=== PATIENT | male | born 1945 | race Caucasian/White ===

== ENCOUNTER 2019-02-03 10:12 | Observation (INO) ==
[2019-02-03] MEDS ORDERED: ASPIRIN CHEW 324 MG PO STA (10:26)
[2019-02-03] MEDS ORDERED: NITROGLYCERIN 2% OINTMENT 30GM TUBE EXT STA (10:26)
[2019-02-03 10:49] LABS: Basophils # (auto) 0.02 K/uL (0-0.2); Basophils % (auto) 0.2 %; Hematocrit (blood only) 43.6 % (42-52); Hemoglobin 15.6 g/dL (14.0-18.0); Immature Granulocytes # (auto) 0.04 K/uL (0.00-0.02); Immature Granulocytes % (auto) 0.4 %; Lymphocytes % (auto) 21.6 %; Mean Corpuscular Hgb Conc 35.8 g/dL (32-36); Mean Corpuscular Volume 88.8 fL (80-100); Mean Platelet Volume 10.2 fL (7.4-10.4); Monocytes # (auto) 0.58 K/uL (0.11-0.59); Neutrophils % (auto) 70.8 %; Platelet Count 229 K/uL (130-400); RDW Coefficient of Variation 13.5 % (11.5-14.5); Red Blood Count 4.91 M/uL (4.7-6.1); White Blood Count 9.74 K/uL (4.8-10.8)
--- NOTE | 2019-02-03 10:52 | XRay Report ---
SINGLE VIEW CHEST CLINICAL HISTORY: Atypical chest pain. FINDINGS: An AP, portable, upright chest radiograph is compared to study dated 04/11/2014. The examina tion is degraded by portable technique and patient rotation. The cardiomediastinal silhouette is unr emarkable, noting atherosclerotic calcification of the thoracic aorta. There is bibasilar atelectasis . No airspace consolidation or large pleural effusion is identified. No pneumothorax is seen. The ske letal structures are osteopenic. The bony thorax is grossly intact. IMPRESSION: No acute cardiopulmonary abnormality. Electronically signed by: Carlos Jennings M.D. 02/03/2019 10:51 AM
[2019-02-03 10:56] LABS: iSTAT Creatinine 0.8 mg/dl (0.6-1.3); iSTAT Hemoglobin 15.3 g/dl (14.0-18.0); iSTAT Ionized Calcium 1.18 mmol/l (1.12-1.32); iSTAT Potassium 4.3 mEq/L (3.3-5.0)
[2019-02-03 11:06] LABS: Alanine Aminotransferase 39 U/L (12-78); Albumin Level 3.7 gm/dl (3.4-5.0); Aspartate Aminotransferase 24 U/L (15-37); BUN Creatinine Ratio 18.8 (10-20); Blood Urea Nitrogen 19 mg/dl (7-18); Calcium 8.9 mg/dl (8.5-10.1); Carbon Dioxide 18 mmol/L (21-32); Chloride 106 mmol/L (98-107); Creatinine Clr Calc Pharmacy 81.6 ml/min; Est GFR (African American) 85.3; Est GFR (Non-African American) 73.6; Glucose 173 mg/dl (70-99); Potassium 4.2 mmol/L (3.5-5.1); Sodium 136 mmol/L (136-145)
[2019-02-03 11:11] LABS: Alkaline Phosphatase 66 U/L (45-117); Bilirubin,Total 0.5 mg/dl (0.2-1); Creatine Kinase 163 U/L (39-308); Creatine Kinase MB 2.3 ng/ml (0.5-3.6); Globulin 3.6 gm/dl (2.5-4.0); Total Protein 7.3 gm/dl (6.4-8.2); Troponin I < 0.015 ng/ml (0-0.045)
[2019-02-03] MEDS ORDERED: OPTIRAY 320 125ml IV PRN (11:47)
--- NOTE | 2019-02-03 12:02 | CT Scan Report ---
CT ANGIOGRAM OF THE CHEST CLINICAL HISTORY: Atypical chest pain. Dyspnea. COMPARISON STUDY: Chest x-ray dated 02/03/2019. TECHNIQUE: Following the IV administration of 97 cc of Optiray 320, CT angiogram of the chest was per formed from the upper abdomen to the thoracic inlet utilizing the pulmonary embolus protocol. Images are reviewed in the axial, sagittal, and coronal planes. 3-D MIPS images are created and assessed. IV contrast was administered without complication. A dose lowering technique was utilized adhering to the principles of ALARA. CT DOSE: 728.48 mGy.cm FINDINGS: Thyroid: The thyroid gland is mildly enlarged and heterogeneous. Thoracic aorta: There is atherosclerotic calcification of the thoracic aorta, which is normal in shanna carrillo and demonstrates standard 3-vessel arch anatomy. The thoracic aorta is not well opacified. Pulmonary vasculature: The pulmonary trunk is normal in caliber. There are no filling defects identif ied in main, lobar, or segmental pulmonary branches to suggest pulmonary embolus. Heart: The heart is top normal in size and there is trace pericardial effusion. The coronary arteries are densely calcified. Lungs and pleural spaces: Emphysematous change is noted. There is no airspace consolidation or pleura l effusion. Bibasilar scarring/atelectasis is observed. The trachea and central airways are clear. Mediastinum: There is no mediastinal lymphadenopathy. Kathy: Clear. Axillae: There is no axillary lymphadenopathy. Upper abdomen: There is a small hiatal hernia. Circumferential wall thickening is noted in the distal esophagus. The liver appears steatotic. Skeletal structures: The skeletal structures are osteopenic. Mild degenerative change is noted throug hout the thoracic spine. No lytic or blastic bony lesions are seen. IMPRESSION: 1. There is no evidence of pulmonary embolus in the main, lobar, or segmental pulmonary arteries. 2. Emphysema. 3. There is no airspace consolidation or pleural effusion. 4. There is a small hiatal hernia, and circumferential wall thickening is noted in the distal esophag us. Correlate clinically for evidence of esophagitis. This could be further assessed by endoscopy if clinically warranted. Electronically signed by: Carlos Jennings M.D. 02/03/2019 12:00 PM
[2019-02-03] MEDS ORDERED: SUCRALFATE 1 GM TAB PO STA (12:05)
[2019-02-03] MEDS ORDERED: FAMOTIDINE 20 MG TAB PO ONE (12:05)
[2019-02-03] MEDS: GI COCKTAIL ED USE PO ONE ×2 (12:24→12:25)
[2019-02-03] MEDS ORDERED: NITROGLYCERIN SL 0.4 MG/TAB TAB SL PRN (13:56)
[2019-02-03] MEDS ORDERED: POLYETHYLENE (MIRALAX) 17 GM PACK PO PRN (13:56)
[2019-02-03] MEDS ORDERED: ONDANSETRON INJ 2 MG/ML 2 ML VIAL IV PRN (13:56)
[2019-02-03] MEDS ORDERED: ACETAMINOPHEN 325 MG TAB PO PRN (13:56)
[2019-02-03] MEDS ORDERED: GLUCAGON FOR INJ 1 MG VIAL SQ PRN (14:35)
[2019-02-03] MEDS ORDERED: GLUCOSE 10 TABS/TUBE PO PRN (14:35)
[2019-02-03] MEDS ORDERED: CARBOHYDRATES FOR HYPOGLYCEMIA PO PRN (14:35)
[2019-02-03] MEDS ORDERED: DEXTROSE 50% 50 ML SYRINGE IV PRN (14:35)
[2019-02-03] MEDS ORDERED: GLUCOSE 40% GEL 15 GM TUBE PO PRN (14:35)
[2019-02-03] MEDS ORDERED: ALBUT/IPRATROP 3MG/0.5MG NEB 3 ML VIAL NEB PRN (14:36)
--- NOTE | 2019-02-03 14:43 | Emergency Department Note ---
Entered by Violeta Israel acting as a scribe for Lele Larson MD History of Present Illness General Chief complaint: Chest Pain Stated complaint: CHEST PAIN, LEFT ARM NUMBNESS- CARDIAC HX Time Seen by Provider: 02/03/19 10:20 Source: patient Mode of arrival: wheelchair Limitations: no limitations History of Present Illness Onset (ago): hour(s) 4 Location: chest Radiation: non-radiation Pain Consistency: + constant Quality: + other ("tightness") Relieved By: + rest (laying down) Exacerbated By: + movement Associated symptoms: + diaphoresis and + other (+cold symptoms, +left arm pain) Treatments prior to arrival: none The patient is a 73 year old male who presents to the Emergency Room with complaints of chest pain since 0830 this morning. He describes the pain as feeling like "tightness". Laying down helps to relieve his pain and movement worsens his discomfort. He admits to a history of 2 previous AR's and states he had similar pain back in 2008 before undergoing a cardiac catheterization. He also complains of left arm pain and diaphoresis. The patient does take daily blood thinners. He denies taking any medications for ED. He does admit to some recent cold symptoms, but states they have mostly resolved. Allergies Allergy/AdvReac Type Severity Reaction Status Date / Time No Known Allergies Allergy Unverified 02/03/19 12:22 Past Med/Surg History Medical History History of heart attack Social History Preferred Language: Marshallese Communication Ability: Effective Hand Stripper Required: No Beliefs That Will Affect Care: None Current Living Situation: Alone Other Information That Helps Us Care for You: No Feels Safe at Home: Yes Safety Concerns: Feels Safe At This Time Smoking Status: Former smoker Hx Alcohol Use: No Hx Substance Use: No Review of Systems See HPI for pertinent positives & negatives. and A total of 10 systems reviewed and were otherwise negative Physical Exam Vital Signs Vital Signs - 24 hr 02/03/19 10:20 02/03/19 10:23 02/03/19 10:26 Temperature 36.6 C Temperature Source Oral Sepsis Recent Fever Within 48 Hours No Sepsis New/Unexplained Change in Mental Status No Sepsis Action Taken by Nursing No Action Required Pulse Rate 190 H 100 H 97 H Pulse Rate [Apical] 100 H Pulse Rate [Finger] Pulse Rate from SpO2 Sensor 99 H 96 H Pulse Rhythm Regular Pulse Rhythm [Apical] Regular Pulse Rhythm [Finger] Pulse Strength [Apical] Normal Pulse Strength [Finger] Respiratory Rate 26 H 18 Respiratory Effort / Characteristics SOB on Exertion Respiratory Depth Normal Respiratory Pattern Regular Blood Pressure 120/68 146/105 H Blood Pressure [Right Arm] 146/105 H Blood Pressure Mean 85 118 Blood Pressure Mean [Right Arm] 118 Blood Pressure Position [Right Arm] Lying Pulse Oximetry 94 97 96 Oxygen Delivery Method Room Air Room Air 02/03/19 10:42 02/03/19 10:45 02/03/19 10:58 Temperature Temperature Source Sepsis Recent Fever Within 48 Hours Sepsis New/Unexplained Change in Mental Status Sepsis Action Taken by Nursing Pulse Rate 98 H 100 H 103 H Pulse Rate [Apical] Pulse Rate [Finger] Pulse Rate from SpO2 Sensor 97 H 100 H 102 H Pulse Rhythm Pulse Rhythm [Apical] Pulse Rhythm [Finger] Pulse Strength [Apical] Pulse Strength [Finger] Respiratory Rate 23 24 17 Respiratory Effort / Characteristics Respiratory Depth Respiratory Pattern Blood Pressure 104/64 Blood Pressure [Right Arm] Blood Pressure Mean 77 Blood Pressure Mean [Right Arm] Blood Pressure Position [Right Arm] Pulse Oximetry 93 94 92 Oxygen Delivery Method 02/03/19 11:00 02/03/19 11:01 02/03/19 11:15 Temperature Temperature Source Sepsis Recent Fever Within 48 Hours Sepsis New/Unexplained Change in Mental Status Sepsis Action Taken by Nursing Pulse Rate 101 H 98 H 98 H Pulse Rate [Apical] Pulse Rate [Finger] 101 H Pulse Rate from SpO2 Sensor 102 H 99 H 98 H Pulse Rhythm Pulse Rhythm [Apical] Pulse Rhythm [Finger] Pulse Strength [Apical] Pulse Strength [Finger] Respiratory Rate 25 H 25 H 22 Respiratory Effort / Characteristics Respiratory Depth Respiratory Pattern Blood Pressure 106/74 Blood Pressure [Right Arm] 104/64 Blood Pressure Mean 84 Blood Pressure Mean [Right Arm] 77 Blood Pressure Position [Right Arm] Pulse Oximetry 93 93 92 Oxygen Delivery Method Room Air 02/03/19 11:30 02/03/19 11:31 02/03/19 11:53 Temperature Temperature Source Sepsis Recent Fever Within 48 Hours Sepsis New/Unexplained Change in Mental Status Sepsis Action Taken by Nursing Pulse Rate 87 87 Pulse Rate [Apical] Pulse Rate [Finger] 83 Pulse Rate from SpO2 Sensor 88 88 Pulse Rhythm Pulse Rhythm [Apical] Pulse Rhythm [Finger] Pulse Strength [Apical] Pulse Strength [Finger] Respiratory Rate 21 21 18 Respiratory Effort / Characteristics Respiratory Depth Respiratory Pattern Blood Pressure 106/69 Blood Pressure [Right Arm] 124/86 Blood Pressure Mean 81 Blood Pressure Mean [Right Arm] 98 Blood Pressure Position [Right Arm] Pulse Oximetry 93 92 96 Oxygen Delivery Method Room Air 02/03/19 11:54 02/03/19 11:55 02/03/19 12:00 Temperature Temperature Source Sepsis Recent Fever Within 48 Hours Sepsis New/Unexplained Change in Mental Status Sepsis Action Taken by Nursing Pulse Rate 78 79 83 Pulse Rate [Apical] Pulse Rate [Finger] Pulse Rate from SpO2 Sensor 79 79 84 Pulse Rhythm Pulse Rhythm [Apical] Pulse Rhythm [Finger] Pulse Strength [Apical] Pulse Strength [Finger] Respiratory Rate 22 20 24 Respiratory Effort / Characteristics Respiratory Depth Respiratory Pattern Blood Pressure 124/86 114/79 Blood Pressure [Right Arm] Blood Pressure Mean 98 90 Blood Pressure Mean [Right Arm] Blood Pressure Position [Right Arm] Pulse Oximetry 97 97 96 Oxygen Delivery Method 02/03/19 12:01 02/03/19 12:15 02/03/19 12:26 Temperature Temperature Source Sepsis Recent Fever Within 48 Hours Sepsis New/Unexplained Change in Mental Status Sepsis Action Taken by Nursing Pulse Rate 85 84 Pulse Rate [Apical] Pulse Rate [Finger] 91 H Pulse Rate from SpO2 Sensor 85 84 Pulse Rhythm Pulse Rhythm [Apical] Pulse Rhythm [Finger] Pulse Strength [Apical] Pulse Strength [Finger] Respiratory Rate 26 H 13 19 Respiratory Effort / Characteristics Respiratory Depth Respiratory Pattern Blood Pressure Blood Pressure [Right Arm] 114/79 Blood Pressure Mean Blood Pressure Mean [Right Arm] 90 Blood Pressure Position [Right Arm] Pulse Oximetry 94 95 95 Oxygen Delivery Method Room Air 02/03/19 12:30 02/03/19 12:31 02/03/19 12:45 Temperature Temperature Source Sepsis Recent Fever Within 48 Hours Sepsis New/Unexplained Change in Mental Status Sepsis Action Taken by Nursing Pulse Rate 87 84 79 Pulse Rate [Apical] Pulse Rate [Finger] Pulse Rate from SpO2 Sensor 85 84 77 Pulse Rhythm Pulse Rhythm [Apical] Pulse Rhythm [Finger] Pulse Strength [Apical] Pulse Strength [Finger] Respiratory Rate 29 H 29 H 18 Respiratory Effort / Characteristics Respiratory Depth Respiratory Pattern Blood Pressure 129/91 Blood Pressure [Right Arm] Blood Pressure Mean 103 Blood Pressure Mean [Right Arm] Blood Pressure Position [Right Arm] Pulse Oximetry 96 97 96 Oxygen Delivery Method 02/03/19 13:00 02/03/19 13:15 02/03/19 13:24 Temperature Temperature Source Sepsis Recent Fever Within 48 Hours Sepsis New/Unexplained Change in Mental Status Sepsis Action Taken by Nursing Pulse Rate 68 74 74 Pulse Rate [Apical] Pulse Rate [Finger] Pulse Rate from SpO2 Sensor 71 76 Pulse Rhythm Pulse Rhythm [Apical] Pulse Rhythm [Finger] Pulse Strength [Apical] Pulse Strength [Finger] Respiratory Rate 22 22 22 Respiratory Effort / Characteristics Respiratory Depth Respiratory Pattern Blood Pressure Blood Pressure [Right Arm] Blood Pressure Mean Blood Pressure Mean [Right Arm] Blood Pressure Position [Right Arm] Pulse Oximetry 98 95 95 Oxygen Delivery Method Room Air 02/03/19 13:56 Temperature 36.6 C Temperature Source Oral Sepsis Recent Fever Within 48 Hours Sepsis New/Unexplained Change in Mental Status Sepsis Action Taken by Nursing Pulse Rate 74 Pulse Rate [Apical] 72 Pulse Rate [Finger] 72 Pulse Rate from SpO2 Sensor Pulse Rhythm Pulse Rhythm [Apical] Regular Pulse Rhythm [Finger] Regular Pulse Strength [Apical] Normal Pulse Strength [Finger] Normal Respiratory Rate 20 Respiratory Effort / Characteristics Non-Labored Spontaneous Respiratory Depth Normal Respiratory Pattern Regular Blood Pressure Blood Pressure [Right Arm] 149/99 H Blood Pressure Mean Blood Pressure Mean [Right Arm] 115 Blood Pressure Position [Right Arm] Lying Pulse Oximetry 97 Oxygen Delivery Method Room Air GENERAL: Awake, alert, ashen in appearance, in no distress HENT: Normocephalic, atraumatic. Oropharynx unremarkable. EYES: Normal conjunctiva. Sclera non-icteric. NECK: Supple. No nuchal rigidity. FROM. No masses. RESPIRATORY: Clear to auscultation. No wheezes. No rales. Normal respiratory effort. CARDIAC: Normal rate. Normal rhythm. No murmurs. No rubs. Extremities warm and well perfused. Pulses equal. No JVD. GI: Soft, non-distended. No tenderness to palpation. No rebound or guarding. No masses. RECTAL: Deferred. MUSCULOSKELETAL: Atraumatic. Chest examination reveals no tenderness. The back is symmetrical on inspection without obvious abnormality. There is no CVA tenderness to palpation. No joint edema. LOWER EXTREMITIES: Calves are equal size bilaterally and non-tender. No edema. No discoloration. NEURO: Normal sensorium. No sensory or motor deficits noted. Course 1021: The patient was evaluated in room A1, and a complete history and physical examination were performed. 1221: I discussed the patients case with Roseline Baeza PA-C, [facility]. The patient will be further evaluated. 1235: I reevaluated the patient. He is resting comfortably. I discussed my recommendation he remain in the hospital for further evaluation and management and he verbalized complete understanding and agreement. Consultations Consultation #1: I discussed the patients case with Roseline Baeza PA-C, [facility]. The patient will be further evaluated. Time: 12:21 Administered Medications Discontinued Medications Al Hydrox/Mg Hydrox/Simethicone () 1 dose PO ONE ONE Stop: 02/03/19 12:06 Last Admin: 02/03/19 12:25 Dose: 1 dose Documented by: [id number] Admin: 02/03/19 12:24 Dose: 1 dose Documented by: [id number] Aspirin (Aspirin) 324 mg PO NOW STA Stop: 02/03/19 10:27 Last Admin: 02/03/19 10:58 Dose: 324 mg Documented by: [id number] Famotidine (Pepcid) 20 mg PO NOW ONE Stop: 02/03/19 12:06 Last Admin: 02/03/19 12:25 Dose: 20 mg Documented by: [id number] Ioversol (Optiray 320 125ml) 97 ml IV ONCE PRN PRN Reason: Interaction Checking Stop: 02/07/19 11:46 Last Admin: 02/03/19 11:48 Dose: 97 ml Documented by: [id number] Nitroglycerin (Nitro-Bid 2%) 1 inch EXT NOW STA Stop: 02/03/19 10:27 Last Admin: 02/03/19 10:59 Dose: 1 inch Documented by: [id number] Sucralfate (Carafate Tab) 1 gm PO NOW STA Stop: 02/03/19 12:06 Last Admin: 02/03/19 12:25 Dose: 1 gm Documented by: [id number] Medical Decision Making Differential Diagnosis Differential diagnoses includes but is not limited to acute coronary syndrome, myocardial infarction, pericarditis, pulmonary embolus, aortic dissection, pneumonia, pneumothorax, musculoskeletal, shingles, esophageal. Medical Records Attestation: I reviewed the patient's medical records. Home Medications Current Medication List: was personally reviewed by me Laboratory Data Attestation: I reviewed the patient's lab results. Result diagrams: 02/03/19 10:31 02/03/19 10:31 Lab Results 02/03/19 02/03/19 02/03/19 Range/Units 10:31 10:31 10:45 WBC 9.74 (4.8-10.8) K/uL RBC 4.91 (4.7-6.1) M/uL Hgb 15.6 (14.0-18.0) g/dL POC Hgb 15.3 (14.0-18.0) g/dl Hct 43.6 (42-52) % POC Hct 45 (42-52) % MCV 88.8 (80-100) fL MCH 31.8 (25-34) pg MCHC 35.8 (32-36) g/dL RDW Std Deviation 44.0 (36.4-46.3) fL RDW Coeff of Jatinder 13.5 (11.5-14.5) % Plt Count 229 (130-400) K/uL MPV 10.2 (7.4-10.4) fL Immature Gran % (Auto) 0.4 % Neut % (Auto) 70.8 % Lymph % (Auto) 21.6 % [place] % (Auto) 6.0 % Eos % (Auto) 1.0 % Baso % (Auto) 0.2 % Immature Gran # (Auto) 0.04 H (0.00-0.02) K/uL Neut # (Auto) 6.90 H (1.4-6.5) K/uL Lymph # (Auto) 2.10 (1.2-3.4) K/uL [place] # (Auto) 0.58 (0.11-0.59) K/uL Eos # (Auto) 0.10 (0-0.5) K/uL Baso # (Auto) 0.02 (0-0.2) K/uL POC Sodium 138 (135-144) mEq/L Sodium 136 (136-145) mmol/L POC Potassium 4.3 (3.3-5.0) mEq/L Potassium 4.2 (3.5-5.1) mmol/L POC Chloride 102 (101-112) mEq/L Chloride 106 (98-107) mmol/L Carbon Dioxide 18 L (21-32) mmol/L POC Total CO2 19 L (24-31) mEq/l Anion Gap 12.0 H (3-11) POC Anion Gap 23.0 (16-25) mmol/L POC BUN 20 H (7-18) mg/dl BUN 19 H (7-18) mg/dl Creatinine 1.02 (0.6-1.4) mg/dl POC Creatinine 0.8 (0.6-1.3) mg/dl Est Cr Clr Drug Dosing 81.6 ml/min Est GFR ( Amer) 85.3 Est GFR (Non-Af Amer) 73.6 BUN/Creatinine Ratio 18.8 (10-20) Glucose 173 H (70-99) mg/dl POC Glucose (70-99) POC Glucose (other) 184 H (70-99) mg/dl Calcium 8.9 (8.5-10.1) mg/dl POC Ioniz Calcium Ruddy 1.18 (1.12-1.32) mmol/l Total Bilirubin 0.5 (0.2-1) mg/dl AST 24 (15-37) U/L ALT 39 (12-78) U/L Alkaline Phosphatase 66 (45-117) U/L Total Creatine Kinase 163 (39-308) U/L CK-MB (CK-2) 2.3 (0.5-3.6) ng/ml CK/CKMB % Calc 1.4 (0-3.0) Troponin I < 0.015 (0-0.045) ng/ml Total Protein 7.3 (6.4-8.2) gm/dl Albumin 3.7 (3.4-5.0) gm/dl Globulin 3.6 (2.5-4.0) gm/dl Albumin/Globulin Ratio 1.0 (0.9-2) Lipase 193 (73-393) U/L 02/03/19 Range/Units 14:04 WBC (4.8-10.8) K/uL RBC (4.7-6.1) M/uL Hgb (14.0-18.0) g/dL POC Hgb (14.0-18.0) g/dl Hct (42-52) % POC Hct (42-52) % MCV (80-100) fL MCH (25-34) pg MCHC (32-36) g/dL RDW Std Deviation (36.4-46.3) fL RDW Coeff of Jatinder (11.5-14.5) % Plt Count (130-400) K/uL MPV (7.4-10.4) fL Immature Gran % (Auto) % Neut % (Auto) % Lymph % (Auto) % [place] % (Auto) % Eos % (Auto) % Baso % (Auto) % Immature Gran # (Auto) (0.00-0.02) K/uL Neut # (Auto) (1.4-6.5) K/uL Lymph # (Auto) (1.2-3.4) K/uL [place] # (Auto) (0.11-0.59) K/uL Eos # (Auto) (0-0.5) K/uL Baso # (Auto) (0-0.2) K/uL POC Sodium (135-144) mEq/L Sodium (136-145) mmol/L POC Potassium (3.3-5.0) mEq/L Potassium (3.5-5.1) mmol/L POC Chloride (101-112) mEq/L Chloride (98-107) mmol/L Carbon Dioxide (21-32) mmol/L POC Total CO2 (24-31) mEq/l Anion Gap (3-11) POC Anion Gap (16-25) mmol/L POC BUN (7-18) mg/dl BUN (7-18) mg/dl Creatinine (0.6-1.4) mg/dl POC Creatinine (0.6-1.3) mg/dl Est Cr Clr Drug Dosing ml/min Est GFR ( Amer) Est GFR (Non-Af Amer) BUN/Creatinine Ratio (10-20) Glucose (70-99) mg/dl POC Glucose 92 (70-99) POC Glucose (other) (70-99) mg/dl Calcium (8.5-10.1) mg/dl POC Ioniz Calcium Ruddy (1.12-1.32) mmol/l Total Bilirubin (0.2-1) mg/dl AST (15-37) U/L ALT (12-78) U/L Alkaline Phosphatase (45-117) U/L Total Creatine Kinase (39-308) U/L CK-MB (CK-2) (0.5-3.6) ng/ml CK/CKMB % Calc (0-3.0) Troponin I (0-0.045) ng/ml Total Protein (6.4-8.2) gm/dl Albumin (3.4-5.0) gm/dl Globulin (2.5-4.0) gm/dl Albumin/Globulin Ratio (0.9-2) Lipase (73-393) U/L Imaging Data Radiologist's Impression: Radiology results as stated below per my review and the radiologist's interpretation: SINGLE VIEW CHEST CLINICAL HISTORY: Atypical chest pain. FINDINGS: An AP, portable, upright chest radiograph is compared to study dated 04/11/2014. The examination is degraded by portable technique and patient rotation. The cardiomediastinal silhouette is unremarkable, noting atherosclerotic calcification of the thoracic aorta. There is bibasilar atelectasis. No airspace consolidation or large pleural effusion is identified. No pneumothorax is seen. The skeletal structures are osteopenic. The bony thorax is grossly intact. IMPRESSION: No acute cardiopulmonary abnormality. Electronically signed by: Carlos Jennings M.D. 02/03/2019 10:[address] ANGIOGRAM OF THE CHEST CLINICAL HISTORY: Atypical chest pain. Dyspnea. COMPARISON STUDY: Chest x-ray dated 02/03/2019. TECHNIQUE: Following the IV administration of 97 cc of Optiray 320, CT angiogram of the chest was performed from the upper abdomen to the thoracic inlet utilizing the pulmonary embolus protocol. Images are reviewed in the axial, sagittal, and coronal planes. 3-D MIPS images are created and assessed. IV contrast was administered without complication. A dose lowering technique was utilized adhering to the principles of ALARA. CT DOSE: 728.48 mGy.cm FINDINGS: Thyroid: The thyroid gland is mildly enlarged and heterogeneous. Thoracic aorta: There is atherosclerotic calcification of the thoracic aorta, which is normal in caliber and demonstrates standard 3-vessel arch anatomy. The thoracic aorta is not well opacified. Pulmonary vasculature: The pulmonary trunk is normal in caliber. There are no filling defects identified in main, lobar, or segmental pulmonary branches to suggest pulmonary embolus. Heart: The heart is top normal in size and there is trace pericardial effusion. The coronary arteries are densely calcified. Lungs and pleural spaces: Emphysematous change is noted. There is no airspace consolidation or pleural effusion. Bibasilar scarring/atelectasis is observed. The trachea and central airways are clear. Mediastinum: There is no mediastinal lymphadenopathy. Kathy: Clear. Axillae: There is no axillary lymphadenopathy. Upper abdomen: There is a small hiatal hernia. Circumferential wall thickening is noted in the distal esophagus. The liver appears steatotic. Skeletal structures: The skeletal structures are osteopenic. Mild degenerative change is noted throughout the thoracic spine. No lytic or blastic bony lesions are seen. IMPRESSION: 1. There is no evidence of pulmonary embolus in the main, lobar, or segmental pulmonary arteries. 2. Emphysema. 3. There is no airspace consolidation or pleural effusion. 4. There is a small hiatal hernia, and circumferential wall thickening is noted in the distal esophagus. Correlate clinically for evidence of esophagitis. This could be further assessed by endoscopy if clinically warranted. Electronically signed by: Carlos Jennings M.D. 02/03/2019 12:00 PM ECG Data Attestation: I personally reviewed and interpreted this ECG as follows: Indication: chest pain Rate (beats per minute): 97 Rhythm: normal sinus Findings: no ST depression and no ST elevation Blood Pressure Blood Pressure Findings: Normal blood pressure Blood Pressure Disposition: did not require urgent referral MDM Narrative This is a 73-year-old male who presents emergency department complaining of c hest pain. The chest pain was relieved by nitro. The patient currently has no complaints. His EKG does not show any evidence of a cardiac ischemia. Patient has a history of coronary artery disease. Because of this I did discuss the case with the hospitalist service who agreed to admit the patient. Patient was in agreement with the treatment plan. Impression & Plan Chest pain Discharge Plan Visit Data *Final* Discharge Date/Time: 02/03/19 13:24 Chief Complaint: Chest Pain Stated Complaint: CHEST PAIN, LEFT ARM NUMBNESS- CARDIAC HX ED Provider: Lele Larson Discharge Problem: Chest pain Patient Disposition: Admitted As Inpatient Discharge Instructions Interventions: ED Discharge Assessment Last Done: 02/03/19 13:24 The scribe's documentation has been prepared under my direction and personally reviewed by me in its entirety. I confirm that the note above accurately reflects all work, treatment, procedures, and medical decision making performed by me.
[2019-02-03] MEDS ORDERED: LABETALOL HCL IV 5 MG/ML 20ML IV PRN (14:44)
--- NOTE | 2019-02-03 16:41 | History & Physical Report ---
Date of Service February 03, 2019 Assessment & Plan (1) Chest pain: This is a 73yo M with a PMH of Coronary Artery Disease, DM II, HTN and other medical problems listed below who presents to the ED after developing chest pain this morning around 8 AM that has since resolved. -R/o ACS; risk factors include HTN, DM II, HLD, former smoker -Initial troponin negative -EKG with ? lateral lead ST depression but not in contiguous leads -CXR-No acute cardiopulmonary abnormality, chest CTA without evidence of PE -Trend serial cardiac enzymes -Check 2D echo -Routine cardiology consult -NPO after midnight (2) CAD (coronary artery disease): Reported history of cardiac catheterization in 2007 at [facility], no intervention at that time due to complete occlusion of one coronary with collateral vessel development -Underwent an exercise stress test in summer 2017 that was reportedly negative -Will request to obtain records from outside hospital -Continue isosorbide mononitrate (need to confirm home dose), aspirin, statin (3) Diabetes mellitus, type II: Unknown a1c -Hold home agents -Basal/bolus insulin while in-patient -BSG AC HS (4) HTN (hypertension): Continue lisinopril/hctz, lopressor with hold parameters (5) HLD (hyperlipidemia): Continue statin DVT Ppx: SCDs Code status: FULL PCP: [facility] Dispo: Observation telemetry. Plan to return home once medically stable. Patient seen in collaboration with Dr. Tan. Please see addendum. History of Present Illness Chief Complaint: chest pain Primary Care Provider: NO PCP This is a 73yo M with a PMH of Coronary Artery Disease, DM II, HTN and other medical problems listed below who presents to the ED after developing chest pain this morning around 8 AM. Patient was driving his grandson to [place] when he developed sudden onset left-sided chest pain and pressure with radiation to left arm. Also associated with diaphoresis, lightheadedness and shortness of breath. Came to the ED for further evaluation. Chest pain subsided after nitroglycerin and patient has remained asymptomatic. Receives majority of care through [facility] and underwent a cardiac catheterization in 2007 but did not have any stents placed. Reports undergoing an exercise stress test in the summer 2017 that was normal. Is not sure dosing on any of his medications, but daughter is planning to return home to bring in medication list this evening. States that he is compliant with all meds, including insulin for diabetes. Gloria personal history of heart attack but has experienced similar chest pain 6 years ago. Significant family history of CAD, including father and brother experiencing MIs in their early 60s. Denies fever, chills, lightheadedness, headache, palpitations, shortness of breath, wheezing, nausea, vomiting, abdominal pain, diarrhea or constipation. No lower extremity swelling. Allergies Allergy/AdvReac Type Severity Reaction Status Date / Time No Known Allergies Allergy Unverified 02/03/19 12:22 Home Medications Home Medications Medication Instructions Recorded Confirmed Type albuterol sulfate 2 puff INHALATION QID PRN 02/03/19 02/03/19 History atorvastatin 80 mg PO HS 02/03/19 02/03/19 History budesonide-formoterol 2 puff INHALATION BID 02/03/19 02/03/19 History gabapentin 100 mg PO BID 02/03/19 02/03/19 History insulin glargine 30 units SUBCUT HS 02/03/19 02/03/19 History isosorbide mononitrate 0 mg PO DAILY 02/03/19 02/03/19 History lisinopril-hydrochlorothiazide 1 tab PO DAILY 02/03/19 02/03/19 History metformin 2 tabs PO PM 02/03/19 02/03/19 History metoprolol tartrate 25 mg PO DAILY 02/03/19 02/03/19 History Past Med/Surg History Medical History HLD (hyperlipidemia) (Chronic) Diabetes mellitus, type II (Chronic) HTN (hypertension) (Chronic) CAD (coronary artery disease) (Chronic) Surgical History History of cholecystectomy (Chronic) Social History Preferred Language: Occitan Communication Ability: Effective Bench Scientist Required: No Beliefs That Will Affect Care: None Current Living Situation: Alone Other Information That Helps Us Care for You: No Feels Safe at Home: Yes Safety Concerns: Feels Safe At This Time Smoking Status: Former smoker Hx Alcohol Use: No Hx Substance Use: Yes (medical ) Review of Systems Ten systems reviewed and negative except as noted in the HPI. Physical Exam Vital Signs (Past 24 Hours): Last Vital Signs Temp 36.6 C 02/03/19 15:22 Pulse 74 02/03/19 16:00 Resp 20 02/03/19 15:22 BP 123/79 02/03/19 15:22 Pulse Ox 94 02/03/19 15:22 Physical Exam: General Appearance: WD/WN, no apparent distress, resting comfortably Head: normocephalic, atraumatic Eyes: normal inspection, PERRL, EOMI ENT: hearing grossly normal, pharynx normal (moist mucous membranes) Neck: supple, no JVD, no adenopathy Respiratory/Chest: No chest tenderness on wall. lungs clear to auscultation. No wheezes, rales or rhonci. No respiratory distress or accessory muscle use Cardiovascular: Regular rate, rhythm, no murmur, normal peripheral pulses Abdomen/GI: Normal bowel sounds, soft, non-tender to palpation Extremities/Musculoskelatal: normal inspection, no calf tenderness, normal capillary refill, no pedal edema Neurologic/Psych: alert, normal mood/affect, oriented x 3 Skin: normal color, warm/dry Results & Data Laboratory Results Short CBC 02/03/19 Range/Units 10:31 WBC 9.74 (4.8-10.8) K/uL Hgb 15.6 (14.0-18.0) g/dL Hct 43.6 (42-52) % Plt Count 229 (130-400) K/uL BMP 02/03/19 10:31 Sodium 136 Potassium 4.2 Chloride 106 Carbon Dioxide 18 L BUN 19 H Creatinine 1.02 Glucose 173 H Calcium 8.9 Cardiac Enzymes 02/03/19 Range/Units 10:31 Total Creatine Kinase 163 (39-308) U/L CK-MB (CK-2) 2.3 (0.5-3.6) ng/ml Troponin I < 0.015 (0-0.045) ng/ml Liver Function 02/03/19 Range/Units 10:31 Total Bilirubin 0.5 (0.2-1) mg/dl AST 24 (15-37) U/L ALT 39 (12-78) U/L Alkaline Phosphatase 66 (45-117) U/L Albumin 3.7 (3.4-5.0) gm/dl Diagnostic Findings CXR: IMPRESSION: No acute cardiopulmonary abnormality. Chest CTA: IMPRESSION: 1. There is no evidence of pulmonary embolus in the main, lobar, or segmental pulmonary arteries. 2. Emphysema. 3. There is no airspace consolidation or pleural effusion. 4. There is a small hiatal hernia, and circumferential wall thickening is noted in the distal esophagus. Correlate clinically for evidence of esophagitis. This could be further assessed by endoscopy if clinically warranted. Supervising Physician Co-Signing Physician Notes Patient is a 73-year-old male with history of coronary artery disease, diabetes, hypertension and other problems presents with history of chest pain which is sudden in onset, retrosternal in location, describes as tightness, associated with left arm numbness which lasted for about 1-1/2 hours and resolved after n itroglycerin given in ED. Patient also states having associated diaphoresis, lightheadedness and shortness of breath. Patient's initial troponin was negative. Repeat troponin was elevated at 0.3. EKG showed normal sinus rhythm with some ST changes in lateral leads. On exam patient is moderately built and nourished, no apparent distress, lungs- decreased breath sounds and cta, S1-S2, no audible murmur, abdomen soft nontender, no pedal edema, neurologically alert awake and oriented, and grossly no focal deficits. Patient is admitted in telemetry unit to rule out ACS. Patient will be started on IV heparin and kept n.p.o. after midnight. Cardiology is consulted. Plan to trend cardiac enzymes, repeat EKG in a.m. and check resting echo. Update A1c, lipid panel. Continue insulin sliding scale and Lantus for diabetes management. Blood pressure is elevated on presentation. Continue home medications and labetalol as needed for better blood pressure control. I personally reviewed the record. Patient is interviewed and examined at bedside. Patient's care is coordinated with Rsoeline Baeza PA-C. Please refer to the documentation above for details of patient's presentation and for discussion of other issues.
[2019-02-03] MEDS: INSULIN ASPART 100 UNITS/ML 3 ML PEN SC SCH ×2 (17:12→19:54)
[2019-02-03] MEDS ORDERED: ALBUTEROL HFA 8 GM INHALER INH PRN (17:19)
[2019-02-03] MEDS ORDERED: Heparin IV Standard *NO* Bolus IV SCH (18:07)
[2019-02-03 19:17] LABS: Partial Thromboplastin Time 27.6 Seconds (21.0-31.0); Prothrombin Time 10.7 Seconds (9.0-12.0)
[2019-02-03] MEDS: Heparin Adult STANDARD Wt-Based Dextrose 5% 25,000 units/500 mL IV SCH (19:53)
[2019-02-03] MEDS: INSULIN GLARGINE SOLOSTAR 100 UNITS/ML 3 ML PEN SC SCH (19:54)
[2019-02-03] MEDS: GABAPENTIN 100 MG CAP PO SCH (19:55)
[2019-02-03] MEDS: BUDESONIDE/FORMOTEROL FUMARATE 160/4.5 60 PUFFS/INHALER INH SCH (19:56)
[2019-02-03] MEDS: ATORVASTATIN 40 MG TAB PO SCH (19:56)
[2019-02-04 02:16] LABS: Hematocrit (blood only) 38.6 % (42-52); Hemoglobin 13.8 g/dL (14.0-18.0); Mean Corpuscular Hgb Conc 35.8 g/dL (32-36); Mean Corpuscular Volume 86.9 fL (80-100); Mean Platelet Volume 9.9 fL (7.4-10.4); Platelet Count 212 K/uL (130-400); RDW Coefficient of Variation 13.5 % (11.5-14.5); RDW Standard Deviation 43.2 fL (36.4-46.3); Red Blood Count 4.44 M/uL (4.7-6.1); White Blood Count 8.11 K/uL (4.8-10.8)
[2019-02-04 02:35] LABS: BUN Creatinine Ratio 17.1 (10-20); Calcium 8.3 mg/dl (8.5-10.1); Creatinine Clr Calc Pharmacy 85.5 ml/min; Est GFR (African American) 90.7; Est GFR (Non-African American) 78.2; Potassium 3.6 mmol/L (3.5-5.1)
[2019-02-04 02:46] LABS: Partial Thromboplastin Time 53.6 Seconds (21.0-31.0)
[2019-02-04] MEDS ORDERED: PERFLUTREN LIPID MICROSPHERE (DEFINITY) IV ONE (06:44)
[2019-02-04] MEDS: INSULIN ASPART 100 UNITS/ML 3 ML PEN SC SCH ×4 (08:09→20:47)
[2019-02-04] MEDS: GABAPENTIN 100 MG CAP PO SCH ×2 (08:13→20:48)
[2019-02-04] MEDS: ASPIRIN 81 MG ECTAB PO SCH (08:13)
[2019-02-04] MEDS: METOPROLOL TARTRATE 25 MG TAB PO SCH (08:13)
[2019-02-04] MEDS: LISINOPRIL/HCTZ 10/12.5MG TAB PO SCH (08:13)
[2019-02-04] MEDS: BUDESONIDE/FORMOTEROL FUMARATE 160/4.5 60 PUFFS/INHALER INH SCH ×2 (08:13→20:48)
[2019-02-04] MEDS: ISOSORBIDE MONO EXTENDED REL 30 MG TABCR PO SCH (08:13)
[2019-02-04 08:17] LABS: Partial Thromboplastin Ratio 2.1
[2019-02-04 08:32] LABS: Partial Thromboplastin Time 57.2 Seconds (21.0-31.0)
[2019-02-04] MEDS: FAMOTIDINE 20 MG TAB PO SCH ×2 (08:33→20:49)
--- NOTE | 2019-02-04 11:00 | Cardiology Consultation ---
Date of Consultation February 04, 2019 Assessment & Plan (1) Acute coronary syndrome: Patient presents with symptoms strongly suggestive of acute coronary syndrome in the setting of multiple risk factors and known coronary artery disease. Symptoms resolved with sublingual nitroglycerin. Is appropriately anticoagulated with warfarin on appropriate medications could not beta-althea JENNIFER inhibitor and statin Plan diagnostic cardiac catheterization in a.m. procedure and risks explained in detail with the patient will anticipate right radial artery approach Patient report any symptoms overnight IV hydration initiated tonight History of Present Illness Reason for Consultation: Acute coronary syndrome, chest pain Requesting Physician: Dr Tan Attending Physician: Ernie Tan MD History of Present Illness Patient is a 73-year-old male with a history of known coronary artery disease with prior chronic coronary occlusion 2007, multiple risk factors including hypertension hyperlipidemia diabetes mellitus and strong family history of coronary disease age less than 65. Patient presents this admission having developed chest pain at rest with radiation to shoulder and neck associated with nausea and diaphoresis strongly suggestive of acute angina pectoris. Symptoms resolved after 1-1/2 hours on presentation to the emergency room with sublingual nitroglycerin. Troponins mildly elevated No further symptoms overnight Patient denies any recent angina myocardial infarction congestive heart failure, denies TIA or stroke. Notes no history rheumatic fever scarlet fever renal or hepatic disease. Notes no recent fevers chills or unexplained infections other than cold in late November. Notes no bleeding difficulties melena hematochezia dysuria hematuria. Takes medications faithfully. Generally active about home walks up to 1 mile per day at slow pace. Notes sleep disruption due to urination but no respiratory issues. Denies cough hoarseness wheeze or hemoptysis. No claudication issues Allergies Allergy/AdvReac Type Severity Reaction Status Date / Time No Known Allergies Allergy Unverified 02/03/19 12:22 Home Medications Home Medications Medication Instructions Recorded Confirmed Type albuterol sulfate 2 puff INHALATION QID PRN 02/03/19 02/03/19 History aspirin 81 mg PO DAILY 02/03/19 02/03/19 History atorvastatin 80 mg PO HS 02/03/19 02/03/19 History budesonide-formoterol 2 puff INHALATION BID 02/03/19 02/03/19 History gabapentin 100 mg PO BID 02/03/19 02/03/19 History insulin glargine 30 units SUBCUT HS 02/03/19 02/03/19 History isosorbide mononitrate 0 mg PO DAILY 02/03/19 02/03/19 History lisinopril-hydrochlorothiazide 1 tab PO DAILY 02/03/19 02/03/19 History metformin 2 tabs PO PM 02/03/19 02/03/19 History metoprolol tartrate 25 mg PO DAILY 02/03/19 02/03/19 History Patient History Medical History HLD (hyperlipidemia) (Chronic) Diabetes mellitus, type II (Chronic) HTN (hypertension) (Chronic) CAD (coronary artery disease) (Chronic) Surgical History History of cholecystectomy (Chronic) Family History Other Coronary heart disease Social History Preferred Language: Nigerien Communication Ability: Effective Retail Mortgage Banker Required: No Beliefs That Will Affect Care: None Current Living Situation: Alone Other Information That Helps Us Care for You: No Feels Safe at Home: Yes Safety Concerns: Feels Safe At This Time Smoking Status: Former smoker Hx Alcohol Use: No Hx Substance Use: Yes (medical ) Review of Systems As per HPI and otherwise negative Physical Exam Vital Signs (Past 24 Hours): Last Vital Signs Temp 36.7 C 02/04/19 07:12 Pulse 68 02/04/19 07:12 Resp 19 02/04/19 07:12 BP 142/85 H 02/04/19 07:12 Pulse Ox 97 02/04/19 07:12 Constitutional: WD/WN, vitals as above no acute distress Eyes: PERRL, conjunctivae normal, anicteric sclerae ENMT: external ear and nose normal, oropharynx normal Mouth: + edentulous Mallampati Class: II Neck: + thick neck Respiratory: normal respiratory effort, lungs clear to auscultation Cardiovascular: Rate/Rhythm: regular rate and regular rhythm Heart Sounds: normal S1 and normal S2; no gallop and no murmur Vessels: femoral pulses present and radial pulses present; no JVD Extremities: no edema Gastrointestinal (Abdomen): normal bowel sounds, soft, nontender, no hepatosplenomegaly Musculoskeletal: no cyanosis or clubbing, extremities motor strength 5/5 Neurologic: PERRL, EOMI, accommodation nl, no face palsy, no dysarthria Psychiatric: A+Ox3, euthymic affect Results & Data Laboratory Results Laboratory Results - last 24 hr 02/03/19 02/03/19 02/03/19 10:31 14:04 16:14 WBC RBC Hgb Hct MCV MCH MCHC RDW Std Deviation RDW Coeff of Jatinder Plt Count MPV PT INR APTT PTT Ratio Sodium 136 Potassium 4.2 Chloride 106 Carbon Dioxide 18 L Anion Gap 12.0 H BUN 19 H Creatinine 1.02 Est Cr Clr Drug Dosing 81.6 Est GFR ( Amer) 85.3 Est GFR (Non-Af Amer) 73.6 BUN/Creatinine Ratio 18.8 Glucose 173 H POC Glucose 92 Calcium 8.9 Magnesium Total Bilirubin 0.5 AST 24 ALT 39 Alkaline Phosphatase 66 Total Creatine Kinase 163 CK-MB (CK-2) 2.3 CK/CKMB % Calc 1.4 Troponin I < 0.015 0.343 H* Total Protein 7.3 Albumin 3.7 Globulin 3.6 Albumin/Globulin Ratio 1.0 Triglycerides Cholesterol LDL Cholesterol, Calc VLDL Cholesterol, Calc HDL Cholesterol Cholesterol/HDL Ratio Lipase 193 TSH 02/03/19 02/03/19 02/03/19 16:30 18:45 19:47 WBC RBC Hgb Hct MCV MCH MCHC RDW Std Deviation RDW Coeff of Jatinder Plt Count MPV PT 10.7 INR 1.0 APTT 27.6 PTT Ratio 1.0 Sodium Potassium Chloride Carbon Dioxide Anion Gap BUN Creatinine Est Cr Clr Drug Dosing Est GFR ( Amer) Est GFR (Non-Af Amer) BUN/Creatinine Ratio Glucose POC Glucose 154 H 119 H Calcium Magnesium Total Bilirubin AST ALT Alkaline Phosphatase Total Creatine Kinase CK-MB (CK-2) CK/CKMB % Calc Troponin I Total Protein Albumin Globulin Albumin/Globulin Ratio Triglycerides Cholesterol LDL Cholesterol, Calc VLDL Cholesterol, Calc HDL Cholesterol Cholesterol/HDL Ratio Lipase TSH 02/03/19 02/04/19 02/04/19 21:50 01:58 01:58 WBC RBC Hgb Hct MCV MCH MCHC RDW Std Deviation RDW Coeff of Jatinder Plt Count MPV PT INR APTT 53.6 H* PTT Ratio 2.0 Sodium 136 Potassium 3.6 Chloride 106 Carbon Dioxide 24 Anion Gap 6.0 BUN 17 Creatinine 0.97 Est Cr Clr Drug Dosing 85.5 Est GFR ( Amer) 90.7 Est GFR (Non-Af Amer) 78.2 BUN/Creatinine Ratio 17.1 Glucose 145 H POC Glucose Calcium 8.3 L Magnesium 2.0 Total Bilirubin AST ALT Alkaline Phosphatase Total Creatine Kinase CK-MB (CK-2) CK/CKMB % Calc Troponin I 0.304 H* Total Protein Albumin Globulin Albumin/Globulin Ratio Triglycerides 74 Cholesterol 90 LDL Cholesterol, Calc 36 VLDL Cholesterol, Calc 15 HDL Cholesterol 39 Cholesterol/HDL Ratio 2 Lipase TSH 1.870 02/04/19 02/04/19 02/04/19 01:58 07:14 07:42 WBC 8.11 RBC 4.44 L Hgb 13.8 L Hct 38.6 L MCV 86.9 MCH 31.1 MCHC 35.8 RDW Std Deviation 43.2 RDW Coeff of Jatinder 13.5 Plt Count 212 MPV 9.9 PT INR APTT 57.2 H* PTT Ratio 2.1 Sodium Potassium Chloride Carbon Dioxide Anion Gap BUN Creatinine Est Cr Clr Drug Dosing Est GFR ( Amer) Est GFR (Non-Af Amer) BUN/Creatinine Ratio Glucose POC Glucose 146 H Calcium Magnesium Total Bilirubin AST ALT Alkaline Phosphatase Total Creatine Kinase CK-MB (CK-2) CK/CKMB % Calc Troponin I Total Protein Albumin Globulin Albumin/Globulin Ratio Triglycerides Cholesterol LDL Cholesterol, Calc VLDL Cholesterol, Calc HDL Cholesterol Cholesterol/HDL Ratio Lipase TSH Diagnostic Findings Echocardiogram 02/04/2019 Normal left ventricular size and function with mild left hypertrophy EF 60-65% without wall motion abnormality No significant valve disease ECG Additional Comments: 04-FEB-2019 08:45:53 [facility] Normal sinus rhythm Normal ECG When compared with ECG of 03-FEB-2019 10:23, (unconfirmed) No significant change was found
[2019-02-04] MEDS: Heparin Adult STANDARD Wt-Based Dextrose 5% 25,000 units/500 mL IV SCH (12:23)
--- NOTE | 2019-02-04 16:22 | Hospitalist Progress Note ---
Date of Service February 04, 2019 Assessment & Plan (1) Chest pain: Patient is a 73 yr male with H/O CAD, DM II, HTN and other medical problems presents with chest pain and left arm numbness which resolved with NTG. Chest Pain Risk factors:CAD, HTN, DM II, HLD, former smoker Troponin: Mild elevation CTA:No PE, +Emphysema. There is no airspace consolidation or pleural effusion. There is a small hiatal hernia, and circumferential wall thickening is noted in the distal esophagus. Correlate clinically for evidence of esophagitis. ECHO: EF: 60-65%; LV wall motion is normal, Grade I diastolic dysfunction Continue Aspirin, Statin, Metoprolol, JENNIFER On Heparin ggt Appreciate Cardiology Input Planned for diagnostic Cardiac catheterization in AM NPO after midnight (2) CAD (coronary artery disease): H/O Cardiac catheterization in 2007 at [facility], no intervention at that time due to complete occlusion of one coronary with collateral vessel development Last exercise stress test in summer 2017-reportedly negative Obtain records from outside hospital Continue Imdur, aspirin, statin, JENNIFER Management as above Esophagitis: Continue Pepcid for now Plan to discharge on PPI (3) Diabetes mellitus, type II: Update A1C Hold home meds Continue Basal/bolus insulin while in-patient Monitor BSG AC HS COPD: Continue home inhalers No signs of exacerbation (4) HTN (hypertension): Continue lisinopril/hctz Labetalol PRN (5) HLD (hyperlipidemia): Continue statin DVT Px: On Heparin ggt Code status: FULL PCP: [facility] Disposition: Monitor in Tele Subjective Patient is seen and examined at bedside Doing better today Denies chest pain today Also denies any SOB, dizziness, nausea No other complaints Physical Exam Vital Signs (Past 24 Hours): Last Vital Signs Temp 36.6 C 02/04/19 15:06 Pulse 70 02/04/19 15:06 Resp 18 02/04/19 15:06 BP 151/87 H 02/04/19 15:06 Pulse Ox 98 02/04/19 15:06 Physical Exam: Physical Exam: Vitals signs as noted above General Appearance:Moderately built and nourished, no apparent distress Head: normocephalic, Atraumatic Eyes: normal inspection, EOMI Neck: supple, Trachea midline Respiratory/Chest: Decreased breath sounds, CTA Cardiovascular: S1, S2, No murmur Abdomen/GI:Soft, Non tender, Bowel sounds present Extremities/Musculoskelatal:normal inspection, no edema Neurologic/Psych:AAOX3, grossly no focal neurological deficits Skin: normal color, warm Results & Data Laboratory Results Short CBC 02/04/19 Range/Units 01:58 WBC 8.11 (4.8-10.8) K/uL Hgb 13.8 L (14.0-18.0) g/dL Hct 38.6 L (42-52) % Plt Count 212 (130-400) K/uL BMP 02/04/19 01:58 Sodium 136 Potassium 3.6 Chloride 106 Carbon Dioxide 24 BUN 17 Creatinine 0.97 Glucose 145 H Calcium 8.3 L Cardiac Enzymes 02/03/19 02/03/19 Range/Units 16:14 21:50 Troponin I 0.343 H* 0.304 H* (0-0.045) ng/ml
[2019-02-04] MEDS: ATORVASTATIN 40 MG TAB PO SCH (20:47)
[2019-02-04] MEDS: INSULIN GLARGINE SOLOSTAR 100 UNITS/ML 3 ML PEN SC SCH (20:47)
[2019-02-05] MEDS: Heparin Adult STANDARD Wt-Based Dextrose 5% 25,000 units/500 mL IV SCH (04:58)
[2019-02-05 07:24] LABS: Estimated Average Glucose 166 mg/dl; Hemoglobin A1C 7.4 % (4.5-5.6)
[2019-02-05 07:30] LABS: Hematocrit (blood only) 43.6 % (42-52); Hemoglobin 15.8 g/dL (14.0-18.0); Mean Corpuscular Hgb Conc 36.2 g/dL (32-36); Mean Corpuscular Volume 86.7 fL (80-100); Mean Platelet Volume 9.9 fL (7.4-10.4); Platelet Count 226 K/uL (130-400); RDW Coefficient of Variation 13.5 % (11.5-14.5); RDW Standard Deviation 42.7 fL (36.4-46.3); Red Blood Count 5.03 M/uL (4.7-6.1); White Blood Count 7.11 K/uL (4.8-10.8)
[2019-02-05 07:46] LABS: BUN Creatinine Ratio 13.1 (10-20); Calcium 8.8 mg/dl (8.5-10.1); Creatinine Clr Calc Pharmacy 80.2 ml/min; Est GFR (African American) 84.3; Est GFR (Non-African American) 72.7; Potassium 3.9 mmol/L (3.5-5.1)
[2019-02-05] MEDS: INSULIN ASPART 100 UNITS/ML 3 ML PEN SC SCH ×3 (07:48→17:10)
[2019-02-05] MEDS: ASPIRIN 81 MG ECTAB PO SCH (07:50)
[2019-02-05] MEDS: ISOSORBIDE MONO EXTENDED REL 30 MG TABCR PO SCH (07:50)
[2019-02-05 07:51] LABS: Partial Thromboplastin Ratio 2.5
[2019-02-05] MEDS: BUDESONIDE/FORMOTEROL FUMARATE 160/4.5 60 PUFFS/INHALER INH SCH (07:51)
[2019-02-05] MEDS: FAMOTIDINE 20 MG TAB PO SCH (07:51)
[2019-02-05] MEDS: LISINOPRIL/HCTZ 10/12.5MG TAB PO SCH (07:51)
[2019-02-05] MEDS: METOPROLOL TARTRATE 25 MG TAB PO SCH (07:51)
[2019-02-05] MEDS: GABAPENTIN 100 MG CAP PO SCH (07:51)
[2019-02-05 08:07] LABS: Partial Thromboplastin Time 67.2 Seconds (21.0-31.0)
[2019-02-05] MEDS ORDERED: NiCARDipine HCL INJ 2.5 MG/ML 10 ML AMP ONE (11:50)
[2019-02-05] MEDS ORDERED: HEPARIN (PORCINE) 1000 UNIT/ML 10 ML (CATH LAB USE ONLY) ONE (11:50)
[2019-02-05] MEDS ORDERED: fentaNYL citrate 100 MCG/2 ML VIAL ONE (11:50)
[2019-02-05] MEDS ORDERED: MIDAZOLAM HCL 1 MG/ML 2ML VIAL ONE (11:50)
[2019-02-05] MEDS ORDERED: NITROGLYCERIN/D5W 100MCG/ML 20ML SYR ONE (11:51)
[2019-02-05] MEDS ORDERED: ACETAMINOPHEN 325 MG TAB PO PRN (12:59)
[2019-02-05] MEDS ORDERED: SODIUM CHLORIDE 0.9% 1000ML 1,000 ML IV SCH ×2 (13:00)
--- NOTE | 2019-02-05 13:10 | Cardiac Catheterization ---
Cardiac Cath Procedure Full Procedure Date February 05, 2019 Pre-Procedure Diagnosis Pre-Procedure Diagnosis: Non STEMI AUC Score AUC Score: 8 Post-Procedure Diagnosis Post-Procedure Diagnosis: Severe CAD (Single-vessel occlusive, chronic 100% RCA) Procedure(s) Performed Procedure(s) Performed: Coronary Angiography, Left Heart Cath and LV Angiography Radio Operator J Luis Ness MD Railroad Car Letterer(s) Zina Bates Estimated Blood Loss Estimated Blood Loss: <15cc Medication(s) Medication(s): Fentanyl (12.5 mcg IV), Heparin (2500 units IV), Lidocaine 1% (Local infiltration site), Nicardipine (250 mcg intra-arterial after arterial sheath insertion) and Versed (1 mg IV) Summary of Findings Right dominant coronary anatomy Moderate diffuse coronary atherosclerosis with chronic total occlusion mid right coronary artery with distal fill via left to right collateral No high-grade obstruction left coronary system Left main: Long and trifurcating with mild calcification no obstruction Left anterior descending: Type I vessel which gives rise to a large septal branch, a large trifurcating diagonal branch at the end of its proximal third and terminates short of the apex is a type I vessel, large caliber to its point of termination. Left anterior descending has a 40-50% narrowing in its proximal third and serial 30% stenosis in its midportion as well as is in the proximal and midportion of the large diagonal branch Ramus intermedius: This is a large caliber vessel which trifurcates. There is a long 40% narrowing in its proximal portion Left circumflex: Large but nondominant. Gives rise to an atrial branch small first marginal and 3 moderate posterior lateral branches along the AV groove t here is moderate irregularities throughout with mild ectasia. Right coronary artery dominant distribution with severe diffuse disease in 100% total occlusion mid vessel distal vessel reconstitutes via left to right collateral flow demonstrating PDA and 2 posterior ventricular branches LV angiography left ventricle is normal to hyperdynamic EF 65-70% there are no wall motion abnormalities there is no mitral and sufficient Hemodynamics Rest Ao:: 84/54/67 Final Ao: 90/61/74 LV: 97/1 LVEDP 4 Recommendations Recommendations: Medical Therapy and/or Counseling Specimens Specimens: None Radiation Exposure (mGy) 1443 Contrast (mls) 103 Fluids (cc crystalloids) Fluids (cc crystalloids): 50 Anesthesia Start time 1233, end time 1250 Procedural Complication(s) None Disposition PCU ACC Data: Lift Operator Cardiac Status Patient with known history of coronary disease and multiple cardiac risk factors presented with symptoms consistent with angina occurring at rest, elevated troponin CAD Presenation: Non STEMI Anginal Classification: CCS III Heart Failure: No Cardiogenic Shock within 24 Hours: No Cardiac Arrest within 24 Hours: No Imaging Studies Past 6 Months: Yes Stress Studies Past 6 Months: No Standard Exercise Test: No Stress Echocardiogram: No Stress Testing w/SPECT MPI: No Cardiac CTA: No STEMI OR Non-STEMI Symptom Onset Date: 02/03/19 Symptom Onset Time: 08:00 Thrombolytics: No Coronary Anatomy Dominant: Right Left Main (% Stenosis): Normal LAD (% Stenosis): Proximal (40-50 immediately after first septal branch) and Mid (30) D1 (% Stenosis): Proximal (30) and Mid (30) OM1 (% Stenosis): Normal (Small) OM3 (% Stenosis): Mid (Moderate irregularities, 20) L PL1 (% Stenosis): Normal L PL2 (% Stenosis): Normal L PDA (% Stenosis): Normal RCA (% Stenosis): Mid (100%) Ramus (% Stenosis): Proximal (40) Left Ventricular Angiography EF (%): 65-70 Mitral Regurgitation: None Diagnostic Physicians Name: J Luis Ness MD Status: Urgent Closure Device Percutaneous Entry Location: Radial Closure Device: Radial Band Recommendations: Medical Therapy and/or Counseling
[2019-02-05 15:46] VITALS: TEMP 97.7; O2SAT 95
--- NOTE | 2019-02-05 16:57 | Hospitalist Progress Note ---
Date of Service February 05, 2019 Assessment & Plan (1) Chest pain: Patient is a 73 yr male with H/O CAD, DM II, HTN and other medical problems presents with chest pain and left arm numbness which resolved with NTG. Chest Pain Risk factors:CAD, HTN, DM II, HLD, former smoker Troponin: Mild elevation CTA:No PE, +Emphysema. There is no airspace consolidation or pleural effusion. There is a small hiatal hernia, and circumferential wall thickening is noted in the distal esophagus. Correlate clinically for evidence of esophagitis. ECHO: EF: 60-65%; LV wall motion is normal, Grade I diastolic dysfunction Continue Aspirin, Statin, Metoprolol, JENNIFER Heparin ggt discontinued Appreciate Cardiology Input S/P Cardiac catheterization: Findings as below Medical management as per Cardiology-- Started on Amlodipine 2.5 mg daily Discontinue HCTZ Lisinopril Added plavix 75mg daily for 30 days FU with PCP and Cardiology upon discharge Cardiac Cath: Summary of Findings Right dominant coronary anatomy Moderate diffuse coronary atherosclerosis with chronic total occlusion mid right coronary artery with distal fill via left to right collateral No high-grade obstruction left coronary system Left main: Long and trifurcating with mild calcification no obstruction Left anterior descending: Type I vessel which gives rise to a large septal branch, a large trifurcating diagonal branch at the end of its proximal third and terminates short of the apex is a type I vessel, large caliber to its point of termination. Left anterior descending has a 40-50% narrowing in its proximal third and serial 30% stenosis in its midportion as well as is in the proximal and midportion of the large diagonal branch Ramus intermedius: This is a large caliber vessel which trifurcates. There is a long 40% narrowing in its proximal portion Left circumflex: Large but nondominant. Gives rise to an atrial branch small first marginal and 3 moderate posterior lateral branches along the AV groove there is moderate irregularities throughout with mild ectasia. Right coronary artery dominant distribution with severe diffuse disease in 100% total occlusion mid vessel distal vessel reconstitutes via left to right collateral flow demonstrating PDA and 2 posterior ventricular branches LV angiography left ventricle is normal to hyperdynamic EF 65-70% there are no wall motion abnormalities there is no mitral and sufficient Hemodynamics Rest Ao:: 84/54/67 Final Ao: 90/61/74 LV: 97/1 LVEDP 4 Recommendations Recommendations: Medical Therapy and/or Counseling (2) CAD (coronary artery disease): H/O Cardiac catheterization in 2007 at [facility], no intervention at that time due to complete occlusion of one coronary with collateral vessel development Last exercise stress test in summer 2017-reportedly negative Obtain records from outside hospital Continue Imdur, aspirin, statin, JENNIFER Management as above Esophagitis: Continue Pepcid (3) Diabetes mellitus, type II: A1C: 7.4 Hold home meds Continue Basal/bolus insulin while in-patient Monitor BSG AC HS COPD: Continue home inhalers No signs of exacerbation (4) HTN (hypertension): Continue current Labetalol PRN (5) HLD (hyperlipidemia): Continue statin DVT Px: Was on Heparin ggt Code status: FULL PCP: [facility] Disposition: Plan to discharge home today Subjective Patient is seen and examined at bedside Doing well post Cardiac Catheterization today States feeling well today Denies chest pain, SOB, dizziness, nausea No other complaints Physical Exam Vital Signs (Past 24 Hours): Last Vital Signs Temp 36.5 C 02/05/19 15:15 Pulse 76 02/05/19 15:15 Resp 18 02/05/19 15:15 BP 106/74 02/05/19 15:15 Pulse Ox 95 02/05/19 15:15 Physical Exam: Physical Exam: Vitals signs as noted above General Appearance:Moderately built and nourished, no apparent distress Head: normocephalic, Atraumatic Eyes: normal inspection, EOMI Neck: supple, Trachea midline Respiratory/Chest: Decreased breath sounds, CTA Cardiovascular: S1, S2, No murmur Abdomen/GI:Soft, Non tender, Bowel sounds present Extremities/Musculoskelatal:normal inspection, no edema Neurologic/Psych:AAOX3, grossly no focal neurological deficits Skin: normal color, warm Results & Data Laboratory Results Short CBC 02/05/19 Range/Units 07:16 WBC 7.11 (4.8-10.8) K/uL Hgb 15.8 (14.0-18.0) g/dL Hct 43.6 (42-52) % Plt Count 226 (130-400) K/uL BMP 02/05/19 07:16 Sodium 136 Potassium 3.9 Chloride 105 Carbon Dioxide 26 BUN 13 Creatinine 1.03 Glucose 159 H Calcium 8.8
--- NOTE | 2019-02-05 17:12 | Cardiology Progress Note ---
Date of Service February 05, 2019 Assessment & Plan (1) Acute coronary syndrome: Patient presents with symptoms strongly suggestive of acute coronary syndrome in the setting of multiple risk factors and known coronary artery disease. Symptoms resolved with sublingual nitroglycerin. Subsequent troponins elevated Echocardiogram without wall motion abnormality Cardiac catheterization today demonstrates chronic RCA occlusion moderate coronary atherosclerosis left coronary anatomy but no high-grade obstruction. Recommendations: Would treat hypertension. Will add amlodipine 2.5 mg/day if blood pressure gone diminishes would reduce lisinopril dosing. Will discontinue hydrochlorothiazide portion of lisinopril hydrochlorothiazide combination medic Would treat with Plavix 75 mg/day x 30 days Continue all current therapies Follow-up already scheduled with primary care physician at [facility] on 02/19/2019 [facility] cardiology be glad to see him back in follow-up Subjective Patient seen and examined chart medications telemetry reviewed with patient examined prior to diagnostic cardiac catheterization and after. He noted no chest pains or further symptoms overnight last evening. Notes no worsening shortness of breath orthopnea. Blood pressures have been somewhat labile but better controlled this morning Physical Exam Vital Signs (Past 24 Hours): Last Vital Signs Temp 36.5 C 02/05/19 15:15 Pulse 76 02/05/19 15:15 Resp 18 02/05/19 15:15 BP 106/74 02/05/19 15:15 Pulse Ox 95 02/05/19 15:15 Constitutional: WD/WN, vitals as above no acute distress Eyes: PERRL, conjunctivae normal, anicteric sclerae ENMT: external ear and nose normal, oropharynx normal Mouth: + edentulous Mallampati Class: II Neck: + thick neck Respiratory: normal respiratory effort, lungs clear to auscultation Cardiovascular: Rate/Rhythm: regular rate and regular rhythm Heart Sounds: normal S1 and normal S2; no gallop and no murmur Vessels: femoral pulses present and radial pulses present; no JVD Extremities: no edema Right radial access site healing well Gastrointestinal (Abdomen): normal bowel sounds, soft, nontender, no hepatosplenomegaly Musculoskeletal: no cyanosis or clubbing, extremities motor strength 5/5 Neurologic: PERRL, EOMI, accommodation nl, no face palsy, no dysarthria Psychiatric: A+Ox3, euthymic affect Results & Data Laboratory Results Laboratory Results - last 24 hr 04/02/04/19 02/04/19 01:58 20:10 23:43 WBC RBC Hgb Hct MCV MCH MCHC RDW Std Deviation RDW Coeff of Jatinder Plt Count MPV APTT PTT Ratio Sodium Potassium Chloride Carbon Dioxide Anion Gap BUN Creatinine Est Cr Clr Drug Dosing Est GFR ( Amer) Est GFR (Non-Af Amer) BUN/Creatinine Ratio Glucose POC Glucose 118 H 110 H Estimat Average Glucose 166 Hemoglobin A1c 7.4 H Calcium 02/05/19 02/05/19 02/05/19 07:12 07:16 07:16 WBC 7.11 RBC 5.03 Hgb 15.8 Hct 43.6 MCV 86.7 MCH 31.4 MCHC 36.2 H RDW Std Deviation 42.7 RDW Coeff of Jatinder 13.5 Plt Count 226 MPV 9.9 APTT 67.2 H* PTT Ratio 2.5 Sodium Potassium Chloride Carbon Dioxide Anion Gap BUN Creatinine Est Cr Clr Drug Dosing Est GFR ( Amer) Est GFR (Non-Af Amer) BUN/Creatinine Ratio Glucose POC Glucose 151 H Estimat Average Glucose Hemoglobin A1c Calcium 02/05/19 02/05/19 02/05/19 07:16 11:14 16:12 WBC RBC Hgb Hct MCV MCH MCHC RDW Std Deviation RDW Coeff of Jatinder Plt Count MPV APTT PTT Ratio Sodium 136 Potassium 3.9 Chloride 105 Carbon Dioxide 26 Anion Gap 5.0 BUN 13 Creatinine 1.03 Est Cr Clr Drug Dosing 80.2 Est GFR ( Amer) 84.3 Est GFR (Non-Af Amer) 72.7 BUN/Creatinine Ratio 13.1 Glucose 159 H POC Glucose 134 H 136 H Estimat Average Glucose Hemoglobin A1c Calcium 8.8
--- NOTE | 2019-02-05 17:28 | Discharge Summary ---
Date of Service February 05, 2019 Admission HPI Per Admitting Provider This is a 73yo M with a PMH of Coronary Artery Disease, DM II, HTN and other medical problems listed below who presents to the ED after developing chest pain this morning around 8 AM. Patient was driving his grandson to [employer] when he developed sudden onset left-sided chest pain and pressure with radiation to left arm. Also associated with diaphoresis, lightheadedness and shortness of breath. Came to the ED for further evaluation. Chest pain subsided after nitroglycerin and patient has remained asymptomatic. Receives majority of care through [facility] and underwent a cardiac catheterization in 2007 but did not have any stents placed. Reports undergoing an exercise stress test in the summer 2017 that was normal. Is not sure dosing on any of his medications, but daughter is planning to return home to bring in medication list this evening. States that he is compliant with all meds, including insulin for diabetes. Denies personal history of heart attack but has experienced similar chest pain 6 years ago. Significant family history of CAD, including father and brother experiencing MIs in their early 60s. Denies fever, chills, lightheadedness, headache, palpitations, shortness of breath, wheezing, nausea, vomiting, abdominal pain, diarrhea or constipation. No lower extremity swelling. Admission Exam Per Admitting Provider General Appearance: WD/WN, no apparent distress, resting comfortably Head: normocephalic, atraumatic Eyes: normal inspection, PERRL, EOMI ENT: hearing grossly normal, pharynx normal (moist mucous membranes) Neck: supple, no JVD, no adenopathy Respiratory/Chest: No chest tenderness on wall. lungs clear to auscultation. No wheezes, rales or rhonci. No respiratory distress or accessory muscle use Cardiovascular: Regular rate, rhythm, no murmur, normal peripheral pulses Abdomen/GI: Normal bowel sounds, soft, non-tender to palpation Extremities/Musculoskelatal: normal inspection, no calf tenderness, normal capillary refill, no pedal edema Neurologic/Psych: alert, normal mood/affect, oriented x 3 Skin: normal color, warm/dry Principal Diagnosis Discharge Information Discharge Diagnosis Chest Pain, Coronary Artery disease Esophagitis Discharge Goals Decrease discomfort,Improve disease control, Improve function Discharge Activity Limitations Resume your previous activity Discharge Data Allergies Allergy/AdvReac Type Severity Reaction Status Date / Time No Known Allergies Allergy Unverified 02/03/19 12:22 Consultations 02/03/19 12:23 ED Decision to Admit Stat 02/03/19 17:04 Consult Cardiology Routine Procedures Performed Operation Date: 02/05/19 11:00 Actual Procedures p Cath, Left with Cors and Vent - J Luis Ness MD s Cineradiography w/Routine Exam - J Luis Ness MD CTA: 1. There is no evidence of pulmonary embolus in the main, lobar, or segmental pulmonary arteries. 2. Emphysema. 3. There is no airspace consolidation or pleural effusion. 4. There is a small hiatal hernia, and circumferential wall thickening is noted in the distal esophagus. Correlate clinically for evidence of esophagitis. This could be further assessed by endoscopy if clinically warranted. Cardiac Cath: Summary of Findings Right dominant coronary anatomy Moderate diffuse coronary atherosclerosis with chronic total occlusion mid right coronary artery with distal fill via left to right collateral No high-grade obstruction left coronary system Left main: Long and trifurcating with mild calcification no obstruction Left anterior descending: Type I vessel which gives rise to a large septal branch, a large trifurcating diagonal branch at the end of its proximal third and terminates short of the apex is a type I vessel, large caliber to its point of termination. Left anterior descending has a 40-50% narrowing in its proximal third and serial 30% stenosis in its midportion as well as is in the proximal and midportion of the large diagonal branch Ramus intermedius: This is a large caliber vessel which trifurcates. There is a long 40% narrowing in its proximal portion Left circumflex: Large but nondominant. Gives rise to an atrial branch small first marginal and 3 moderate posterior lateral branches along the AV groove there is moderate irregularities throughout with mild ectasia. Right coronary artery dominant distribution with severe diffuse disease in 100% total occlusion mid vessel distal vessel reconstitutes via left to right collateral flow demonstrating PDA and 2 posterior ventricular branches LV angiography left ventricle is normal to hyperdynamic EF 65-70% there are no wall motion abnormalities there is no mitral and sufficient Hemodynamics Rest Ao:: 84/54/67 Final Ao: 90/61/74 LV: 97/1 LVEDP 4 Recommendations Recommendations: Medical Therapy and/or Counseling Ordered Studies 02/03/19 10:26 CT angio chest PE protocol Stat 02/05/19 06:58 CL Cath Imgs for PACS use only Routine Hospital Course (1) Chest pain: Patient is a 73 yr male with H/O CAD, DM II, HTN and other medical problems presents with chest pain and left arm numbness which resolved with NTG. Chest Pain Risk factors:CAD, HTN, DM II, HLD, former smoker Troponin: Mild elevation CTA:No PE, +Emphysema. There is no airspace consolidation or pleural effusion. There is a small hiatal hernia, and circumferential wall thickening is noted in the distal esophagus. Correlate clinically for evidence of esophagitis. ECHO: EF: 60-65%; LV wall motion is normal, Grade I diastolic dysfunction Continue Aspirin, Statin, Metoprolol, JENNIFER Heparin ggt discontinued Appreciate Cardiology Input S/P Cardiac catheterization: Findings as below Medical management as per Cardiology-- Started on Amlodipine 2.5 mg daily Discontinue HCTZ Lisinopril Added plavix 75mg daily for 30 days FU with PCP and Cardiology upon discharge Cardiac Cath: Summary of Findings Right dominant coronary anatomy Moderate diffuse coronary atherosclerosis with chronic total occlusion mid right coronary artery with distal fill via left to right collateral No high-grade obstruction left coronary system Left main: Long and trifurcating with mild calcification no obstruction Left anterior descending: Type I vessel which gives rise to a large septal branch, a large trifurcating diagonal branch at the end of its proximal third and terminates short of the apex is a type I vessel, large caliber to its point of termination. Left anterior descending has a 40-50% narrowing in its proximal third and serial 30% stenosis in its midportion as well as is in the proximal and midportion of the large diagonal branch Ramus intermedius: This is a large caliber vessel which trifurcates. There is a long 40% narrowing in its proximal portion Left circumflex: Large but nondominant. Gives rise to an atrial branch small fi rst marginal and 3 moderate posterior lateral branches along the AV groove there is moderate irregularities throughout with mild ectasia. Right coronary artery dominant distribution with severe diffuse disease in 100% total occlusion mid vessel distal vessel reconstitutes via left to right collateral flow demonstrating PDA and 2 posterior ventricular branches LV angiography left ventricle is normal to hyperdynamic EF 65-70% there are no wall motion abnormalities there is no mitral and sufficient Hemodynamics Rest Ao:: 84/54/67 Final Ao: 90/61/74 LV: 97/1 LVEDP 4 Recommendations Recommendations: Medical Therapy and/or Counseling (2) CAD (coronary artery disease): H/O Cardiac catheterization in 2007 at [facility], no intervention at that time due to complete occlusion of one coronary with collateral vessel development Last exercise stress test in summer 2017-reportedly negative Obtain records from outside hospital Continue Imdur, aspirin, statin, JENNIFER Management as above Esophagitis: Continue Pepcid (3) Diabetes mellitus, type II: A1C: 7.4 Hold home meds Continue Basal/bolus insulin while in-patient Monitor BSG AC HS COPD: Continue home inhalers No signs of exacerbation (4) HTN (hypertension): Continue current Labetalol PRN (5) HLD (hyperlipidemia): Continue statin DVT Px: Was on Heparin ggt Code status: FULL PCP: [facility] Disposition: Plan to discharge home today Total Time Total Time Spent Total Time Spent (In Minutes): 34 minutes Discharge Plan Discharge Items Patient Disposition: Home - Self-Care Reason For Visit: CHEST PAIN Discharge Diagnosis: Chest Pain, Coronary Artery disease Esophagitis Discharge Goals: Decrease discomfort, Improve disease control and Improve function Activity: Resume your previous activity Exercise/Sports: Gradually increase as tolerated Non-emergency contact: Primary Care Provider and Laryngologist Call non-emergency contact if: you have any medication questions, your symptoms worsen, your pain is not controlled, your pain is worsening, your pain is unusual for you, your pain is concerning for you and you have a fever Follow-up/Referrals: PCP,NO [Primary Care Provider] - Diet: Carb Consistent or DM2 and Heart Healthy Addtl Provider Instructions: Follow up with your Primary Care Physician at [facility] in 1 week as advised Follow up with your Laryngologist in 2 weeks as advised Seek immediate medical attention if your symptoms reoccur or worsen Take Plavix 75mg for 30 days--further recommendations as per your Laryngologist ACTIVITY RECOMMENDATIONS: Excess manipulation of the wrist should be avoided for the next 24-48 hours. * No lifting over 2 pounds (approximately a 1/2 gallon of milk) with the utilized arm for 24 hours. * No strenuous activity such as bowling or tennis for 3 days. * Keep the site of the procedure covered with a bandage for 24 hours. *You may shower the day after the procedure. Do not take a tub bath or submerge the puncture site in water for the next 3 days. *Do not operate any motorized equipment for 3 days. SPECIAL CARE INSTRUCTIONS: The site may be slightly bruised and sore following your procedure. Should any of the following occur, contact the Dr. who performed your procedure. 1. Redness/inflammation, swelling, chills, or fever, or colored drainage at procedure site within 3-7 days after your procedure. 2. Coldness, discoloration, ongoing numbness, severe pain, or swelling. Expect mild tingling of hand and tenderness at the puncture site for up to three days. If this persists beyond three days, or other symptoms develop, notify the Dr. who performed your procedure. BLEEDING: If the procedure site on your wrist begins to bleed, do not panic 1. Place 1 or 2 fingers firmly just slightly above the insertion site to stop the bleeding. You may be able to feel your pulse as you hold pressure. 2. Lift your finger after 5 minutes to see if the bleeding has stopped. 3. Once the bleeding has stopped, gently wipe the wrist area clean with a bandage. * If the bleeding from your wrist does not stop after 10 minutes, or if there is a large amount of bleeding or spurting, call 911 (do not drive yourself to the hospital). SKIN IRRITATION: * You may experience some redness and/or swelling in the area where radiation was administered. If any skin irritation occurs, please contact your family physician. FOLLOW UP VISIT: Keep any scheduled doctor appointments. Home Care: * Take your medications exactly as directed. Don't skip doses. * Remember that recovery after a heart attack takes time. Plan to rest for at lease 4-8 weeks while you recover. Then return to normal activity when your doctor says it's okay. * Ask your doctor about joining a heart rehabilitation program. * Tell your doctor if you are feeling depressed. Feelings of sadness are common after a heart attack, but it is important that you speak to someone if you are feeling overwhelmed by these feelings. * If you are having chest pain, call 911 for an ambulance. Do NOT drive yourself to the hospital. * Ask your family members to learn CPR. * Learn to take your own blood pressure and pulse. Keep a record of your results. Ask your doctor when you should seek emergency medical attention. He or she will tell you which blood pressure reading is dangerous. Lifestyle Changes: * Maintain a healthy weight. Get help to lose any extra pounds. * Cut back on salt. * Limit canned, dried, packaged, and fast foods. * Don't add salt to your food. * Season foods with herbs instead of salt when you cook. * Break the smoking habit. Enroll in a stop-smoking program to improve your chances of success. * Limit fatty foods. * Ask your doctor about having your lipid levels checked regularly. * Build up your activity according to your doctor's recommendation. * Ask your doctor when it's okay to resume sexual activity. * Tell your doctor about any erectile dysfunction (ED) medication you are taking. Some ED medications are not safe if you take certain heart medications. * Try to manage stress. Follow Up: It is important for you to keep your follow up appointments with your medical provider. Prescriptions: New clopidogrel 75 mg Tablet 75 mg PO QAM 30 Days Qty: 30 RF: 0 amlodipine [Norvasc] 5 mg Tablet 2.5 mg PO QAM 30 Days Qty: 15 RF: 1 famotidine 20 mg Tablet 20 mg PO BID 30 Days Qty: 60 RF: 1 lisinopril [Zestril] 10 mg Tablet 10 mg PO QAM 30 Days Qty: 30 RF: 1 Continued atorvastatin 80 mg Tablet 80 mg PO HS RF: 0 insulin glargine 100 unit/mL Solution 30 units subcut HS RF: 0 isosorbide mononitrate 30 mg Tablet Extended Release 24 Hr PO DAILY RF: 0 gabapentin 100 mg Capsule 100 mg PO BID RF: 0 albuterol sulfate 90 mcg/actuation Hfa Aerosol Inhaler 2 puff INHALATION QID PRN (Reason: shortness of breath) RF: 0 metformin 750 mg Tablet Extended Release 24 Hr 2 tabs PO PM RF: 0 metoprolol tartrate 25 mg Tablet 25 mg PO DAILY RF: 0 budesonide-formoterol 160-4.5 mcg/actuation Hfa Aerosol Inhaler 2 puff INHALATION BID RF: 0 aspirin 81 mg Tablet,Chewable 81 mg PO DAILY RF: 0 Discontinued lisinopril-hydrochlorothiazide 10-12.5 mg Tablet 1 tab PO DAILY RF: 0 Stand-Alone Forms: Call Back Authorization, [facility] Discharge Orders: Discharge Order (Routine); Ordered 02/05/19 Ordered By: Ernie Tan Admission Data Admit Date/Time: 02/03/19 12:55 Attending Provider: Ernie Tan Admit Provider: Ernie Tan Primary Care Provider: PCP,NO Other Providers: J Luis Ness ; Ernie Tan Service: Telemetry Other Interventions: Discharge Summary Assessment (RN) Last Done: 02/05/19 17:43 Pending Studies at Discharge: No DC Date/Time DO NOT enter until pt leaves facility: 02/05/19 18:15
[2019-02-05] MEDS ORDERED: CLOPIDOGREL BISULFATE 300 MG TAB PO STA (17:38)
[2019-02-05 17:47] VITALS: BP 151/87; PULSE 72
[2019-02-06] MEDS ORDERED: CLOPIDOGREL BISULFATE 75 MG TAB PO SCH (09:00)
[2019-02-06] MEDS ORDERED: LISINOPRIL 10 MG TAB PO SCH (09:00)
[2019-02-06] MEDS ORDERED: AMLODIPINE BESYLATE 5 MG TAB PO SCH (09:00)
== END 2019-02-05 18:15 | disposition home or self-care (01) ==
LOC: ED 10:12 → 2S 10:12

== ENCOUNTER 2022-07-06 10:39 | Inpatient (IN) ==
--- NOTE | 2022-07-06 11:41 | Emergency Department Note ---
Impression & Plan Breathlessness, CHF (congestive heart failure), Elevated troponin I level, Falls, Mass of right lung, Elevated LFTs ED Provider Note Provider: Holger Cavazos MD DATE OF SERVICE: 07/06/2022 CHIEF COMPLAINT: Chest pain, swelling HISTORY OF PRESENT ILLNESS: Patient is a 77-year-old gentleman history of CAD, COPD former smoker, type 2 diabetes, hypertension currently on Plavix presenting here today reporting over the last several days he has had several falls to the ground. Denies striking his head. Reporting bruising on his abdomen as well as some swelling of his legs. Patient states he is some pain with breathing and has been having some ongoing issues with back pain over the past several months. Has been undergoing outpatient work-up as they found possible lytic lesions. States he was recently diagnosed with prostate cancer and just had a PET scan this past Tuesday. [facility], [facility] as [facility] cardiology. Chest pain with breathing and mild SOB. No history of leg swelling REVIEW OF SYSTEMS: A total of 10 review of systems was obtained and negative except as stated above in the HPI. PAST MEDICAL HISTORY: As noted above MEDICATIONS: Reviewed home medications SOCIAL HISTORY: Former smoker, lives alone PHYSICAL EXAM: GENERAL: alert and oriented in no acute distress on stretcher Head: normocephalic and atraumatic EYES: No injection, discharge or icterus. NECK: Trachea midline. Supple. ENT: Mucous membranes pink and moist. LUNGS: Airway patent. No retractions. Breath sounds diminished in the lower lung plaza HEART: Regular rate and rhythm. No chest wall tenderness ABDOMEN: Soft and non-tender, without guarding or rebound. BACK: Minimal bilateral flank tenderness however flank and lateral abdominal wall contusions noted SKIN: Acyanotic, warm, dry EXTREMITIES: Bilateral 2+ swelling to mid thigh without tenderns; symetirc in nature. NEUROLOGICAL: No focal deficits. No aphasia. No facial droop or slurred speech. Normal strength and tone in the extremities. Sensation to gross touch normal. EK bpm sinus rhythm with PAC. No PVC. No acute ST segment elevation with a QTC of 462 and a left axis. CONTINUOUS CARDIAC MONITORING: was ordered and showed a heart rate of 80s-100s bpm in NSR, sinus tachycardia GCS 15. Patient's laboratory studies and imaging reviewed. Differential includes traumatic, Infection, dehydration, metabolic abnormality, hypo/hyperglycemia, electrolyte disturbance, anemia, hypoxia, cardiac sources, intracerebral event, toxicologic, neurologic, as well as other pathologies. IMPRESSION/MEDICAL DECISION MAKING: Patient presents with some chest pain with breathing and certain movements haley oing back issues this recent diagnosis of prostate cancer on aspirin and Plavix. Has had several falls likely 1H the last several days. Lives at home alone. Denies striking his head. Some bruising on the bilateral abdominal wall with minimal tenderness here. Swelling of the lower legs is noted. Reviewing records evidence of recent diagnosis of prostate cancer and the PET scan from Tuesday showed evidence of likely lung malignancy with lytic lesions and pathological spinal fractures. Not having acute neurological deficits at this point. Did repeat CT imaging at this time given the patient's several falls since the PET scan 4 days ago. EKG and basic labs obtained although I have a lower suspicion for acute ACS at this time. May have some component of heart failure versus other oncological process causing his leg swelling. Troponin elevated today at 530 and LFTs in low 100s. Renal function looks stable. No anemia and mild WBC count increased of 13.20. Negative COVID. CT reports from radiology of the head and cervical spine without acute traumatic injury although lytic lesions in the cervical spine are noted. CT of the chest with evidence of possible pulmonary malignancy and lymphadenopathy. Thoracic spine metastatic findings are noted as well as hepatic findings. No PE. Better with some mild anemia. Creatinine 1.77 unsure of baseline but states she has been referred to a kidney doctor to see so question if she has some underlying baseline CKD. No significant troponin elevation or LFT abnormality noted likely.Given some Lasix here to help with diuresis. Given his multiple comorbidities and elevated troponin of the significance feel that further observation is indicated. Hospitalist contacted. DIAGNOSIS: Shortness of breath, CHF, elevated troponin, elevated LFTs DISPOSITION: Hospitalist will evaluate Patient was agreeable with this plan. Past Med/Surg History Medical History CAD (coronary artery disease) Chronic obstructive pulmonary disease WELL CONTROLLED PER PATIENT Diabetes mellitus, type II IDDM Fusion of spine 1992 THORACIC AREA GERD (gastroesophageal reflux disease) UNDER CONTROL HLD (hyperlipidemia) HTN (hypertension) Kidney stones PASSED ON OWN Medical marijuana use Myocardial Infarction JANUARY 2019 [facility]LL[facility] (obstructive sleep apnea) Osteoarthritis Sleep apnea CPAP Surgical History H/O removal of cyst FOREHEAD, THIGH, HIP> ALL BENIGN History of cholecystectomy History of colonoscopy History of esophagogastroduodenoscopy (EGD) History of left cataract surgery History of tonsillectomy History of tooth extraction Hx of angioplasty NO STENTS JANUARY 2019 FOLLOWING [place]> [facility] Hx of surgical procedure REMOVAL OF METAL FROM LEFT LEG OVER 10 YRS AGO Family History Sister Breast cancer Grandfather (Paternal) Myocardial infarction Uncle Myocardial infarction Father Myocardial infarction Brother Myocardial infarction Family/Other Myocardial infarction cousin Other Coronary heart disease Denies family history of Ovarian cancer Prostate cancer Colorectal cancer Social History Smoking Status: Former smoker Second Hand Exposure: No; Hx Alcohol Use: No Hx Substance Use: Yes Substance Use Type Other:: MEDICAL MARIJUANA CARD FOR PAIN> 3-4X PER DAY Preferred Language: Serbian Communication Ability: Effective Bracelet Former Required: No Beliefs That Will Affect Care: None Current Living Situation: Alone current occupational status: retired Feels Safe at Home: Yes caffeine: Yes (coffee) Dental Care, Regularly: No Physical Activity Frequency: 3-4 Times per Week Physical Activity Frequency Comment: walking the dog Seatbelt Use: always Sunscreen Use: No Assistive Devices: Denture - Upper, Denture - Lower and Glasses Allergies Allergies Allergy/AdvReac Type Severity Reaction Status Date / Time losartan Allergy Mild face Verified 07/06/22 16:32 swelling Home Meds Home Medications Medication Instructions Recorded Confirmed albuterol sulfate 90 mcg/actuation 2 puff inhalation QID PRN 02/03/19 07/06/22 aerosol inhaler shortness of breath aspirin 81 mg chewable tablet 81 mg PO QAM 02/03/19 07/06/22 atorvastatin 80 mg tablet 80 mg PO HS 02/03/19 07/06/22 budesonide-formoterol HFA 160 2 puff inhalation BID 02/03/19 07/06/22 mcg-4.5 mcg/actuation aerosol inhaler isosorbide mononitrate 30 mg 60 mg PO QAM 02/03/19 07/06/22 tablet,extended release 24 hr metoprolol tartrate 25 mg tablet 25 mg PO BID 02/03/19 07/06/22 amlodipine 2.5 mg tablet 2.5 mg PO QAM 12/06/19 07/06/22 clopidogrel 75 mg tablet 75 mg PO QAM 12/06/19 07/06/22 famotidine 20 mg tablet 20 mg PO QAM 12/06/19 07/06/22 Medical Marijuana 1 hospice aide inhalation [id number] 06/04/20 07/06/22 cyanocobalamin (vitamin B-12) 1,000 mcg PO QAM 06/04/20 07/06/22 1,000 mcg tablet empagliflozin 10 mg tablet 10 mg PO QAM 06/04/20 07/06/22 glipizide 10 mg tablet 10 mg PO BID 06/04/20 07/06/22 insulin glargine 100 unit/mL 30 unit subcut HS 06/16/20 07/06/22 subcutaneous solution Previous Rx's Medication Instructions Recorded metformin 1,000 mg tablet 1,000 mg PO BID #60 tabs 06/16/20 acetaminophen 300 mg-codeine 30 mg 1 tab PO Q12H PRN pain #9 tabs 04/27/22 tablet oxycodone 10 mg tablet 10 mg PO TID PRN pain #25 tabs 06/30/22 Results & Data (ED) Vital Signs Vital Signs - 24 hr 07/06/22 10:39 07/06/22 11:33 07/06/22 11:04 Temperature 36.1 C L Temperature Source Temporal Artery Scan Pulse Rate 98 H 100 H Pulse Rate [Apical] Pulse Rate from SpO2 Sensor 98 H Respiratory Rate 16 18 Blood Pressure 181/98 H Blood Pressure [Right Arm] Blood Pressure Mean 125 Blood Pressure Mean [Right Arm] Pulse Oximetry 97 97 94 Oxygen Delivery Method Room Air Oxygen Flow Rate Sepsis Recent Fever Within 48 Hours No Sepsis New/Unexplained Change in Mental Status No Sepsis Action Taken by Nursing No Action Required 07/06/22 11:10 07/06/22 11:20 07/06/22 11:30 Temperature Temperature Source Pulse Rate 95 H 102 H 102 H Pulse Rate [Apical] Pulse Rate from SpO2 Sensor 95 H 102 H 101 H Respiratory Rate 24 22 21 Blood Pressure Blood Pressure [Right Arm] Blood Pressure Mean Blood Pressure Mean [Right Arm] Pulse Oximetry 97 96 97 Oxygen Delivery Method Oxygen Flow Rate Sepsis Recent Fever Within 48 Hours Sepsis New/Unexplained Change in Mental Status Sepsis Action Taken by Nursing 07/06/22 12:51 07/06/22 12:51 07/06/22 12:39 Temperature Temperature Source Pulse Rate Pulse Rate [Apical] Pulse Rate from SpO2 Sensor Respiratory Rate 18 Blood Pressure Blood Pressure [Right Arm] Blood Pressure Mean Blood Pressure Mean [Right Arm] Pulse Oximetry 97 97 Oxygen Delivery Method Room Air Room Air Oxygen Flow Rate 0 Sepsis Recent Fever Within 48 Hours Sepsis New/Unexplained Change in Mental Status Sepsis Action Taken by Nursing 07/06/22 14:00 07/06/22 16:00 Temperature Temperature Source Pulse Rate Pulse Rate [Apical] 107 H Pulse Rate from SpO2 Sensor Respiratory Rate 21 18 Blood Pressure Blood Pressure [Right Arm] 158/95 H 158/95 H Blood Pressure Mean Blood Pressure Mean [Right Arm] 116 116 Pulse Oximetry 96 98 Oxygen Delivery Method Room Air Oxygen Flow Rate Sepsis Recent Fever Within 48 Hours Sepsis New/Unexplained Change in Mental Status Sepsis Action Taken by Nursing Laboratory Data Result diagrams: 07/06/22 11:22 07/06/22 11: Lab Results 07/06/22 07/06/22 07/06/22 Range/Units 11:22 11:22 11:22 WBC 13.20 H (4.8-10.8) K/ul RBC 5.50 (4.63-6.08) M/uL Hgb 16.8 (14.0-18.0) g/dl Hct 49.8 (40.1-51.0) % MCV 90.5 (80.0-100.0) fL MCH 30.5 (25.0-34.0) pg MCHC 33.7 (32.0-36.0) g/dL RDW Std Deviation 54.4 H (36.4-46.3) fL RDW Coeff of Jatinder 17.2 H (11.5-14.5) % Plt Count 213 (130-400) K/uL MPV 9.8 (9.4-12.4) fL Immature Gran % (Auto) 1.7 % Neut % (Auto) 84.9 % Lymph % (Auto) 4.9 % Pen[place] % (Auto) 8.2 % Eos % (Auto) 0.0 % Baso % (Auto) 0.3 % Neut # (Auto) 11.21 H (1.4-6.5) K/uL Lymph # (Auto) 0.65 L (1.2-3.4) K/uL Pen[place] # (Auto) 1.08 H (0.24-0.82) K/uL Eos # (Auto) 0.00 (0-0.50) K/uL Baso # (Auto) 0.04 (0-0.2) K/uL Immature Gran # (Auto) 0.22 H (0.00-0.02) K/uL PT 11.4 (9.0-12.0) Seconds INR 1.1 (0.9-1.1) Sodium 141 (136-145) mmol/L Potassium 3.4 L (3.5-5.1) mmol/L Chloride 102 (98-107) mmol/L Carbon Dioxide 25 (21-32) mmol/L Anion Gap 14 H (3-11) BUN 13 (6-23) mg/dl Creatinine 0.65 (0.6-1.4) mg/dl Est Cr Clr Drug Dosing 111.0 ml/min Est GFR ( Amer) 110.3 ml/min Est GFR (Non-Af Amer) 95.2 ml/min BUN/Creatinine Ratio 20.0 (10-20) Glucose 179 H (70-99(Fasting)) mg/dl Calcium 9.3 (8.5-10.1) mg/dl Total Bilirubin 2.3 H (0.2-1.0) mg/dl AST 155 H (13-39) U/L ALT 289 H (7-52) U/L Alkaline Phosphatase 287 H (34-104) U/L Total Creatine Kinase (30-223) U/L Troponin I High Sens 530.3 H* (0-20) pg/ml B-Natriuretic Peptide (0-100) pg/ml Total Protein 6.5 (6.0-8.3) gm/dl Albumin 3.7 (3.4-5.0) gm/dl Globulin 2.8 (2.5-4.0) gm/dl Albumin/Globulin Ratio 1.3 (0.9-2) Lipase 100 H (11-82) U/L SARS-CoV-2, RNA, NAAT (NEGATIVE) 07/06/22 07/06/22 07/06/22 Range/Units 11:22 11:46 12:13 WBC (4.8-10.8) K/ul RBC (4.63-6.08) M/uL Hgb (14.0-18.0) g/dl Hct (40.1-51.0) % MCV (80.0-100.0) fL MCH (25.0-34.0) pg MCHC (32.0-36.0) g/dL RDW Std Deviation (36.4-46.3) fL RDW Coeff of Jatinder (11.5-14.5) % Plt Count (130-400) K/uL MPV (9.4-12.4) fL Immature Gran % (Auto) % Neut % (Auto) % Lymph % (Auto) % Penning[place] % (Auto) % Eos % (Auto) % Baso % (Auto) % Neut # (Auto) (1.4-6.5) K/uL Lymph # (Auto) (1.2-3.4) K/uL Pen[place] # (Auto) (0.24-0.82) K/uL Eos # (Auto) (0-0.50) K/uL Baso # (Auto) (0-0.2) K/uL Immature Gran # (Auto) (0.00-0.02) K/uL PT (9.0-12.0) Seconds INR (0.9-1.1) Sodium (136-145) mmol/L Potassium (3.5-5.1) mmol/L Chloride (98-107) mmol/L Carbon Dioxide (21-32) mmol/L Anion Gap (3-11) BUN (6-23) mg/dl Creatinine (0.6-1.4) mg/dl Est Cr Clr Drug Dosing ml/min Est GFR ( Amer) ml/min Est GFR (Non-Af Amer) ml/min BUN/Creatinine Ratio (10-20) Glucose (70-99(Fasting)) mg/dl Calcium (8.5-10.1) mg/dl Total Bilirubin (0.2-1.0) mg/dl AST (13-39) U/L ALT (7-52) U/L Alkaline Phosphatase (34-104) U/L Total Creatine Kinase 213 (30-223) U/L Troponin I High Sens (0-20) pg/ml B-Natriuretic Peptide 218 H (0-100) pg/ml Total Protein (6.0-8.3) gm/dl Albumin (3.4-5.0) gm/dl Globulin (2.5-4.0) gm/dl Albumin/Globulin Ratio (0.9-2) Lipase (11-82) U/L SARS-CoV-2, RNA, NAAT NEGATIVE (NEGATIVE) Administered Medications Discontinued Medications Furosemide (Furosemide Inj 20 Mg/2 Ml Vial) 20 mg IV ONE ONE Stop: 07/06/22 14:02 Last Admin: 07/06/22 14:53 Dose: 20 mg Documented By: KT Imaging Data Radiologist's Impression: Chest X-Ray 07/06/22 10:50 XR chest 1V portable CLINICAL HISTORY: Chest Pain TECHNIQUE: Single frontal radiograph of the chest was obtained. Comparison: Comparison is made to chest radiograph 02/03/2019 FINDINGS: No lines and tubes are seen. The cardiomediastinal silhouette is normal. Bilateral perihilar fullness is again seen. No evidence of pleural effusion or pneumothorax. IMPRESSION: Stable perihilar fullness which may represent mild pulmonary edema versus lymphadenopathy. Attention on CTA chest which has already been ordered is recommended. ACT 112: Negative or not required by law. Electronically signed by: Marciano Valdivia M.D. 07/06/2022 11:43 AM Abdomen/Pelvis CT 07/06/22 11:[address] WITH IV CONTRAST HISTORY: Acute abdominal pain falls, leg swelling, abdominal contusions TECHNIQUE: Multiaxial CT images of the abdomen and pelvis were performed following the IV administration of 115 cc of Optiray, A dose lowering technique was utilized adhering to the principles of ALARA. COMPARISON STUDY: PET CT 06/30/2022 FINDINGS: Small pericardial effusion. 10 mm irregular nodule of the basal right lower lobe, image 7 series 12. Subsegmental bibasilar atelectasis. No pneumatosis or pneumoperitoneum. Unremarkable spleen, and pancreas. Thickening of the adrenal glands is similar to 04/27/2022. Cholecystectomy. Scattered hypodense lesions of the liver suggestive of metastasis measure up to 2.7 cm and the right hepatic lobe. Marginal nodularity of the liver has progressed from the prior study. Trace perihepatic ascites. Mild nonspecific bilateral perinephric stranding. 2.1 cm cyst within the inferior pole right kidney. 9 mm indeterminate nodule in the right perinephric space is unchanged from the most recent comparison. Prostamegaly. Unremarkable urinary bladder. Atherosclerosis of the aorta. Mild periportal lymphadenopathy. No bowel obstruction or bowel wall thickening. Colonic diverticulosis. Mild colonic fecal retention. Normal appendix. 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 Epidural and neural foraminal extension of disease as previously discussed is also stable. Mild pathologic fractures of the lower thoracic spine appear unchanged. IMPRESSION: 1. Stable exam from the PET CT obtained 06/30/2022 2. Multifocal hepatic metastasis with marginal nodularity of the liver suggestive of cirrhosis versus pseudocirrhosis with trace perihepatic ascites. 3. Mild periportal lymphadenopathy. 4. Multifocal osteolytic skeletal metastasis with pathologic fractures of the ribs and lower thoracic spine appear unchanged. 5. No bowel obstruction or bowel wall thickening. 6. Additional findings as above. ACT 112: Negative or not required by law. The above report was generated using voice recognition software. It may contain grammatical, syntax or spelling errors. Electronically signed by: Ortiz Blevins M.D. 07/06/2022 1:[address] 07/06/22 11:15 CT OF THE CERVICAL SPINE WITHOUT CONTRAST CLINICAL HISTORY: fall COMPARISON STUDY: PET/CT June 30, 2022. TECHNIQUE: Helical axial images of the cervical spine were obtained without IV contrast. Sagittal and coronal reconstructions were viewed. Automated exposure control was utilized for the study. A dose lowering technique was utilized adhering to the principles of ALARA. FINDINGS: Trace fluid within the right mastoid air cells. Straightening of the cervical lordosis is noted. No acute cervical spine fracture is noted. Moderate multilevel degenerative disc disease and facet arthrosis is present. There is no prevertebral edema. Several lytic skeletal lesions are noted. These include a 1.2 cm lytic lesion within the left articulating facet of C6. There is also a 1.5 cm lytic lesion within the left articulating facet of C7. IMPRESSION: 1. No acute cervical spine fracture or subluxation. 2. Lytic lesions within the left articular facets of C6 and C7 suggestive of metastatic disease. Multiple myeloma is also within the differential. 3. Moderate multilevel degenerative disc disease and facet arthrosis within the cervical spine. ACT 112: Negative or not required by law. Electronically signed by: Scott Lloyd M.D. 07/06/2022 1:27 PM Chest CTA 07/06/22 11:15 CHEST CTA for PULMONARY ARTERIES CT DOSE: HISTORY: Fall. Atypical chest pain. Leg swelling. TECHNIQUE: Multiaxial CT images of the chest were performed following the int ravenous administration of contrast to evaluate the pulmonary arteries. Maximal intensity projection images were also obtained. A dose lowering technique was utilized adhering to the principles of ALARA. COMPARISON STUDY: Chest CTA 02/03/2019. PET CT 06/30/2022. FINDINGS: No evidence for aneurysm or dissection. Suboptimal opacification of the pulmonary arteries. However, no definite filling defects within the pulmonary arteries to suggest a pulmonary embolus. There is mild mass effect along the right central pulmonary arteries due to the lymphadenopathy. Dominant right hilar lymph node measures 2.6 cm. There is enlarged subcarinal lymph node measuring 4.3 x 1.8 cm. No left hilar lymphadenopathy. The thyroid gland enhances normally. Normal caliber esophagus. No pleural effusions. Small anterior pericardial effusion. The heart is normal in size. Please refer to same day abdomen and pelvis CT for further evaluation of the hepatic metastases. There again noted multiple focal osseous metastatic lesions seen throughout the chest resulting in pathologic fractures of the bilateral ribs. This is similar to the prior study. Some of the scattered thoracic spine lesions demonstrate cortical breakthrough with epidural involvement. However, there is no significant central canal narrowing. Subacute to chronic mild inferior endplate compression fracture at T9 is again noted. This appears to represent a pathologic fracture. There may be an additional subtle pathologic fracture the inferior plate of T11 which is age indeterminate. No pneumothorax. Emphysema again noted. No significant change in the 2.7 cm right upper lobe suprahilar mass. There are few satellite nodules extending from a right upper lobe lesion. The irregular 10 mm nodule within the right lower lobe on image 199 is also unchanged. This is concerning for a metastatic focus. A few small subpleural nodules within the left upper lobe anteriorly with the largest measuring 6 mm. These are best seen on image 108. IMPRESSION: 1. No evidence for a pulmonary embolus. 2. Redemonstration of the spiculated 2.7 cm right upper lobe mass with additional scattered pulmonary nodules consistent with a bronchogenic mal ignancy. 3. Right hilar and subcarinal lymphadenopathy is again noted. 4. Multiple scattered osteoblastic metastatic lesions seen throughout the chest resulting in pathologic fractures of the bilateral ribs and thoracic spine as described above. This is similar to the prior study. 5. Some of the osseous metastatic foci within the thoracic spine demonstrate epidural involvement without significant central canal narrowing. 6. Hepatic metastatic disease again noted. 7. Additional findings as described above. ACT 112: Negative or not required by law. Electronically signed by: Nathanael Jimenez M.D. 07/06/2022 1:[address] 07/06/22 11:15 CT head/brain wo con CLINICAL HISTORY: fall Technique: Contiguous axial CT images of the head were acquired from the base of the skull to the vertex without intravenous contrast administration. Images were viewed in brain, subdural and bone windows. Automated dose lowering techniques and/or adjustment according to patient size were utilized for this exam. Comparison: None available at the time of this dictation. Findings: Areas of decreased attenuation are present in the periventricular and subcortical white matter bilaterally consistent with small vessel ischemic disease. Generalized cerebral atrophy with commensurate enlargement of the ventricles, sulci, and cisterns is also present. There is no acute intracranial hemorrhage or evidence of acute territorial infarction. No shift of the midline structures, mass effect, or extra-axial abnormalities are shown. Atherosclerotic calcifications are present in the intracranial segments of the internal carotid arteries. Imaged portions of the paranasal sinuses and mastoid air cells are clear. The orbits appear normal. There are no acute fractures of the calvaria or scalp swelling. Impression: No acute intracranial hemorrhage, skull fractures, or scalp swelling. ACT 112: Negative or not required by law. Electronically signed by: Marciano Valdivia M.D. 07/06/2022 1:[address] 07/06/22 11:40 CT lumbar spine w con CLINICAL HISTORY: falls, lytic lesions TECHNIQUE: Multidetector row helical CT of the lumbar spine was performed without administration of intravenous contrast. Coronal and sagittal reformations were obtained. Automated dose lowering techniques and/or adjustment according to patient size were utilized for this exam. Comparison: Comparison is made to CT abdomen pelvis 04/27/2022 FINDINGS: For counting purposes, the last complete intervertebral disc space is considered L5-S1. There is mild loss of height anteriorly at T11. This is age-indeterminate but favored to be chronic. No definite acute fracture is seen. Multiple lytic lesions are seen throughout the spine. Prominent lytic foci include a 28 mm lyt ic lesion in the left iliac wing, a 25 mm lesion in the left sacrum, and a 18 mm lytic lesion in the left anterior L5 vertebral body. There is also a 21 mm right iliac lytic focus which previously measured 11 mm. Mild degenerative changes are seen throughout the spine. Vertebral body alignment is within normal limits. Bilateral adrenal thickening is seen. Please see CT abdomen pelvis performed for soft tissue findings. IMPRESSION: Interval significant enlargement of multiple lytic lesions. Several demonstrate cortical erosion. ACT 112: Negative or not required by law. Electronically signed by: Marciano Valdivia M.D. 07/06/2022 2:[address] 07/06/22 11:40 CT thoracic spine w con CLINICAL HISTORY: falls, lytic lesions. Back pain. COMPARISON STUDY: PET CT 06/30/2022. FINDINGS: Multiple scattered osteolytic metastatic lesions seen within the thoracic spine which are similar to the prior study. There is a mild inferior endplate pathologic compression fracture T9, unchanged. This is likely subacute. There is a nondisplaced inferior endplate compression fracture at T11 which appears acute to subacute. A few of these osseous metastatic foci demonstrate cortical breakthrough with epidural involvement without significant stenosis. This is most pronounced at the T6 level. Multiple osteolytic/destructive lesions also noted within the ribs. Mild dextroscoliosis scoliosis of the thoracic spine. Please see report on the same day chest CT for further evaluation. IMPRESSION: 1. Multiple scattered osteoblastic metastatic lesions again seen throughout the thoracic spine and ribs. 2. There is a subacute mild inferior endplate compression fracture at T9, unchanged. 3. There is a nondisplaced inferior endplate compression fracture at T11 which appears to be acute to subacute. This results in minimal anterior wedging. No associated retropulsion. 4. A few of the thoracic spine metastatic foci demonstrate epidural involvement without significant central canal stenosis. ACT 112: Negative or not required by law. Electronically signed by: Nathanael Jimenez M.D. 07/06/2022 1:43 PM Discharge Plan Visit Data Chief Complaint: Chest Pain Stated Complaint: CHEST PAIN, SWELLING IN FEET AND ANKLES ED Provider: Holger Cavazos Discharge Problem: Breathlessness, CHF (congestive heart failure), Elevated troponin I level, Falls, Mass of right lung, Elevated LFTs Patient Disposition: Being Evaluated by Hospitalist Forms Stand Alone Forms: My [facility] Prescriptions Prescriptions: No Action oxycodone 10 mg tablet 10 mg PO TID PRN (Reason: pain) Qty: 25 0RF amlodipine 2.5 mg tablet 2.5 mg PO QAM clopidogrel 75 mg tablet 75 mg PO QAM famotidine 20 mg tablet 20 mg PO QAM metformin 1,000 mg tablet 1,000 mg PO BID Qty: 60 2RF insulin glargine 100 unit/mL solution 30 unit subcut HS Rx Instructions: and 4units in AM atorvastatin 80 mg Tablet 80 mg PO HS isosorbide mononitrate 30 mg Tablet Extended Release 24 Hr 60 mg PO QAM albuterol sulfate 90 mcg/actuation Hfa Aerosol Inhaler 2 puff INHALATION QID PRN (Reason: shortness of breath) metoprolol tartrate 25 mg Tablet 25 mg PO BID budesonide-formoterol 160-4.5 mcg/actuation Hfa Aerosol Inhaler 2 puff INHALATION BID aspirin 81 mg Tablet,Chewable 81 mg PO QAM glipizide 10 mg Tablet 10 mg PO BID cyanocobalamin (vitamin B-12) 1,000 mcg Tablet 1,000 mcg PO QAM empagliflozin 10 mg Tablet 10 mg PO QAM Medical Marijuana 1 hospice aide inhalation 4XWK acetaminophen-codeine 300-30 mg tablet 1 tab PO Q12H PRN (Reason: pain) Qty: 9 0RF Referrals Referrals: Kirsten Arce MD [Primary Care Provider] - : CHF (congestive heart failure) Qualifiers: Heart failure type: unspecified Heart failure chronicity: acute Qualified Code(s): I50.9 - Heart failure, unspecified Falls Qualifiers: Encounter type: initial encounter Qualified Code(s): W19.XXXA - Unspecified fall, initial encounter
[2022-07-06 11:44] LABS: Basophils # (auto) 0.04 K/uL (0-0.2); Basophils % (auto) 0.3 %; Hematocrit (blood only) 49.8 % (40.1-51.0); Hemoglobin 16.8 g/dl (14.0-18.0); Immature Granulocytes # (auto) 0.22 K/uL (0.00-0.02); Immature Granulocytes % (auto) 1.7 %; Lymphocytes # (auto) 0.65 K/uL (1.2-3.4); Lymphocytes % (auto) 4.9 %; Mean Corpuscular Hemoglobin 30.5 pg (25.0-34.0); Mean Corpuscular Hgb Conc 33.7 g/dL (32.0-36.0); Mean Corpuscular Volume 90.5 fL (80.0-100.0); Mean Platelet Volume 9.8 fL (9.4-12.4); Monocytes # (auto) 1.08 K/uL (0.24-0.82); Monocytes % (auto) 8.2 %; Neutrophils # (auto) 11.21 K/uL (1.4-6.5); Neutrophils % (auto) 84.9 %; Platelet Count 213 K/uL (130-400); RDW Coefficient of Variation 17.2 % (11.5-14.5); RDW Standard Deviation 54.4 fL (36.4-46.3)
--- NOTE | 2022-07-06 11:45 | XRay Report ---
XR chest 1V portable CLINICAL HISTORY: Chest Pain TECHNIQUE: Single frontal radiograph of the chest was obtained. Comparison: Comparison is made to chest radiograph 02/03/2019 FINDINGS: No lines and tubes are seen. The cardiomediastinal silhouette is normal. Bilateral perihilar fullness is again seen. No evidence of pleural effusion or pneumothorax. IMPRESSION: Stable perihilar fullness which may represent mild pulmonary edema versus lymphadenopathy. Attention on CTA chest which has already been ordered is recommended. ACT 112: Negative or not required by law. Electronically signed by: Marciano Valdivia M.D. 07/06/2022 11:43 AM
[2022-07-06 11:55] LABS: INR 1.1 (0.9-1.1); Prothrombin Time 11.4 Seconds (9.0-12.0)
[2022-07-06 12:10] LABS: Albumin Globulin Ratio 1.3 (0.9-2); Albumin Level 3.7 gm/dl (3.4-5.0); Bilirubin,Total 2.3 mg/dl (0.2-1.0); Calcium 9.3 mg/dl (8.5-10.1); Est GFR (African American) 110.3 ml/min; Est GFR (Non-African American) 95.2 ml/min; Globulin 2.8 gm/dl (2.5-4.0); Potassium 3.4 mmol/L (3.5-5.1); Total Protein 6.5 gm/dl (6.0-8.3)
[2022-07-06 12:18] LABS: Troponin I High Sensitivity 530.3 pg/ml (0-20)
--- NOTE | 2022-07-06 13:20 | CT Scan Report ---
CT head/brain wo con CLINICAL HISTORY: fall Technique: Contiguous axial CT images of the head were acquired from the base of the skull to the maddison chuck without intravenous contrast administration. Images were viewed in brain, subdural and [facility]. Automated dose lowering techniques and/or adjustment according to patient size were utilized for this exam. Comparison: None available at the time of this dictation. Findings: Areas of decreased attenuation are present in the periventricular and subcortical white matter bilate rally consistent with small vessel ischemic disease. Generalized cerebral atrophy with commensurate e nlargement of the ventricles, sulci, and cisterns is also present. There is no acute intracranial hem orrhage or evidence of acute territorial infarction. No shift of the midline structures, mass effect, or extra-axial abnormalities are shown. Atherosclerotic calcifications are present in the intracran ial segments of the internal carotid arteries. Imaged portions of the paranasal sinuses and mastoid air cells are clear. The orbits appear normal. There are no acute fractures of the calvaria or scalp swelling. Impression: No acute intracranial hemorrhage, skull fractures, or scalp swelling. ACT 112: Negative or not required by law. Electronically signed by: Marciano Valdivia M.D. 07/06/2022 1:19 PM
--- NOTE | 2022-07-06 13:29 | CT Scan Report ---
CT OF THE CERVICAL SPINE WITHOUT CONTRAST CLINICAL HISTORY: fall COMPARISON STUDY: PET/CT June 30, 2022. TECHNIQUE: Helical axial images of the cervical spine were obtained without IV contrast. Sagittal a nd coronal reconstructions were viewed. Automated exposure control was utilized for the study. A do se lowering technique was utilized adhering to the principles of ALARA. FINDINGS: Trace fluid within the right mastoid air cells. Straightening of the cervical lordosis is n oted. No acute cervical spine fracture is noted. Moderate multilevel degenerative disc disease and fa cet arthrosis is present. There is no prevertebral edema. Several lytic skeletal lesions are noted. T hese include a 1.2 cm lytic lesion within the left articulating facet of C6. There is also a 1.5 cm l ytic lesion within the left articulating facet of C7. IMPRESSION: 1. No acute cervical spine fracture or subluxation. 2. Lytic lesions within the left articular facets of C6 and C7 suggestive of metastatic disease. Mult iple myeloma is also within the differential. 3. Moderate multilevel degenerative disc disease and facet arthrosis within the cervical spine. ACT 112: Negative or not required by law. Electronically signed by: Scott Lloyd M.D. 07/06/2022 1:27 PM
--- NOTE | 2022-07-06 13:39 | CT Scan Report ---
CHEST CTA for PULMONARY ARTERIES CT DOSE: HISTORY: Fall. Atypical chest pain. Leg swelling. TECHNIQUE: Multiaxial CT images of the chest were performed following the intravenous administration of contrast to evaluate the pulmonary arteries. Maximal intensity projection images were also obtaine d. A dose lowering technique was utilized adhering to the principles of ALARA. COMPARISON STUDY: Chest CTA 02/03/2019. PET CT 06/30/2022. FINDINGS: No evidence for aneurysm or dissection. Suboptimal opacification of the pulmonary arteries. However, no definite filling defects within the pulmonary arteries to suggest a pulmonary embolus. T here is mild mass effect along the right central pulmonary arteries due to the lymphadenopathy. Domin ant right hilar lymph node measures 2.6 cm. There is enlarged subcarinal lymph node measuring 4.3 x 1 .8 cm. No left hilar lymphadenopathy. The thyroid gland enhances normally. Normal caliber esophagus. No pleural effusions. Small anterior pericardial effusion. The heart is normal in size. Please refer to same day abdomen and pelvis CT for further evaluation of the hepatic metastases. There again noted multiple focal osseous metastatic lesions seen throughout the chest resulting in pathologic fracture s of the bilateral ribs. This is similar to the prior study. Some of the scattered thoracic spine les ions demonstrate cortical breakthrough with epidural involvement. However, there is no significant ce ntral canal narrowing. Subacute to chronic mild inferior endplate compression fracture at T9 is again noted. This appears to represent a pathologic fracture. There may be an additional subtle pathologic fracture the inferior plate of T11 which is age indeterminate. No pneumothorax. Emphysema again note d. No significant change in the 2.7 cm right upper lobe suprahilar mass. There are few satellite nodu les extending from a right upper lobe lesion. The irregular 10 mm nodule within the right lower lobe on image 199 is also unchanged. This is concerning for a metastatic focus. A few small subpleural nod ules within the left upper lobe anteriorly with the largest measuring 6 mm. These are best seen on im age 108. IMPRESSION: 1. No evidence for a pulmonary embolus. 2. Redemonstration of the spiculated 2.7 cm right upper lobe mass with additional scattered pulmonary nodules consistent with a bronchogenic malignancy. 3. Right hilar and subcarinal lymphadenopathy is again noted. 4. Multiple scattered osteoblastic metastatic lesions seen throughout the chest resulting in patholog ic fractures of the bilateral ribs and thoracic spine as described above. This is similar to the prio r study. 5. Some of the osseous metastatic foci within the thoracic spine demonstrate epidural involvement wit hout significant central canal narrowing. 6. Hepatic metastatic disease again noted. 7. Additional findings as described above. ACT 112: Negative or not required by law. Electronically signed by: Nathanael Jimenez M.D. 07/06/2022 1:38 PM
--- NOTE | 2022-07-06 13:44 | CT Scan Report ---
CT thoracic spine w con CLINICAL HISTORY: falls, lytic lesions. Back pain. COMPARISON STUDY: PET CT 06/30/2022. FINDINGS: Multiple scattered osteolytic metastatic lesions seen within the thoracic spine which are s imilar to the prior study. There is a mild inferior endplate pathologic compression fracture T9, unch anged. This is likely subacute. There is a nondisplaced inferior endplate compression fracture at T11 which appears acute to subacute. A few of these osseous metastatic foci demonstrate cortical breakth rough with epidural involvement without significant stenosis. This is most pronounced at the T6 level . Multiple osteolytic/destructive lesions also noted within the ribs. Mild dextroscoliosis scoliosis of the thoracic spine. Please see report on the same day chest CT for further evaluation. IMPRESSION: 1. Multiple scattered osteoblastic metastatic lesions again seen throughout the thoracic spine and ri bs. 2. There is a subacute mild inferior endplate compression fracture at T9, unchanged. 3. There is a nondisplaced inferior endplate compression fracture at T11 which appears to be acute to subacute. This results in minimal anterior wedging. No associated retropulsion. 4. A few of the thoracic spine metastatic foci demonstrate epidural involvement without significant c entral canal stenosis. ACT 112: Negative or not required by law. Electronically signed by: Nathanael Jimenez M.D. 07/06/2022 1:43 PM
--- NOTE | 2022-07-06 13:56 | CT Scan Report ---
ABDOMEN AND PELVIS CT WITH IV CONTRAST HISTORY: Acute abdominal pain falls, leg swelling, abdominal contusions TECHNIQUE: Multiaxial CT images of the abdomen and pelvis were performed following the IV administrat ion of 115 cc of Optiray, A dose lowering technique was utilized adhering to the principles of ALARA . COMPARISON STUDY: PET CT 06/30/2022 FINDINGS: Small pericardial effusion. 10 mm irregular nodule of the basal right lower lobe, image 7 s eries 12. Subsegmental bibasilar atelectasis. No pneumatosis or pneumoperitoneum. Unremarkable spleen, and pancreas. Thickening of the adrenal glands is similar to 04/27/2022. Cholecyst ectomy. Scattered hypodense lesions of the liver suggestive of metastasis measure up to 2.7 cm and th e right hepatic lobe. Marginal nodularity of the liver has progressed from the prior study. Trace per ihepatic ascites. Mild nonspecific bilateral perinephric stranding. 2.1 cm cyst within the inferior pole right kidney. 9 mm indeterminate nodule in the right perinephric space is unchanged from the most recent comparison . Prostamegaly. Unremarkable urinary bladder. Atherosclerosis of the aorta. Mild periportal lymphaden opathy. No bowel obstruction or bowel wall thickening. Colonic diverticulosis. Mild colonic fecal retention. Normal appendix. 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 Epidu ral and neural foraminal extension of disease as previously discussed is also stable. Mild pathologic fractures of the lower thoracic spine appear unchanged. IMPRESSION: 1. Stable exam from the PET CT obtained 06/30/2022 2. Multifocal hepatic metastasis with marginal nodularity of the liver suggestive of cirrhosis versus pseudocirrhosis with trace perihepatic ascites. 3. Mild periportal lymphadenopathy. 4. Multifocal osteolytic skeletal metastasis with pathologic fractures of the ribs and lower thoracic spine appear unchanged. 5. No bowel obstruction or bowel wall thickening. 6. Additional findings as above. ACT 112: Negative or not required by law. The above report was generated using voice recognition software. It may contain grammatical, syntax o r spelling errors. Electronically signed by: Ortiz Blevins M.D. 07/06/2022 1:55 PM
[2022-07-06] MEDS ORDERED: FUROSEMIDE INJ 20 MG/2 ML VIAL IV ONE (14:01)
--- NOTE | 2022-07-06 14:01 | CT Scan Report ---
CT lumbar spine w con CLINICAL HISTORY: falls, lytic lesions TECHNIQUE: Multidetector row helical CT of the lumbar spine was performed without administration of i ntravenous contrast. Coronal and sagittal reformations were obtained. Automated dose lowering techniq ues and/or adjustment according to patient size were utilized for this exam. Comparison: Comparison is made to CT abdomen pelvis 04/27/2022 FINDINGS: For counting purposes, the last complete intervertebral disc space is considered L5-S1. There is mild loss of height anteriorly at T11. This is age-indeterminate but favored to be chronic. No definite acute fracture is seen. Multiple lytic lesions are seen throughout the spine. Prominent l ytic foci include a 28 mm lytic lesion in the left iliac wing, a 25 mm lesion in the left sacrum, and a 18 mm lytic lesion in the left anterior L5 vertebral body. There is also a 21 mm right iliac lytic focus which previously measured 11 mm. Mild degenerative changes are seen throughout the spine. Vert ebral body alignment is within normal limits. Bilateral adrenal thickening is seen. Please see CT abd omen pelvis performed same day for soft tissue findings. IMPRESSION: Interval significant enlargement of multiple lytic lesions. Several demonstrate cortical erosion. ACT 112: Negative or not required by law. Electronically signed by: Marciano Valdivai M.D. 07/06/2022 2:00 PM
--- NOTE | 2022-07-06 14:14 | Electrocardiogram Report ---
Test Reason : Blood Pressure : / mmHG Vent. Rate : 094 BPM Atrial Rate : 094 BPM P-R Int : 134 ms QRS Dur : 078 ms QT Int : 370 ms P-R-T Axes : 042 -30 062 degrees QTc Int : 462 ms Sinus rhythm with Premature atrial complexes Left axis deviation Septal infarct , age undetermined Abnormal ECG When compared with ECG of 05-FEB-2019 06:43, Premature atrial complexes are now Present QRS axis Shifted left Septal infarct is now Present ST now depressed in Inferior leads Confirmed by Agus Landa ([id number]) on 07/06/2022 2:13:49 PM Referred By: REFERRED SELF Confirmed By:Agus Landa
--- NOTE | 2022-07-06 16:30 | History & Physical Report ---
Date of Service July 06, 2022 Assessment & Plan (1) Metastatic adenocarcinoma: Plan: Pt has widely metastatic lesions, given smoking history some concern if 2 primaries, prostate is confirmed adenocarcinoma, will look to get liver lesion. Previous seen Dr Soto, calcium is normal, will set for US liver bx, hold aspirin and plavix at this time but cautiously with elevated troponin and h/o CAD this may change if troponin goes up, will push biopsy to 07/08 to give time for the cardiology to be worked out (2) Elevated troponin I level: Plan: Patient with elevated troponin level no overt complaints of chest pain but does have dyspnea and progressive swelling. Last echo from 3 years ago showed preserved EF. Patient however has a history of coronary disease which has been treated by dual antiplatelets isosorbide and metoprolol Will get echocardiogram additional troponin this evening and consult cardiology. He is being diuresed for presumed heart failure of undetermined type at this present time (3) Elevated LFTs: Plan: Patient is elevated LFTs known metastasis we will repeat in the morning (4) COPD (chronic obstructive pulmonary disease): Plan: Currently COPD is stable continue budesonide formoterol and as needed albuterol (5) RICKEY (obstructive sleep apnea): Plan: We will offer her inpatient CPAP (6) Diabetes mellitus, type II: Plan: Will have on a carbohydrate conservative low-salt diet and have basal bolus insulin (7) DVT prophylaxis: Plan: Heparin for DVT prevention will be held prior to biopsy History of Present Illness Primary Care Provider: Kirsten Arce MD 77-year-old male currently being worked up for known prostate cancer with wide metastasis to spine additional lesions are seen in lung and liver unknown whether they are metastatic from the prostate or additional malignancies. The patient does have his extensive smoking history when he was in the service. Initial work-up for his PSA included an elevated CEA but negative CA 19-9 prostate biopsy showed adenocarcinoma Lina score 6 Patient is here because of multiple falls at home over the last week he has had mostly mechanical falls but today his fall was significant. His falls been preceded by some back pain could be in the area of known metastasis. His injuries are not significant mostly abrasions and contusions. Patient is noticed increasing shortness of breath of the past 3 weeks and increasing swelling of his legs over the past few days. In the emergency department he had CT angiography which ruled out pulmonary embolism pending our lower extremity Dopplers Patient previously has seen Dr. Soto in hematology oncology I did run the case by her and she requested to consider ultrasound-guided biopsy of the liver to evaluate lesions Allergies Allergy/AdvReac Type Severity Reaction Status Date / Time losartan Allergy Mild face Verified 07/06/22 16:32 swelling Home Medications Medication Instructions Recorded Confirmed Type albuterol sulfate 90 mcg/actuation 2 puff inhalation QID PRN 02/03/19 06/30/22 History aerosol inhaler shortness of breath aspirin 81 mg chewable tablet 81 mg PO QAM 02/03/19 06/30/22 History atorvastatin 80 mg tablet 80 mg PO HS 02/03/19 06/30/22 History budesonide-formoterol HFA 160 2 puff inhalation BID 02/03/19 06/30/22 History mcg-4.5 mcg/actuation aerosol inhaler isosorbide mononitrate 30 mg 60 mg PO QAM 02/03/19 06/30/22 History tablet,extended release 24 hr metoprolol tartrate 25 mg tablet 25 mg PO BID 02/03/19 06/30/22 History amlodipine 2.5 mg tablet 2.5 mg PO QAM 12/06/19 06/30/22 History clopidogrel 75 mg tablet 75 mg PO QAM 12/06/19 06/30/22 History famotidine 20 mg tablet 20 mg PO QAM 12/06/19 06/30/22 History Medical Marijuana 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 4XWK 06/04/20 06/30/22 History cyanocobalamin (vitamin B-12) 1,000 mcg PO QAM 06/04/20 06/30/22 History 1,000 mcg tablet empagliflozin 10 mg tablet 10 mg PO QAM 06/04/20 06/30/22 History glipizide 10 mg tablet 10 mg PO BID 06/04/20 06/30/22 History insulin glargine 100 unit/mL 30 unit subcut HS 06/16/20 06/30/22 History subcutaneous solution metformin 1,000 mg tablet 1,000 mg PO BID #60 tabs 06/16/20 06/30/22 Rx acetaminophen 300 mg-codeine 30 mg 1 tab PO Q12H PRN pain #9 tabs 04/27/22 07/06/22 Rx tablet oxycodone 10 mg tablet 10 mg PO TID PRN pain #25 tabs 06/30/22 07/06/22 Rx Past Med/Surg History Medical History (Updated 07/06/22 @ 16:39 by Florencio Woodruff MD) CAD (coronary artery disease) Chronic obstructive pulmonary disease WELL CONTROLLED PER PATIENT Diabetes mellitus, type II IDDM Fusion of spine 1993 THORACIC AREA GERD (gastroesophageal reflux disease) UNDER CONTROL HLD (hyperlipidemia) HTN (hypertension) Kidney stones PASSED ON OWN Medical marijuana use Myocardial Infarction JANUARY 2019 FOLLOWS WITH [facility] RICKEY (obstructive sleep apnea) Osteoarthritis Sleep apnea CPAP Surgical History H/O removal of cyst FOREHEAD, THIGH, HIP> ALL BENIGN History of cholecystectomy History of colonoscopy History of esophagogastroduodenoscopy (EGD) History of left cataract surgery History of tonsillectomy History of tooth extraction Hx of angioplasty NO STENTS JANUARY 2019 FOLLOWING CO> [facility] Hx of surgical procedure REMOVAL OF METAL FROM LEFT LEG OVER 10 YRS AGO Family History Sister Breast cancer Grandfather (Paternal) Myocardial infarction Uncle Myocardial infarction Father Myocardial infarction Brother Myocardial infarction Family/Other Myocardial infarction cousin Other Coronary heart disease Denies family history of Ovarian cancer Prostate cancer Colorectal cancer Social History Smoking Status: Former smoker Second Hand Exposure: No; Hx Alcohol Use: No Hx Substance Use: Yes Substance Use Type Other:: MEDICAL MARIJUANA CARD FOR PAIN> 3-4X PER DAY Preferred Language: German Communication Ability: Effective Lathe Tender Required: No Beliefs That Will Affect Care: None Current Living Situation: Alone current occupational status: retired Feels Safe at Home: Yes caffeine: Yes (coffee) Dental Care, Regularly: No Physical Activity Frequency: 3-4 Times per Week Physical Activity Frequency Comment: walking the dog Seatbelt Use: always Sunscreen Use: No Assistive Devices: Denture - Upper, Denture - Lower and Glasses Review of Systems Review of Systems: Mild distress and moderate fatigue no headache, no visual changes no speech or swallowing issues no chest pain, pressure or palpitations Creasing shortness of breath over the past few weeks worse with exertion Patient's had CVA pain and lateral abdominal pain, nausea or vomiting, constipation alternating with loose bowel movements no dysuria, hematuria or frequency no focal joint pain significant lower extremity swelling Lower thoracic upper lumbar back pain with CVA angle tenderness but no radiation of pain Patient is in bleeding about his lower extremities without open areas No radicular or radiating type discomfort no complaints of anxiety or depression.. Physical Exam Physical Exam: The patient appeared well nourished and normally developed. Vital signs as documented. Head exam is normocephalic atraumatic Neck is without JVD, thyromegaly, or carotid bruits. Lungs are clear to auscultation, no focal loss of breath sounds Cardiac exam, Rhythm is regular.. No murmurs, rubs or gallops. Abdominal exam reveals normal bowel sounds, soft non tender, patient may have hepatomegaly no focal areas of tenderness rebound or guarding Extremities are 2+ edematous bilaterally and both pedal pulses are present Neurologic exam is alert and oriented, no focal loss of strength or sensation Skin is with bruises of his knees shins and feet Psychologically is without concerns for anxiety or depression.. Results & Data Results & Data ([facility]) Vital Signs (Past 12 Hours) Vital Signs Temp Pulse Resp BP BP Pulse Ox O2 Del Method 07/06/22 14:00 21 158/95 H 96 07/06/22 12:39 18 97 07/06/22 12:51 97 Room Air 07/06/22 12:51 Room Air 07/06/22 11:30 102 H 21 97 07/06/22 11:20 102 H 22 96 07/06/22 11:10 95 H 24 97 07/06/22 11:04 100 H 18 94 07/06/22 11:33 97 Room Air 07/06/22 10:39 97.0 F L 98 H 16 181/98 H 97 O2 Flow Rate 07/06/22 14:00 07/06/22 12:39 07/06/22 12:51 0 07/06/22 12:51 07/06/22 11:30 07/06/22 11:20 07/06/22 11:10 07/06/22 11:04 07/06/22 11:33 07/06/22 10:39 ECG Additional Comments: nsr with some nonspecific st changes Code Status & VTE Plan VTE Prophylaxis Plan VTE Prophylaxis will be ordered: Yes PG Care Time/CCT Total # of Minutes Spent Total Time Spent with Patient: Total time spent is greater than 50% in coordination of care (as documented) at patient's floor/unit and/or counseling patient: Coding Level of Care Code 50926 Initial Inpt Care Lvl 3 Diagnoses Metastatic adenocarcinoma C79.9 Elevated troponin I level R77.8 Elevated LFTs R79.89 COPD (chronic obstructive pulmonary disease) J44.9 RICKEY (obstructive sleep apnea) G47.33 Diabetes mellitus, type II E11.9 DVT prophylaxis Z29.9
--- NOTE | 2022-07-06 17:40 | Cardiology Consultation ---
Date of Consultation July 06, 2022 Assessment & Plan (1) CHF (congestive heart failure): (2) Metastatic adenocarcinoma: -Patient received a dose of furosemide 20 mg in the emergency room. Output will be difficult to measure given his incontinence. -Given elevation in his liver function test, will hold off on his atorvastatin at present. -Clopidogrel likely needs to be held given plans for ultrasound-guided hepatic biopsy. -Agree with trending troponin. Presentation does not seem suggestive of an acute coronary syndrome, but I am concerned about potential for patient having developing interval left ventricular systolic dysfunction since last assessment in 2019. -Plan for echocardiogram tomorrow. -There has been tentative plans for an outpatient echocardiogram and nuclear stress test. We will obtain echocardiogram here. Determine need for further testing depending on his course. - History of Present Illness History of Present Illness Law Ott is a 77-year-old male seen in cardiology consultation per the request of Dr. Woodruff for the evaluation of shortness of breath with exertion, lower extremity edema. Patient had recently been seen at [facility] on 07/02/[address] Don to re-establish with general cardiology. Patient presents to the emergency room with 3 falls this week. Notes progressive shortness of breath, recent accumulation of lower extremity, ankle, pedal edema over the last several days. Patient's recent history dates back to April of this year when he had presented to the emergency department with progressive back and flank pain. Work-up pursued in the interim time, has revealed diagnosis of metastatic adenocarcinoma. 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 CT angiogram performed today in the emergency room was negative for pulmonary embolism, with findings otherwise similar to that noted on recent PET/CT. Patient describes pain in his chest wall with breathing, but no definite angina. Notes recent urinary incontinence. Past medical history is notable for coronary heart disease. He underwent cardiac catheterization performed by Dr. Ness of our practice in January, with findings of a chronic right coronary artery occlusion with [id number] collaterals. In the proximal LAD, there is a 40 to 50% stenosis, 30% mid LAD stenosis, circumflex with noted mild luminal irregularities. Medication therapy recommended at that time, and the patient has been maintained on dual antiplatelet therapy. Prior to his recent visit on 07/02/2022, he had not been seen by our cardiology practice since 2019. [facility]. Allergies Allergy/AdvReac Type Severity Reaction Status Date / Time losartan Allergy Mild face Verified 07/06/22 16:32 swelling Home Medications Medication Instructions Recorded Confirmed Type albuterol sulfate 90 mcg/actuation 2 puff inhalation QID PRN 02/03/19 07/06/22 History aerosol inhaler shortness of breath aspirin 81 mg chewable tablet 81 mg PO QAM 02/03/19 07/06/22 History atorvastatin 80 mg tablet 80 mg PO HS 02/03/19 07/06/22 History budesonide-formoterol HFA 160 2 puff inhalation BID 02/03/19 07/06/22 History mcg-4.5 mcg/actuation aerosol inhaler isosorbide mononitrate 30 mg 60 mg PO QAM 02/03/19 07/06/22 History tablet,extended release 24 hr metoprolol tartrate 25 mg tablet 25 mg PO BID 02/03/19 07/06/22 History amlodipine 2.5 mg tablet 2.5 mg PO QAM 12/06/19 07/06/22 History clopidogrel 75 mg tablet 75 mg PO QAM 12/06/19 07/06/22 History famotidine 20 mg tablet 20 mg PO QAM 12/06/19 07/06/22 History Medical Marijuana 1 [employer] inhalation [id number] 06/04/20 07/06/22 History cyanocobalamin (vitamin B-12) 1,000 mcg PO QAM 06/04/20 07/06/22 History 1,000 mcg tablet empagliflozin 10 mg tablet 10 mg PO QAM 06/04/20 07/06/22 History glipizide 10 mg tablet 10 mg PO BID 06/04/20 07/06/22 History insulin glargine 100 unit/mL 30 unit subcut HS 06/16/20 07/06/22 History subcutaneous solution metformin 1,000 mg tablet 1,000 mg PO BID #60 tabs 06/16/20 07/06/22 Rx acetaminophen 300 mg-codeine 30 mg 1 tab PO Q12H PRN pain #9 tabs 04/27/22 07/06/22 Rx tablet oxycodone 10 mg tablet 10 mg PO TID PRN pain #25 tabs 06/30/22 07/06/22 Rx Patient History Medical History CAD (coronary artery disease) Chronic obstructive pulmonary disease WELL CONTROLLED PER PATIENT Diabetes mellitus, type II IDDM Fusion of spine 1993 THORACIC AREA GERD (gastroesophageal reflux disease) UNDER CONTROL HLD (hyperlipidemia) HTN (hypertension) Kidney stones PASSED ON OWN Medical marijuana use Myocardial Infarction JANUARY 2019 FOLLOWS WITH [facility] RICKEY (obstructive sleep apnea) Osteoarthritis Sleep apnea CPAP Surgical History H/O removal of cyst FOREHEAD, THIGH, HIP> ALL BENIGN History of cholecystectomy History of colonoscopy History of esophagogastroduodenoscopy (EGD) History of left cataract surgery History of tonsillectomy History of tooth extraction Hx of angioplasty NO STENTS JANUARY 2019 FOLLOWING [place]> [facility] Hx of surgical procedure REMOVAL OF METAL FROM LEFT LEG OVER 10 YRS AGO Family History Sister Breast cancer Grandfather (Paternal) Myocardial infarction Uncle Myocardial infarction Father Myocardial infarction Brother Myocardial infarction Family/Other Myocardial infarction cousin Other Coronary heart disease Denies family history of Ovarian cancer Prostate cancer Colorectal cancer Social History Smoking Status: Former smoker Second Hand Exposure: No; Hx Alcohol Use: No Hx Substance Use: Yes Substance Use Type Other:: MEDICAL MARIJUANA CARD FOR PAIN> 3-4X PER DAY Preferred Language: Uzbek Communication Ability: Effective Waterfront Director Required: No Beliefs That Will Affect Care: None Current Living Situation: Alone current occupational status: retired Feels Safe at Home: Yes caffeine: Yes (coffee) Dental Care, Regularly: No Physical Activity Frequency: 3-4 Times per Week Physical Activity Frequency Comment: walking the dog Seatbelt Use: always Sunscreen Use: No Assistive Devices: Denture - Upper, Denture - Lower and Glasses Review of Systems Review of Systems: All systems reviewed & are unremarkable except as noted in HPI & below Physical Exam Constitutional: Chronically ill, no acute distress Respiratory: Mildly reduced breath sounds in the bases Cardiovascular: Rate/Rhythm: regular rate and + tachycardic Extremities: + edema (2+ lower extremity, pedal edema) Gastrointestinal (Abdomen): normal bowel sounds, soft, nontender, no hepatosplenomegaly Neurologic: PERRL, EOMI, accommodation nl, no face palsy, no dysarthria Results & Data ([facility]) Vital Signs (Past 12 Hours) Vital Signs Temp Pulse Pulse Resp BP BP Pulse Ox 07/06/22 16:00 107 H 18 158/95 H 98 07/06/22 14:00 21 158/95 H 96 07/06/22 12:39 18 97 07/06/22 12:51 97 07/06/22 12:51 07/06/22 11:30 102 H 21 97 07/06/22 11:20 102 H 22 96 07/06/22 11:10 95 H 24 97 07/06/22 11:04 100 H 18 94 07/06/22 11:33 97 07/06/22 10:39 36.1 C L 98 H 16 181/98 H 97 O2 Del Method O2 Flow Rate 07/06/22 16:00 Room Air 07/06/22 14:00 07/06/22 12:39 07/06/22 12:51 Room Air 0 07/06/22 12:51 Room Air 07/06/22 11:30 07/06/22 11:20 07/06/22 11:10 07/06/22 11:04 07/06/22 11:33 Room Air 07/06/22 10:39 Laboratory Results Cardiac Enzymes 07/06/22 07/06/22 Range/Units 11:22 11:46 AST 155 H (13-39) U/L Troponin I High Sens 530.3 H* (0-20) pg/ml B-Natriuretic Peptide 218 H (0-100) pg/ml Coagulation 07/06/22 07/06/22 Range/Units 11:22 11:46 PT 11.4 (9.0-12.0) Seconds B-Natriuretic Peptide 218 H (0-100) pg/ml CBC 07/06/22 Range/Units 11:22 WBC 13.20 H (4.8-10.8) K/ul RBC 5.50 (4.63-6.08) M/uL Hgb 16.8 (14.0-18.0) g/dl Hct 49.8 (40.1-51.0) % Plt Count 213 (130-400) K/uL Neut # (Auto) 11.21 H (1.4-6.5) K/uL Lymph # (Auto) 0.65 L (1.2-3.4) K/uL Holmes # (Auto) 1.08 H (0.24-0.82) K/uL Eos # (Auto) 0.00 (0-0.50) K/uL Baso # (Auto) 0.04 (0-0.2) K/uL Comprehensive Metabolic Panel 07/06/22 Range/Units 11:22 Sodium 141 (136-145) mmol/L Potassium 3.4 L (3.5-5.1) mmol/L Chloride 102 (98-107) mmol/L Carbon Dioxide 25 (21-32) mmol/L BUN 13 (6-23) mg/dl Creatinine 0.65 (0.6-1.4) mg/dl Glucose 179 H (70-99(Fasting)) mg/dl Calcium 9.3 (8.5-10.1) mg/dl AST 155 H (13-39) U/L ALT 289 H (7-52) U/L Alkaline Phosphatase 287 H (34-104) U/L Total Protein 6.5 (6.0-8.3) gm/dl Albumin 3.7 (3.4-5.0) gm/dl Intake and Output 07/06/22 07/06/22 07/06/22 06:59 14:59 22:59 Other: Weight 90.3 kg Weight Measurement Method Chair Scale Patient Weight 07/07/22 06:59 Weight 90.3 kg Diagnostic Findings EKG performed 07/06/2022 revealed sinus rhythm at 94 bpm with premature atrial contractions, and age-indeterminate septal infarction cannot be excluded based on poor R wave progression in lead V2 V3. Compared to 2019, septal infarction pattern none noted. (1) CHF (congestive heart failure) Heart failure chronicity: acute Heart failure type: unspecified Qualified Code(s): I50.9 - Heart failure, unspecified
[2022-07-06] MEDS ORDERED: ACETAMINOPHEN 325 MG TAB PO PRN (20:16)
[2022-07-06] MEDS ORDERED: ALUMINUM/MAGNESIUM SUSP 30 ML UDC PO PRN (20:16)
[2022-07-06] MEDS ORDERED: GLUCOSE 10 TAB/TUBE PO PRN (20:16)
[2022-07-06] MEDS ORDERED: GLUCOSE 40% GEL 15 GM TUBE PO PRN (20:16)
[2022-07-06] MEDS ORDERED: GLUCAGON FOR INJ 1 MG VIAL SQ PRN (20:16)
[2022-07-06] MEDS ORDERED: POTASSIUM CHLORIDE CRTAB 20 MEQ TABCR PO STA (20:16)
[2022-07-06] MEDS ORDERED: DEXTROSE 50% 50 ML SYRINGE IV PRN (20:16)
[2022-07-06] MEDS ORDERED: ALBUTEROL HFA 8 GM INHALER INH PRN (20:16)
[2022-07-06] MEDS ORDERED: CARBOHYDRATES FOR HYPOGLYCEMIA PO PRN (20:16)
[2022-07-06] MEDS ORDERED: ONDANSETRON INJ 2 MG/ML 2 ML VIAL IV PRN (20:16)
[2022-07-06] MEDS: oxyCODONE HCL IR 5 MG TAB (IMMEDIATE RELEASE) PO PRN (20:46)
[2022-07-06] MEDS ORDERED: METOPROLOL TARTRATE 25 MG TAB PO SCH (21:00)
[2022-07-06] MEDS ORDERED: LANTUS PER UNIT CHARGE SC SCH (21:00)
[2022-07-06] MEDS: INSULIN ASPART PER UNIT SC SCH (21:54)
[2022-07-06] MEDS: LANTUS PER UNIT CHARGE SQ SCH (21:54)
[2022-07-07] MEDS: oxyCODONE HCL IR 5 MG TAB (IMMEDIATE RELEASE) PO PRN ×2 (04:26→20:54)
[2022-07-07 08:18] LABS: Hematocrit (blood only) 46.9 % (40.1-51.0); Hemoglobin 16.3 g/dl (14.0-18.0); Mean Corpuscular Hemoglobin 30.8 pg (25.0-34.0); Mean Corpuscular Hgb Conc 34.8 g/dL (32.0-36.0); Mean Corpuscular Volume 88.5 fL (80.0-100.0); Mean Platelet Volume 9.8 fL (9.4-12.4); Platelet Count 206 K/uL (130-400); RDW Coefficient of Variation 16.7 % (11.5-14.5); RDW Standard Deviation 53.3 fL (36.4-46.3); White Blood Count 12.47 K/ul (4.8-10.8)
[2022-07-07 08:37] LABS: Albumin Globulin Ratio 1.4 (0.9-2); Albumin Level 3.4 gm/dl (3.4-5.0); BUN Creatinine Ratio 23.3 (10-20); Bilirubin,Total 2.5 mg/dl (0.2-1.0); Calcium 8.7 mg/dl (8.5-10.1); Creatinine Clr Calc Pharmacy 125.7 ml/min; Est GFR (Non-African American) 98.4 ml/min; Globulin 2.4 gm/dl (2.5-4.0); Potassium 3.3 mmol/L (3.5-5.1); Total Protein 5.8 gm/dl (6.0-8.3)
[2022-07-07 08:45] LABS: Troponin I High Sensitivity 223.4 pg/ml (0-20)
[2022-07-07 08:47] LABS: Estimated Average Glucose 154 mg/dl
[2022-07-07] MEDS: INSULIN ASPART PER UNIT SC SCH ×4 (08:54→20:53)
[2022-07-07] MEDS: METOPROLOL TARTRATE 50 MG TAB PO SCH ×2 (08:55→20:54)
[2022-07-07] MEDS: FAMOTIDINE 20 MG TAB PO SCH (08:55)
[2022-07-07] MEDS: FLUTICASONE/VILANTEROL 200/25MCG 14 PUFFS/INHALER INH SCH (08:55)
[2022-07-07] MEDS: amLODIPine BESYLATE 5 MG TAB PO SCH (08:56)
[2022-07-07] MEDS: LANTUS PER UNIT CHARGE SQ SCH ×2 (08:56→20:54)
[2022-07-07] MEDS: HEPARIN SOD 5,000 UNIT/0.5 ML VIAL SQ SCH ×2 (08:56→20:53)
[2022-07-07] MEDS: ISOSORBIDE MONO EXTENDED REL 60 MG TABCR PO SCH (08:59)
[2022-07-07] MEDS ORDERED: FUROSEMIDE 40 MG/4 ML VIAL IV SCH (09:00)
[2022-07-07] MEDS ORDERED: POTASSIUM CHLORIDE CRTAB 20 MEQ TABCR PO STA (09:13)
--- NOTE | 2022-07-07 10:12 | Ultrasound Report ---
BILATERAL LOWER EXTREMITY VENOUS DOPPLER HISTORY: Bilateral lower extremity swelling. COMPARISON STUDY: None. FINDINGS: There is normal compressibility, flow, and augmentation within the bilateral lower extremit y deep venous systems. IMPRESSION: No DVT within the right or left lower extremity. ACT 112: Negative or not required by law. Electronically signed by: Nathanael Jimenez M.D. 07/07/2022 10:11 AM
--- NOTE | 2022-07-07 11:17 | Cardiology Progress Note ---
Date of Service July 07, 2022 Assessment & Plan (1) CHF (congestive heart failure): (2) Metastatic adenocarcinoma: (3) Hypertension: (4) Hypokalemia: (5) Mass of right lung: (6) Elevated LFTs: Plan -Patient with metastatic CA in bones, liver, lung. Primary source not confirmed. -Upon admission found to have findings of volume overload, likely multifactorial, but consistent with possible HFpEF. -Echo revealed preserved LVEF. No pericardial effusion as suggestive on CT scan. Echo findings of pericardial fat pad. -Treated with several doses of IV diuretic with improved SOB and improving edema. -I+O's difficult to calculate due to incontinence. -likely would benefit from additional dose of furosemide this afternoon, but he is currently NPO for possible liver biopsy, will wait until he returns from procedure. -Add spironolactone 12.5 mg daily to aid with hypokalemia and hypertension -MOnitor potassium. -statin on hold due to elevated LFT's -Clopidogrel to be held given plans for ultrasound-guided hepatic biopsy. -Troponin trending downward since admission. Presentation does not seem suggestive of an acute coronary syndrome. Case discussed with Dr. Bear. Will follow. Admission and Anticipated Discharge Date Admission Date: July 06, 2022 Supervising Physician Co-Signing Physician Notes Supervising Physician Attestation: I have personally performed a history and physical examination on the patient. I agree with the physician office support assistant's findings and plan as documented with the following additions. Subjective: Patient seen in follow-up. Sitting in bedside chair. Notes lower extremity edema much improved today. He has been able to walk well enough with a walker today to make it to the restroom in terms of being able to void. Exam: Pulmonary: Lungs clear to auscultation bilaterally Cardiovascular: Regular rhythm, no murmurs, no rubs or gallops, trace residual pedal, lower extremity edema Data: Labs as noted Assessment and Plan: Fluid retention, grade 1 diastolic dysfunction noted on echo with preserved LVEF, no evidence of new cardiomyopathy. -Diurese as necessary. Supplement potassium. Low-dose spironolactone added for blood pressure, potassium support. DVT prophylaxis: Subcutaneous heparin 5000 units every 12 hours Pineda eBar, DO Subjective Patient resting comfortably in chair at time of visit this morning. He is NPO for possible liver biopsy? Patient reports SOB has improved from admission. He has ongoing edema, but per his report, this has also improved from admission. No current chest pain. Prelim echo report with preserved LVEF, no wall motion abnormalities, and no pericardial effusion. Review of Systems Review of Systems: All systems reviewed & are unremarkable except as noted in HPI & below Physical Exam Constitutional: WD/WN, vitals as above Respiratory: normal respiratory effort Auscultation: + diminished lung sounds Cardiovascular: Rate/Rhythm: regular rate and regular rhythm Heart Sounds: normal S1 and normal S2; no murmur Extremities: + edema (2+ lower extremity, pedal edema) Gastrointestinal (Abdomen): normal bowel sounds, soft, nontender, no hepatosplenomegaly Neurologic: PERRL, EOMI, accommodation nl, no face palsy, no dysarthria Psychiatric: A+Ox3, euthymic affect Results & Data ([facility]) Vital Signs (Past 12 Hours) Vital Signs Temp Pulse Resp BP Pulse Ox O2 Del Method 07/07/22 07:45 36.4 C L 81 20 158/105 H 95 Room Air 07/07/22 04:00 36.4 C L 79 18 165/100 H 94 Room Air 07/06/22 23:59 36.6 C 103 H 20 115/76 98 Room Air Laboratory Results Cardiac Enzymes 07/06/22 07/06/22 07/06/22 Range/Units 11:22 11:46 18:54 AST 155 H (13-39) U/L Troponin I High Sens 530.3 H* 406.9 H* D (0-20) pg/ml B-Natriuretic Peptide 218 H (0-100) pg/ml 07/07/22 Range/Units 07:44 AST 186 H (13-39) U/L Troponin I High Sens 223.4 H* D (0-20) pg/ml B-Natriuretic Peptide (0-100) pg/ml Coagulation 07/06/22 07/06/22 Range/Units 11:22 11:46 PT 11.4 (9.0-12.0) Seconds B-Natriuretic Peptide 218 H (0-100) pg/ml CBC 07/06/22 07/07/22 Range/Units 11:22 07:44 WBC 13.20 H 12.47 H (4.8-10.8) K/ul RBC 5.50 5.30 (4.63-6.08) M/uL Hgb 16.8 16.3 (14.0-18.0) g/dl Hct 49.8 46.9 (40.1-51.0) % Plt Count 213 206 (130-400) K/uL Neut # (Auto) 11.21 H (1.4-6.5) K/uL Lymph # (Auto) 0.65 L (1.2-3.4) K/uL Casey # (Auto) 1.08 H (0.24-0.82) K/uL Eos # (Auto) 0.00 (0-0.50) K/uL Baso # (Auto) 0.04 (0-0.2) K/uL Comprehensive Metabolic Panel 07/06/22 07/07/22 Range/Units 11:22 07:44 Sodium 141 140 (136-145) mmol/L Potassium 3.4 L 3.3 L (3.5-5.1) mmol/L Chloride 102 104 (98-107) mmol/L Carbon Dioxide 25 25 (21-32) mmol/L BUN 13 14 (6-23) mg/dl Creatinine 0.65 0.60 (0.6-1.4) mg/dl Glucose 179 H 124 H (70-99(Fasting)) mg/dl Calcium 9.3 8.7 (8.5-10.1) mg/dl AST 155 H 186 H (13-39) U/L ALT 289 H 294 H (7-52) U/L Alkaline Phosphatase 287 H 270 H (34-104) U/L Total Protein 6.5 5.8 L (6.0-8.3) gm/dl Albumin 3.7 3.4 (3.4-5.0) gm/dl Intake and Output 07/06/22 07/07/22 07/07/22 22:59 06:59 14:59 Intake Total 200 / 1050 850 / 1050 Output Total 500 / 500 Balance 200 / 550 350 / 550 Intake: Oral 200 / 1050 850 / 1050 Output: Urine 500 / 500 Other: Weight 99.2 kg 99.3 kg Weight Measurement Method Standing Scale Standing Scale Diagnostic Findings Telemetry reviewed - currently NSR with HR's in the 70-80 bpm. Prelim echo report - preserved LV systolic function, no pericardial effusion Venous duplex - negative for DVT. Medications Administered Current Inpatient Medications Acetaminophen (Acetaminophen 325 Mg Tab) 650 mg PO Q4H PRN PRN Reason: Pain or Fever Stop: 08/05/22 20:15 Al Hydrox/Mg Hydrox/Simethicone (Aluminum/Magnesium Susp 30 Ml Udc) 15 ml PO Q4H PRN PRN Reason: Dyspepsia Stop: 08/05/22 20:15 Albuterol (Albuterol Hfa 8 Gm Inhaler) 2 puffs INH QID PRN PRN Reason: shortness of breath Stop: 08/05/22 20:15 Amlodipine Besylate (Amlodipine Besylate 5 Mg Tab) 2.5 mg PO QAM OSCAR Stop: 08/06/22 08:59 Last Admin: 07/07/22 08:56 Dose: 2.5 mg Dextrose (Dextrose 50% 50 Ml Syringe) 25 - 50 ml IV UD PRN; Protocol PRN Reason: Hypoglycemia Protocol Stop: 08/05/22 20:15 Famotidine (Famotidine 20 Mg Tab) 20 mg PO QAM OSCAR Stop: 08/06/22 08:59 Last Admin: 07/07/22 08:55 Dose: 20 mg Fluticasone/Vilanterol (Fluticasone/Vilanterol 200/25mcg 14 Puffs/Inhaler) 1 puffs INH DAILY OSCAR Stop: 08/06/22 08:59 Last Admin: 07/07/22 08:55 Dose: 1 puffs Furosemide (Furosemide 40 Mg/4 Ml Vial) 40 mg IV DAILY OSCAR Stop: 08/06/22 08:59 Last Admin: 07/07/22 08:56 Dose: 40 mg Glucagon (Glucagon For Inj 1 Mg Vial) 1 mg SQ UD PRN; Protocol PRN Reason: Hypoglycemia Protocol Stop: 08/05/22 20:15 Glucose (Glucose 40% Gel 15 Gm Tube) 15 - 30 gm PO UD PRN; Protocol PRN Reason: Hypoglycemia Protocol Stop: 08/05/22 20:15 Glucose (Glucose 10 Tab/Tube) 4 - 8 tab PO UD PRN; Protocol PRN Reason: Hypoglycemia Treatment Stop: 08/05/22 20:15 Heparin Sodium (Porcine) (Heparin Sod 5,000 Unit/0.5 Ml Vial) 5,000 units SQ Q12 OSCAR Stop: 08/06/22 08:59 Last Admin: 07/07/22 08:56 Dose: 5,000 units Insulin Aspart (Insulin Aspart Per Unit) 0 units SC ACHS [facility] Stop: 08/05/22 20:59 Last Admin: 07/07/22 08:54 Dose: 4 units Insulin Glargine (Lantus Per Unit Charge) 20 units SQ BID [facility] Stop: 08/05/22 20:59 Last Admin: 07/07/22 08:56 Dose: 20 units Isosorbide Mononitrate (Isosorbide Casey Extended Rel 60 Mg Tabcr) 60 mg PO QAM [facility] Stop: 08/06/22 08:59 Last Admin: 07/07/22 08:59 Dose: 60 mg Metoprolol Tartrate (Metoprolol Tartrate 50 Mg Tab) 50 mg PO BID [facility] Stop: 08/06/22 08:59 Last Admin: 07/07/22 08:55 Dose: 50 mg Miscellaneous (Carbohydrates For Hypoglycemia ) 15 - 30 gm PO UD PRN PRN Reason: Hypoglycemia Protocol Stop: 08/05/22 20:15 Ondansetron HCl (Ondansetron Inj 2 Mg/Ml 2 Ml Vial) 4 mg IV Q6H PRN PRN Reason: Nausea Stop: 08/05/22 20:15 Oxycodone HCl (Oxycodone Hcl Ir 5 Mg Tab (Immediate Release)) 10 mg PO TID PRN PRN Reason: pain Stop: 07/20/22 20:15 Last Admin: 07/07/22 04:26 Dose: 10 mg (1) CHF (congestive heart failure) Heart failure chronicity: acute Heart failure type: diastolic Qualified Code(s): I50.31 - Acute diastolic (congestive) heart failure
[2022-07-07] MEDS: SPIRONOLACTONE 12.5 MG TAB PO SCH (12:44)
--- NOTE | 2022-07-07 14:11 | Hospitalist Progress Note ---
Date of Service July 07, 2022 Assessment & Plan (1) Metastatic adenocarcinoma: Plan: Pt has widely metastatic lesions, given smoking history some concern of 2 prim azar, prostate is confirmed adenocarcinoma, will look to get bx of liver lesion. - Previously seen by Dr. Soto in April 2022, was still pending further w/u at that time and was to f/u in 1 month to start treatment based on work up - Does not appear that he ever started any treatment for prostate ca which was confirmed by biopsy - Pt now w/ liver and lung lesions (in addition to lytic bone lesions) calcium is normal, will set for US liver bx, hold aspirin and plavix - for liver biopsy 07/08, NPO after MN for such (2) Elevated troponin I level: Plan: - Patient with elevated troponin level no overt complaints of chest pain but does have dyspnea and progressive swelling. - Last echo from 3 years ago showed preserved EF. - Patient however has a history of CAD which has been treated by dual antiplatelets isosorbide and metoprolol - Echo ordered, discussed results with Dr. Bear, pt with preserved EF and no new WMA - Suspect that his mildly elevated HS trop is due to myocardial demand ischemia in setting of acute on chronic HFpEF - No plan for stress test at this time (3) Elevated LFTs: Plan: - Patient with elevated LFTs, known metastatic disease w/ uncertain primary - Liver biopsy scheduled for 07/08 - LFTs stable on AM labs today (4) COPD (chronic obstructive pulmonary disease): Plan: - Currently COPD is stable continue budesonide/formoterol and PRN Albuterol (5) RICKEY (obstructive sleep apnea): Plan: - We will offer inpatient CPAP (6) Diabetes mellitus, type II: Plan: - Will have on a carbohydrate conservative low-salt diet and have basal bolus insulin (7) DVT prophylaxis: Plan: - Heparin for DVT prevention will be held prior to biopsy Plan Hypokalemia with K of 3.3 - replacement ordered. Repeat labs tomorrow. Clarified with Dr. Bear re: plan from a cardiology standpoint, no need for stress test at this time. Liver bx tomorrow. Dose of Lasix this afternoon and monitor respo nse and then d/c IV diuretic. Could consider starting low dose Lasix orally but will hold off as he is presently on Spironolactone. Leukocytosis noted but unclear etiology has he does not have any obvious source of infection or fever. Repeat labs ordered for tomorrow morning. NPO after MN in preparation for liver bx tomorrow. Hold Heparin (last dose tonight). Plan d/w Dr. Eid as well as with cardiology. Admission and Anticipated Discharge Date Admission Date: July 06, 2022 Subjective Patient seen on daily rounds this morning. He is resting comfortably in bedside chair. He reports that his breathing and lower extremity swelling has improved since he came in. He has no chest pain at present. No other complaints or concerns. He is scheduled for a liver biopsy tomorrow. Some conversation regarding a nuclear stress test but he believes that this was to be done as an outpatient on Tuesday. Review of Systems Review of Systems: All systems reviewed and are unremarkable except as noted in HPI and below. +ROSALES (improved) and LE edema (improved) Denies fever, chills, fatigue, headache, nasal congestion, sore throat, cough, chest pain, shortness of breath, palpitations, orthopnea, PND, abdominal pain, n/v/d, constipation, dysuria, hematuria, frequency, back pain, joint pain or swelling, easy bruising or bleeding, skin lesions or rashes. Physical Exam Physical Exam: GENERAL: 77 yo Well-developed, well-nourished WM. NAD. LUNGS: Breath sounds diminished in bases bilaterally but otherwise CTA. CARDIOVASCULAR: Regular rate and rhythm. No M/G/R. No JVD. ABDOMEN: Soft, non-tender and non-distended. BS normoactive x 4 quad. EXTREMITIES: 1-2+ edema. Non-tender. Peripheral pulses +2/4. NEUROLOGIC: A&O x3. Nonfocal PSYCHIATRIC: Cooperative. Appropriate mood and affect. SKIN: Warm, dry, intact. No rashes or lesions. Results & Data Results & Data ([facility]) Vital Signs (Past 12 Hours) Vital Signs Temp Pulse Resp BP Pulse Ox O2 Del Method 07/07/22 11:40 36.5 C 73 20 123/82 94 Room Air 07/07/22 07:45 36.4 C L 81 20 158/105 H 95 Room Air 07/07/22 04:00 36.4 C L 79 18 165/100 H 94 Room Air Laboratory Results 07/07/22 07:44 07/07/22 07:44 PG Care Time/CCT Total # of Minutes Spent Total Time Spent with Patient: Total time spent is greater than 50% in coordination of care (as documented) at patient's floor/unit and/or counseling patient: Coding Level of Care Code 32067 Subseq Hosp Care Lvl 2 Diagnoses Metastatic adenocarcinoma C79.9 Elevated troponin I level R77.8 Elevated LFTs R79.89 COPD (chronic obstructive pulmonary disease) J44.9 RICKEY (obstructive sleep apnea) G47.33 Diabetes mellitus, type II E11.9 DVT prophylaxis Z29.9
[2022-07-07] MEDS ORDERED: FUROSEMIDE 40 MG/4 ML VIAL IV ONE (17:00)
[2022-07-08] MEDS: FLUTICASONE/VILANTEROL 200/25MCG 14 PUFFS/INHALER INH SCH (07:48)
[2022-07-08] MEDS: FAMOTIDINE 20 MG TAB PO SCH (07:49)
[2022-07-08] MEDS: SPIRONOLACTONE 12.5 MG TAB PO SCH (07:49)
[2022-07-08] MEDS: ISOSORBIDE MONO EXTENDED REL 60 MG TABCR PO SCH (07:49)
[2022-07-08] MEDS: METOPROLOL TARTRATE 50 MG TAB PO SCH (07:49)
[2022-07-08] MEDS: amLODIPine BESYLATE 5 MG TAB PO SCH (07:50)
[2022-07-08] MEDS: INSULIN ASPART PER UNIT SC SCH ×2 (08:49→13:19)
[2022-07-08 08:50] LABS: Hemoglobin 16.6 g/dl (14.0-18.0); Mean Corpuscular Hemoglobin 30.7 pg (25.0-34.0); Mean Corpuscular Hgb Conc 34.6 g/dL (32.0-36.0); Mean Corpuscular Volume 88.7 fL (80.0-100.0); Mean Platelet Volume 9.9 fL (9.4-12.4); Platelet Count 189 K/uL (130-400); RDW Standard Deviation 53.5 fL (36.4-46.3); Red Blood Count 5.41 M/uL (4.63-6.08); White Blood Count 11.18 K/ul (4.8-10.8)
[2022-07-08] MEDS: LANTUS PER UNIT CHARGE SQ SCH (08:50)
[2022-07-08 09:18] LABS: Albumin Globulin Ratio 1.4 (0.9-2); Albumin Level 3.3 gm/dl (3.4-5.0); BUN Creatinine Ratio 26.7 (10-20); Bilirubin,Total 2.3 mg/dl (0.2-1.0); Calcium 8.7 mg/dl (8.5-10.1); Creatinine Clr Calc Pharmacy 125.4 ml/min; Est GFR (Non-African American) 98.4 ml/min; Globulin 2.4 gm/dl (2.5-4.0); Potassium 3.4 mmol/L (3.5-5.1); Total Protein 5.7 gm/dl (6.0-8.3)
[2022-07-08] MEDS ORDERED: POTASSIUM CHLORIDE CRTAB 20 MEQ TABCR PO ONE (09:30)
--- NOTE | 2022-07-08 09:31 | Cardiology Progress Note ---
Date of Service July 08, 2022 Assessment & Plan (1) CHF (congestive heart failure): (2) Metastatic adenocarcinoma: (3) Hypertension: (4) Hypokalemia: (5) Mass of right lung: (6) Elevated LFTs: Plan -Patient with metastatic CA in bones, liver, lung. Primary source not confirmed. -Upon admission, he found to have findings of volume overload, likely multifactorial, but consistent with HFpEF. -Echo revealed preserved LVEF. No pericardial effusion as suggestive on CT scan. Echo findings of pericardial fat pad. No wall motion abnormalities. -Treated with several doses of IV diuretic with improved SOB and improving edema. -I+O's difficult to calculate due to incontinence. -Spironolactone 12.5 mg daily added for BP support and hypokalemia. Tolerating. -supplement potassium this morning -Would benefit from ongoing diuresis, but will hold until after liver biopsy. -statin on hold due to elevated LFT's -Clopidogrel held until after liver biopsy. -Troponin trending downward since admission. Presentation does not seem suggestive of an acute coronary syndrome. -Nuclear stress test has been cancelled as an outpatient. Need to proceed with CA evaluation/biopsies. Case discussed with Dr. Bear. Will follow. Admission and Anticipated Discharge Date Admission Date: July 06, 2022 Supervising Physician Co-Signing Physician Notes Supervising Physician Attestation: I have personally performed a history and physical examination on the patient. I agree with the physician prosthetic assistant's findings and plan as documented with the following additions. Subjective: Still with mild lower extremity edema. Denies chest pain or shortness of breath. Exam: Cardiovascular: Regular rhythm, no murmurs, 1+ lower extremity, pedal edema Data: Telemetry reveals sinus rhythm in the 70s Assessment and Plan: Fluid retention, perhaps due to heart failure with preserved ejection fraction, or other with regards to systemic illness. -Discharge on furosemide 40 mg daily, potassium chloride 20 mill equivalents daily, spironolactone 12.5 mg daily, Toprol tartrate 50 mg twice daily. Pineda Bear, DO Subjective Patient resting comfortably in chair. Reports SOB has improved from admission. No chest pain overnight or this morning. Edema has improved from admission but still present. He did not receive IV furosemide this morning due to upcoming liver biopsy. No fever, cough, chills. No abdominal pain. Review of Systems Review of Systems: All systems reviewed & are unremarkable except as noted in HPI & below Physical Exam Constitutional: WD/WN, vitals as above Respiratory: normal respiratory effort Auscultation: + diminished lung sounds Cardiovascular: Rate/Rhythm: regular rate, regular rhythm and + tachycardic Heart Sounds: normal S1 and normal S2; no murmur Extremities: + edema (2+ lower extremity, pedal edema) Gastrointestinal (Abdomen): normal bowel sounds, soft, nontender, no hepatosplenomegaly Neurologic: PERRL, EOMI, accommodation nl, no face palsy, no dysarthria Psychiatric: A+Ox3, euthymic affect Results & Data ([facility]) Vital Signs (Past 12 Hours) Vital Signs Temp Pulse Resp BP Pulse Ox O2 Del Method 07/08/22 07:09 36.9 C 76 18 149/72 H 94 Room Air 07/08/22 02:52 36.4 C L 70 18 159/97 H 96 Room Air 07/07/22 23:14 36.6 C 66 18 123/80 96 Room Air Laboratory Results Cardiac Enzymes 07/08/22 Range/Units 08:30 AST 160 H (13-39) U/L CBC 07/08/22 Range/Units 08:30 WBC 11.18 H (4.8-10.8) K/ul RBC 5.41 (4.63-6.08) M/uL Hgb 16.6 (14.0-18.0) g/dl Hct 48.0 (40.1-51.0) % Plt Count 189 (130-400) K/uL Comprehensive Metabolic Panel 07/08/22 Range/Units 08:30 Sodium 143 (136-145) mmol/L Potassium 3.4 L (3.5-5.1) mmol/L Chloride 105 (98-107) mmol/L Carbon Dioxide 29 (21-32) mmol/L BUN 16 (6-23) mg/dl Creatinine 0.60 (0.6-1.4) mg/dl Glucose 148 H (70-99(Fasting)) mg/dl Calcium 8.7 (8.5-10.1) mg/dl AST 160 H (13-39) U/L ALT 283 H (7-52) U/L Alkaline Phosphatase 242 H (34-104) U/L Total Protein 5.7 L (6.0-8.3) gm/dl Albumin 3.3 L (3.4-5.0) gm/dl Intake and Output 07/07/22 07/08/22 07/08/22 22:59 06:59 14:59 Intake Total 200 / 2640 Output Total 300 / 5 300 / 1915 Balance -100 / 725 -300 / 725 Intake: Oral 200 / 2640 Output: Urine 300 / 5 300 / 1915 Other: Other Intake Source npo Weight 98.9 kg Diagnostic Findings Telemetry reviewed: NSR 70-90 bpm, occ PVC Echo report reviewed dated 07/07/22: Mild concentric LVH No regional wall motion abnormalities. LVEF 60-65% RV is normal in size and function. Aortic apolinar sclerosis moderate without significant aortic valvular stenosis. Grade I diastolic dysfunction. Doppler findings do not suggest pulm hypertension. Medications Administered Current Inpatient Medications Acetaminophen (Acetaminophen 325 Mg Tab) 650 mg PO Q4H PRN PRN Reason: Pain or Fever Stop: 08/05/22 20:15 Al Hydrox/Mg Hydrox/Simethicone (Aluminum/Magnesium Susp 30 Ml Udc) 15 ml PO Q4H PRN PRN Reason: Dyspepsia Stop: 08/05/22 20:15 Albuterol (Albuterol Hfa 8 Gm Inhaler) 2 puffs INH QID PRN PRN Reason: shortness of breath Stop: 08/05/22 20:15 Amlodipine Besylate (Amlodipine Besylate 5 Mg Tab) 2.5 mg PO QAM OSCAR Stop: 08/06/22 08:59 Last Admin: 07/08/22 07:50 Dose: 2.5 mg Dextrose (Dextrose 50% 50 Ml Syringe) 25 - 50 ml IV UD PRN; Protocol PRN Reason: Hypoglycemia Protocol Stop: 08/05/22 20:15 Famotidine (Famotidine 20 Mg Tab) 20 mg PO QAM OSCAR Stop: 08/06/22 08:59 Last Admin: 07/08/22 07:49 Dose: 20 mg Fluticasone/Vilanterol (Fluticasone/Vilanterol 200/25mcg 14 Puffs/Inhaler) 1 puffs INH DAILY OSCAR Stop: 08/06/22 08:59 Last Admin: 07/08/22 07:48 Dose: 1 puffs Glucagon (Glucagon For Inj 1 Mg Vial) 1 mg SQ UD PRN; Protocol PRN Reason: Hypoglycemia Protocol Stop: 08/05/22 20:15 Glucose (Glucose 40% Gel 15 Gm Tube) 15 - 30 gm PO UD PRN; Protocol PRN Reason: Hypoglycemia Protocol Stop: 08/05/22 20:15 Glucose (Glucose 10 Tab/Tube) 4 - 8 tab PO UD PRN; Protocol PRN Reason: Hypoglycemia Treatment Stop: 08/05/22 20:15 Insulin Aspart (Insulin Aspart Per Unit) 0 units SC ACHS OSCAR Stop: 08/05/22 20:59 Last Admin: 07/08/22 08:49 Dose: Not Given Insulin Glargine (Lantus Per Unit Charge) 20 units SQ BID OSCAR Stop: 08/05/22 20:59 Last Admin: 07/08/22 08:50 Dose: 20 units Isosorbide Mononitrate (Isosorbide Bledsoe Extended Rel 60 Mg Tabcr) 60 mg PO QAM OSCAR Stop: 08/06/22 08:59 Last Admin: 07/08/22 07:49 Dose: 60 mg Metoprolol Tartrate (Metoprolol Tartrate 50 Mg Tab) 50 mg PO BID [facility] Stop: 08/06/22 08:59 Last Admin: 07/08/22 07:49 Dose: 50 mg Miscellaneous (Carbohydrates For Hypoglycemia ) 15 - 30 gm PO UD PRN PRN Reason: Hypoglycemia Protocol Stop: 08/05/22 20:15 Ondansetron HCl (Ondansetron Inj 2 Mg/Ml 2 Ml Vial) 4 mg IV Q6H PRN PRN Reason: Nausea Stop: 08/05/22 20:15 Oxycodone HCl (Oxycodone Hcl Ir 5 Mg Tab (Immediate Release)) 10 mg PO TID PRN PRN Reason: pain Stop: 07/20/22 20:15 Last Admin: 07/07/22 20:54 Dose: 10 mg Spironolactone (Spironolactone 12.5 Mg Tab) 12.5 mg PO DAILY [facility] Stop: 08/06/22 11:44 Last Admin: 07/08/22 07:49 Dose: 12.5 mg (1) CHF (congestive heart failure) Heart failure chronicity: acute Heart failure type: diastolic Qualified Code(s): I50.31 - Acute diastolic (congestive) heart failure
--- NOTE | 2022-07-08 13:02 | Ultrasound Report ---
ULTRASOUND GUIDED CORE BIOPSY AND FINE-NEEDLE ASPIRATION OF A LEFT HEPATIC LOBE LESION CLINICAL HISTORY: Evaluate for metastatic disease. COMPARISON STUDY: CT of the abdomen and pelvis July 06, 2022. PROCEDURE: Sonography of the liver demonstrate innumerable hypoechoic lesions suggestive of metastase s. A accounts receivable representative 2.4 cm lateral segment lesion was targeted for biopsy. The procedure, risks and b enefits were discussed with the patient including the risk of bleeding, infection and injury to adjac ent structures. The patient agreed to the procedure and informed written consent was obtained. The pr ocedure was performed by Dr. Lloyd following a timeout. Skin of the upper abdomen was prepped and draped in sterile fashion and local anesthesia achieved with 1% lidocaine. Under direct ultrasound g uidance, a 22-gauge fine-needle aspiration was performed utilizing a Quique needle. A 2 cm 18-gauge core sample was then obtained. Samples were deemed preliminarily adequate by pathology. Patient anastasia rated the procedure well and no immediate complications were evident. IMPRESSION: Successful ultrasound guided 18-gauge core biopsy and fine needle aspiration of a latera l segment hepatic lesion. ACT 112: Negative or not required by law. Electronically signed by: Scott Lloyd M.D. 07/08/2022 1:01 PM
--- NOTE | 2022-07-08 13:23 | Discharge Summary ---
Date of Service July 08, 2022 Admission HPI Per Admitting Provider 77-year-old male currently being worked up for known prostate cancer with wide metastasis to spine additional lesions are seen in lung and liver unknown whether they are metastatic from the prostate or additional malignancies. The patient does have his extensive smoking history when he was in the service. Initial work-up for his PSA included an elevated CEA but negative CA 19-9 prostate biopsy showed adenocarcinoma Lina score 6 Patient is here because of multiple falls at home over the last week he has had mostly mechanical falls but today his fall was significant. His falls been preceded by some back pain could be in the area of known metastasis. His injuries are not significant mostly abrasions and contusions. Patient is noticed increasing shortness of breath of the past 3 weeks and increasing swelling of his legs over the past few days. In the emergency department he had CT angiography which ruled out pulmonary embolism pending our lower extremity Dopplers Patient previously has seen Dr. Soto in hematology oncology I did run the case by her and she requested to consider ultrasound-guided biopsy of the liver to evaluate lesions Principal Diagnosis 1. Acute on chronic HFpEF 2. Elevated LFTs with evidence of liver lesions s/p biopsy 3. Prostate cancer 4. Evidence of metastatic cancer with unknown primary 5. Hypokalemia- replaced Discharge Exam GENERAL: 77 yo Well-developed, well-nourished WM. NAD. LUNGS: Breath sounds CTAB. CARDIOVASCULAR: Regular rate and rhythm. No M/G/R. No JVD. ABDOMEN: Soft, non-tender and non-distended. BS normoactive x 4 quad. EXTREMITIES: 1+ edema. Non-tender. Peripheral pulses +2/4. NEUROLOGIC: A&O x3. Nonfocal PSYCHIATRIC: Cooperative. Appropriate mood and affect. SKIN: Warm, dry, intact. No rashes or lesions. Discharge Data Allergies Allergy/AdvReac Type Severity Reaction Status Date / Time losartan Allergy Mild face Verified 07/06/22 16:32 swelling Consultations 07/06/22 14:48 ED Decision to Admit Stat 07/06/22 16:36 Consult Cardiology Routine Ordered Studies Chest X-Ray 07/06/22 10:50 XR chest 1V portable CLINICAL HISTORY: Chest Pain TECHNIQUE: Single frontal radiograph of the chest was obtained. Comparison: Comparison is made to chest radiograph 02/03/2019 FINDINGS: No lines and tubes are seen. The cardiomediastinal silhouette is normal. Bilateral perihilar fullness is again seen. No evidence of pleural effusion or pneumothorax. IMPRESSION: Stable perihilar fullness which may represent mild pulmonary edema versus lymphadenopathy. Attention on CTA chest which has already been ordered is recommended. ACT 112: Negative or not required by law. Electronically signed by: Marciano Valdivia M.D. 07/06/2022 11:43 AM Abdomen/Pelvis CT 07/06/22 11:[address] WITH IV CONTRAST HISTORY: Acute abdominal pain falls, leg swelling, abdominal contusions TECHNIQUE: Multiaxial CT images of the abdomen and pelvis were performed following the IV administration of 115 cc of Optiray, A dose lowering technique was utilized adhering to the principles of ALARA. COMPARISON STUDY: PET CT 06/30/2022 FINDINGS: Small pericardial effusion. 10 mm irregular nodule of the basal right lower lobe, image 7 series 12. Subsegmental bibasilar atelectasis. No pneumatosis or pneumoperitoneum. Unremarkable spleen, and pancreas. Thickening of the adrenal glands is similar to 04/27/2022. Cholecystectomy. Scattered hypodense lesions of the liver suggestive of metastasis measure up to 2.7 cm and the right hepatic lobe. Marginal nodularity of the liver has progressed from the prior study. Trace perihepatic ascites. Mild nonspecific bilateral perinephric stranding. 2.1 cm cyst within the inferior pole right kidney. 9 mm indeterminate nodule in the right perinephric space is unchanged from the most recent comparison. Prostamegaly. Unremarkable urinary bladder. Atherosclerosis of the aorta. Mild periportal lymphadenopathy. No bowel obstruction or bowel wall thickening. Colonic diverticulosis. Mild colonic fecal retention. Normal appendix. 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 Epidural and neural foraminal extension of disease as previously discussed is also stable. Mild pathologic fractures of the lower thoracic spine appear unchanged. IMPRESSION: 1. Stable exam from the PET CT obtained 06/30/2022 2. Multifocal hepatic metastasis with marginal nodularity of the liver sugg estive of cirrhosis versus pseudocirrhosis with trace perihepatic ascites. 3. Mild periportal lymphadenopathy. 4. Multifocal osteolytic skeletal metastasis with pathologic fractures of the ribs and lower thoracic spine appear unchanged. 5. No bowel obstruction or bowel wall thickening. 6. Additional findings as above. ACT 112: Negative or not required by law. The above report was generated using voice recognition software. It may contain grammatical, syntax or spelling errors. Electronically signed by: Ortiz Blevins M.D. 07/06/2022 1:[address] 07/06/22 11:15 CT OF THE CERVICAL SPINE WITHOUT CONTRAST CLINICAL HISTORY: fall COMPARISON STUDY: PET/CT June 30, 2022. TECHNIQUE: Helical axial images of the cervical spine were obtained without IV contrast. Sagittal and coronal reconstructions were viewed. Automated exposure control was utilized for the study. A dose lowering technique was utilized adhering to the principles of ALARA. FINDINGS: Trace fluid within the right mastoid air cells. Straightening of the cervical lordosis is noted. No acute cervical spine fracture is noted. Moderate multilevel degenerative disc disease and facet arthrosis is present. There is no prevertebral edema. Several lytic skeletal lesions are noted. These include a 1.2 cm lytic lesion within the left articulating facet of C6. There is also a 1.5 cm lytic lesion within the left articulating facet of C7. IMPRESSION: 1. No acute cervical spine fracture or subluxation. 2. Lytic lesions within the left articular facets of C6 and C7 suggestive of metastatic disease. Multiple myeloma is also within the differential. 3. Moderate multilevel degenerative disc disease and facet arthrosis within the cervical spine. ACT 112: Negative or not required by law. Electronically signed by: Scott Lloyd M.D. 07/06/2022 1:27 PM Chest CTA 07/06/22 11:15 CHEST CTA for PULMONARY ARTERIES CT DOSE: HISTORY: Fall. Atypical chest pain. Leg swelling. TECHNIQUE: Multiaxial CT images of the chest were performed following the intravenous administration of contrast to evaluate the pulmonary arteries. Maximal intensity projection images were also obtained. A dose lowering technique was utilized adhering to the principles of ALARA. COMPARISON STUDY: Chest CTA 02/03/2019. PET CT 06/30/2022. FINDINGS: No evidence for aneurysm or dissection. Suboptimal opacification of the pulmonary arteries. However, no definite filling defects within the pulmonary arteries to suggest a pulmonary embolus. There is mild mass effect along the right central pulmonary arteries due to the lymphadenopathy. Dominant right hilar lymph node measures 2.6 cm. There is enlarged subcarinal lymph node measuring 4.3 x 1.8 cm. No left hilar lymphadenopathy. The thyroid gland enhances normally. Normal caliber esophagus. No pleural effusions. Small anterior pericardial effusion. The heart is normal in size. Please refer to same day abdomen and pelvis CT for further evaluation of the hepatic metastases. There again noted multiple focal osseous metastatic lesions seen throughout the chest resulting in pathologic fractures of the bilateral ribs. This is similar to the prior study. Some of the scattered thoracic spine lesions demonstrate cortical breakthrough with epidural involvement. However, there is no significant central canal narrowing. Subacute to chronic mild inferior endplate compression fracture at T9 is again noted. This appears to represent a pathologic fracture. There may be an additional subtle pathologic fracture the inferior plate of T11 which is age indeterminate. No pneumothorax. Emphysema again noted. No significant change in the 2.7 cm right upper lobe suprahilar mass. There are few satellite nodules extending from a right upper lobe lesion. The irregular 10 mm nodule within the right lower lobe on image 199 is also unchanged. This is concerning for a metastatic focus. A few small subpleural nodules within the left upper lobe anteriorly with the largest measuring 6 mm. These are best seen on image 108. IMPRESSION: 1. No evidence for a pulmonary embolus. 2. Redemonstration of the spiculated 2.7 cm right upper lobe mass with additional scattered pulmonary nodules consistent with a bronchogenic malignancy. 3. Right hilar and subcarinal lymphadenopathy is again noted. 4. Multiple scattered osteoblastic metastatic lesions seen throughout the chest resulting in pathologic fractures of the bilateral ribs and thoracic spine as described above. This is similar to the prior study. 5. Some of the osseous metastatic foci within the thoracic spine demonstrate epidural involvement without significant central canal narrowing. 6. Hepatic metastatic disease again noted. 7. Additional findings as described above. ACT 112: Negative or not required by law. Electronically signed by: Nathanael Jimenez M.D. 07/06/2022 1:[address] 07/06/22 11:15 CT head/brain wo con CLINICAL HISTORY: fall Technique: Contiguous axial CT images of the head were acquired from the base of the skull to the vertex without intravenous contrast administration. Images were viewed in brain, subdural and bone windows. Automated dose lowering techniques and/or adjustment according to patient size were utilized for this exam. Comparison: None available at the time of this dictation. Findings: Areas of decreased attenuation are present in the periventricular and subcortical white matter bilaterally consistent with small vessel ischemic disease. Generalized cerebral atrophy with commensurate enlargement of the ventricles, sulci, and cisterns is also present. There is no acute intracranial hemorrhage or evidence of acute territorial infarction. No shift of the midline structures, mass effect, or extra-axial abnormalities are shown. Atherosclerotic calcifications are present in the intracranial segments of the internal carotid arteries. Imaged portions of the paranasal sinuses and mastoid air cells are clear. The orbits appear normal. There are no acute fractures of the calvaria or scalp swelling. Impression: No acute intracranial hemorrhage, skull fractures, or scalp swelling. ACT 112: Negative or not required by law. Electronically signed by: Marciano Valdivia M.D. 07/06/2022 1:[address] 07/06/22 11:40 CT lumbar spine w con CLINICAL HISTORY: falls, lytic lesions TECHNIQUE: Multidetector row helical CT of the lumbar spine was performed without administration of intravenous contrast. Coronal and sagittal reformations were obtained. Automated dose lowering techniques and/or adjustment according to patient size were utilized for this exam. Comparison: Comparison is made to CT abdomen pelvis 04/27/2022 FINDINGS: For counting purposes, the last complete intervertebral disc space is considered L5-S1. There is mild loss of height anteriorly at T11. This is age-indeterminate but favored to be chronic. No definite acute fracture is seen. Multiple lytic lesions are seen throughout the spine. Prominent lytic foci include a 28 mm lytic lesion in the left iliac wing, a 25 mm lesion in the left sacrum, and a 18 mm lytic lesion in the left anterior L5 vertebral body. There is also a 21 mm right iliac lytic focus which previously measured 11 mm. Mild degenerative changes are seen throughout the spine. Vertebral body alignment is within normal limits. Bilateral adrenal thickening is seen. Please see CT abdomen pelvis performed same day for soft tissue findings. IMPRESSION: Interval significant enlargement of multiple lytic lesions. Several demonstrate cortical erosion. ACT 112: Negative or not required by law. Electronically signed by: Marciano Valdivia M.D. 07/06/2022 2:[address] 07/06/22 11:40 CT thoracic spine w con CLINICAL HISTORY: falls, lytic lesions. Back pain. COMPARISON STUDY: PET CT 06/30/2022. FINDINGS: Multiple scattered osteolytic metastatic lesions seen within the thoracic spine which are similar to the prior study. There is a mild inferior endplate pathologic compression fracture T9, unchanged. This is likely subacute. There is a nondisplaced inferior endplate compression fracture at T11 which appears acute to subacute. A few of these osseous metastatic foci demonstrate cortical breakthrough with epidural involvement without significant stenosis. This is most pronounced at the T6 level. Multiple osteolytic/destructive lesions also noted within the ribs. Mild dextroscoliosis scoliosis of the thoracic spine. Please see report on the same day chest CT for further evaluation. IMPRESSION: 1. Multiple scattered osteoblastic metastatic lesions again seen throughout the thoracic spine and ribs. 2. There is a subacute mild inferior endplate compression fracture at T9, unchanged. 3. There is a nondisplaced inferior endplate compression fracture at T11 which appears to be acute to subacute. This results in minimal anterior wedging. No associated retropulsion. 4. A few of the thoracic spine metastatic foci demonstrate epidural involvement without significant central canal stenosis. ACT 112: Negative or not required by law. Electronically signed by: Nathanael Jimenez M.D. 07/06/2022 1:43 PM Venous Doppler Study 07/07/22 07:28 BILATERAL LOWER EXTREMITY VENOUS DOPPLER HISTORY: Bilateral lower extremity swelling. COMPARISON STUDY: None. FINDINGS: There is normal compressibility, flow, and augmentation within the bilateral lower extremity deep venous systems. IMPRESSION: No DVT within the right or left lower extremity. ACT 112: Negative or not required by law. Electronically signed by: Nathanael Jimenez M.D. 07/07/2022 10:11 AM Liver Biopsy Ultrasound 07/08/22 13:00 ULTRASOUND GUIDED CORE BIOPSY AND FINE-NEEDLE ASPIRATION OF A LEFT HEPATIC LOBE LESION CLINICAL HISTORY: Evaluate for metastatic disease. COMPARISON STUDY: CT of the abdomen and pelvis July 06, 2022. PROCEDURE: Sonography of the liver demonstrate innumerable hypoechoic lesions suggestive of metastases. A account development representative 2.4 cm lateral segment lesion was targeted for biopsy. The procedure, risks and benefits were discussed with the patient including the risk of bleeding, infection and injury to adjacent structures. The patient agreed to the procedure and informed written consent was obtained. The procedure was performed by Dr. Lloyd following a timeout. Skin of the upper abdomen was prepped and draped in sterile fashion and local anesthesia achieved with 1% lidocaine. Under direct ultrasound guidance, a 22- gauge fine-needle aspiration was performed utilizing a Quique needle. A 2 cm 18-gauge core sample was then obtained. Samples were deemed preliminarily adequate by pathology. Patient tolerated the procedure well and no immediate complications were evident. IMPRESSION: Successful ultrasound guided 18-gauge core biopsy and fine needle aspiration of a lateral segment hepatic lesion. ACT 112: Negative or not required by law. Electronically signed by: Scott Lloyd M.D. 07/08/2022 1:01 PM Hospital Course (1) Metastatic adenocarcinoma: Pt has widely metastatic lesions, given smoking history some concern of 2 primaries, prostate is confirmed adenocarcinoma, underwent bx of liver lesion. - Previously seen by Dr. Soto in April 2022, was still pending further w/u at that time and was to f/u in 1 month to start treatment based on work up - Does not appear that he ever started any treatment for prostate ca which was confirmed by biopsy - Pt now w/ liver and lung lesions (in addition to lytic bone lesions) calcium is normal, US liver bx ordered, held aspirin and plavix - underwent FNA bx of liver lesion 07/08, results pending - Will need to f/u with Dr. Soto in office to review results of biopy and d etermine best course of treatment - Can resume ASA and Plavix (2) Elevated troponin I level: - Patient with elevated troponin level no overt complaints of chest pain but does have dyspnea and progressive swelling. - Last echo from 3 years ago showed preserved EF. - Patient however has a history of CAD which has been treated by dual antiplatelets isosorbide and metoprolol - Echo ordered, discussed results with Dr. Bear, pt with preserved EF and no new WMA - Suspect that his mildly elevated HS trop is due to myocardial demand ischemia in setting of acute on chronic HFpEF which was treated with several doses of IV Lasix - No plan for stress test at this time - Started on Spironolactone for BP/potassium support, will dc home on Lasix 40mg daily + Potassium Chloride 20 meq daily + Spironolactone 12.5mg daily - Appears that Metoprolol tartrate was also increased from 25mg to 50mg BID, continue new dose, new rx sent - Follow up labs to be drawn in 3-5 days, will f/u with cardiology as outpatient (3) Elevated LFTs: - Patient with elevated LFTs, known metastatic disease w/ uncertain primary - Liver biopsy scheduled for 07/08 - LFTs slow trending down, continue holding statin therapy as outpatient - Follow up labs in 3-5 days to reassess LFTs (4) COPD (chronic obstructive pulmonary disease): - Currently COPD is stable continue budesonide/formoterol and PRN Albuterol (5) RICKEY (obstructive sleep apnea): - Offeredd inpatient CPAP (6) Diabetes mellitus, type II: - Will have on a carbohydrate conservative low-salt diet and have basal/bolus insulin - Can resume his home regimen as prescribed upon d/c Plan At this time, pt is medically and hemodynamically stable for discharge. He is improved from a volume standpoint, plan to dc home on diuretics as outlined above. F/u with cardiology, oncology, and pcp. Follow up labs in 3-5 days. New rx's sent to preferred pharmacy on file. Plan has been d/w Dr. Eid who has also seen and evaluated this patient and agrees with aforementioned. Total Time Total Time Spent Total Time Spent (In Minutes): >30 minutes Discharge Plan Discharge Items Patient Disposition: Home - Self-Care Reason For Visit: FALL, LOWER EXTREMITY EDEMA, METASTATIC CANCER Discharge Diagnosis: excess fluid in legs and lungs cancer of prostate evidence of cancer in liver, bones, and lungs Activity: Resume your previous activity Non-emergency contact: Primary Care Provider Call non-emergency contact if: you have any medication questions and your symptoms worsen Follow-up/Referrals: Kirsten Arce MD [Primary Care Provider] - 07/09/22 10:30 am ([facility]) Pineda Bear DO [Synthetic Resin Operator] - 07/22/22 10:45 am (please see Dr. Bear at the [facility] location) Roxann Soto MD [Physician] - 07/13/22 11:10 am Diet: Carb Consistent or DM2 Fluids: 2000ml (8 cups) Ambulatory Orders: Comprehensive Metabolic Panel (Routine) Timeframe: 3 Days Location: Determined by Patient Ordered By: Vale Knight Addtl Attending Provider Instructions: You were hospitalized due to increased lower extremity swelling with shortness of breath. This was felt to be related to a build of up fluid in your legs and lungs. You were able to pee off the excess fluid after receiving a medication called Lasix through your IV which works in the kidney to help rid your body of excess fluid. You also underwent a biopsy of your liver due to findings that are concerning for cancer. You also have evidence of cancer in your lungs and bones. While it is known that you have prostate cancer, these other sites are not yet clear where they are originating from. You will need to schedule a follow up with Dr. Soto (oncology) to determine further treatment plan for your cancer. This will be better determined after the results of your liver biopsy are available. In the meantime, you will need to follow up with your primary care provider, Dr. Arce, within 1 week of discharge. You have labs that will need to be drawn and will be sent to your primary care provider as well as your boat operator. You should receive a paper copy of the lab order prior to your discharge. Please have labs done within 3 to 5 days after your discharge from the hospital. You will also be arranged to follow up appointment with Dr. Bear. Please keep this appointment as scheduled and get your bloodwork prior to your appointment. Take all of your medications as outlined below. You will have two medications added to your medication list: Lasix 40mg, take once daily in the morning, Spironolactone 12.5mg daily in the morning, and Potassium 20meq, take one tablet daily in the morning. Your Metoprolol has been increased from 25mg twice a day to 50mg twice a day. All prescriptions have been sent to your pharmacy on file. If you have any questions following your discharge, please call the nonemergency number listed on your paperwork. In the event of a medical emergency, call 911. Pending Studies at Discharge: Yes Studies:: liver biopsy Stand-Alone Forms: [facility], Smoking Cessation Medications and DC Order Prescriptions: New spironolactone 25 mg Tablet 12.5 mg PO DAILY Qty: 30 0RF metoprolol tartrate 50 mg Tablet 50 mg PO BID Qty: 60 0RF furosemide [Lasix] 40 mg tablet 40 mg PO DAILY Qty: 30 0RF potassium chloride 20 mEq tablet extended release 20 meq PO DAILY Qty: 30 0RF Continued oxycodone 10 mg tablet 10 mg PO TID PRN (Reason: pain) Qty: 25 0RF amlodipine 2.5 mg tablet 2.5 mg PO QAM clopidogrel 75 mg tablet 75 mg PO QAM famotidine 20 mg tablet 20 mg PO QAM metformin 1,000 mg tablet 1,000 mg PO BID Qty: 60 2RF insulin glargine 100 unit/mL solution 30 unit subcut HS Rx Instructions: and 4units in AM isosorbide mononitrate 30 mg Tablet Extended Release 24 Hr 60 mg PO QAM albuterol sulfate 90 mcg/actuation Hfa Aerosol Inhaler 2 puff INHALATION QID PRN (Reason: shortness of breath) budesonide-formoterol 160-4.5 mcg/actuation Hfa Aerosol Inhaler 2 puff INHALATION BID aspirin 81 mg Tablet,Chewable 81 mg PO QAM glipizide 10 mg Tablet 10 mg PO BID cyanocobalamin (vitamin B-12) 1,000 mcg Tablet 1,000 mcg PO QAM empagliflozin 10 mg Tablet 10 mg PO QAM Medical Marijuana 1 vp hr diversity inhalation [id number] Discontinued atorvastatin 80 mg Tablet 80 mg PO HS metoprolol tartrate 25 mg Tablet 25 mg PO BID acetaminophen-codeine 300-30 mg tablet 1 tab PO Q12H PRN (Reason: pain) Qty: 9 0RF Discharge Orders: Discharge Order (Routine); Ordered 07/08/22 Ordered By: Vale Scott/Other Patient Handouts: Managing Type 2 Diabetes, Special Foot Care for Diabetes Admission Data Admit Date/Time: 07/06/22 16:19 Attending Provider: Neal Eid Admit Provider: Florencio Woodruff Primary Care Provider: Kirsten Arce Other Providers: Florencio Woodruff ; Pineda Bear ; [facility] Other Interventions: Discharge Summary Assessment (RN) Last Done: 07/08/22 16:07 Supervising Physician Co-Signing Physician Notes I personally examined the patient and verified all vogel points of history and ex am, discussed case, and agree with decision making with Faby Knight pa-c Feeling okay feels up to going home Vitals noted. No distress. Breathing unlabored. No focal neurodeficits Biopsy pendingstable for home. Close outpatient follow-up. Otherwise as above Coding Level of Care Code D/C DAY MANAGEMENT >30 MINS Diagnoses Metastatic adenocarcinoma C79.9 Elevated troponin I level R77.8 Elevated LFTs R79.89 COPD (chronic obstructive pulmonary disease) J44.9 RICKEY (obstructive sleep apnea) G47.33 Diabetes mellitus, type II E11.9
--- NOTE | 2022-07-08 14:40 | Ultrasound Report ---
ULTRASOUND GUIDED CORE BIOPSY AND FINE-NEEDLE ASPIRATION OF A LEFT HEPATIC LOBE LESION CLINICAL HISTORY: Evaluate for metastatic disease. COMPARISON STUDY: CT of the abdomen and pelvis July 06, 2022. PROCEDURE: Sonography of the liver demonstrate innumerable hypoechoic lesions suggestive of metastase s. A safety representative 2.4 cm lateral segment lesion was targeted for biopsy. The procedure, risks and b enefits were discussed with the patient including the risk of bleeding, infection and injury to adjac ent structures. The patient agreed to the procedure and informed written consent was obtained. The pr ocedure was performed by Dr. Lloyd following a timeout. Skin of the upper abdomen was prepped and draped in sterile fashion and local anesthesia achieved with 1% lidocaine. Under direct ultrasound g uidance, a 22-gauge fine-needle aspiration was performed utilizing a Quique needle. A 2 cm 18-gauge core sample was then obtained. Samples were deemed preliminarily adequate by pathology. Patient anastasia rated the procedure well and no immediate complications were evident. IMPRESSION: Successful ultrasound guided 18-gauge core biopsy and fine needle aspiration of a latera l segment hepatic lesion. ACT 112: Negative or not required by law. Electronically signed by: Scott Lloyd M.D. 07/08/2022 1:01 PM
== END 2022-07-08 16:48 | disposition home or self-care (01) | DRG 291 ==
LOC: ED 10:39 → 4W 16:19 → SUATTDRO 16:19 → 4W 19:49

== ENCOUNTER 2022-07-17 22:47 | Inpatient (IN) ==
[2022-07-17] MEDS ORDERED: SODIUM CHLORIDE 0.9% 500 ML IV ONE (23:23)
--- NOTE | 2022-07-17 23:38 | Emergency Department Note ---
Impression & Plan Metastatic disease, Transaminitis, Recurrent falls, Elevated troponin, Generalized weakness, Hyperglycemia ED Provider Note NAME: MARIA ESTHER TORRES AGE: 77 SEX: M ARRIVES VIA: Ambulance INFORMANT: Patient ED PROVIDER(S): Epifanio Springer MD CHIEF COMPLAINT: weakness, falls PLAN: Disposition: Admit MEDICAL DECISION MAKING: The patient is a pleasant 77-year-old gentleman with a past medical history of metastatic prostate cancer with metastasis to spine, lung and liver which was recently diagnosed and has yet to undergo treatment who presents to the emegency department from home where he lives alone for generalized weakness with recurrent falls over the past week. He reports today he was unable to get up and thinks maybe this is why he was sent to the hospital. He has home health aides twice a week per EMS report. He reports feeling feverish, cough, nauseated but not pain or diarrhea. He reports he is on ASA and Plavix but denies any blood thinners otherwise. He has bruising across his abdomen which she reports is from different falls throughout the week. He reports his left flank is the most painful. The patient was recent admitted to this facility from 07/06-07/08 for weakness and recurrent falls. On arrival, the patient is slightly somnolent but alert, awake and oriented, afebrile with stable vital signs. He has dry mucous membranes with also 3+ pitting edema/third spacing. He has some mild scleral icterus and jaundice. EKG without overt acute ischemia. WBC 12.6K nonspecific. H/H within normal limits. Platelets 90K decreased from prior. VBG with pH of 7.46 and otherwise unremarkable. Glucose 400s however Chemistry without metabolic acidosis. BUN was increased at 27. LFTs are uptrending with total bilirubin 10 and direct bilirubin 5.6 with AST, ALT and alk phos in the 400s. High-sensitivity troponin 35.5, nonspecific. CPK 420. Lipase is elevated at 300. UA without convincing evidence of infection. CT of the head, C-spine, chest and abdomen pelvis were performed. Per preliminary stat read review CT of the head without acute abnormalities. CT of the C-spine demonstrates evidence of metastatic disease without fracture. CT of the chest demonstrates pulmonary metastases as well as diffuse osseous me tastases. CT of the abdomen pelvis demonstrates further metastases and question of indeterminate airspace opacity of the right lower lobe. Appreciate consultation/evaluation for admission by Dr. Woodruff [facility] [place] hospitalist. Further management per admitting team. Triage Nursing notes reviewed and agree them. Prior medical records reviewed Vital Signs: reviewed and remarkable for no significant abnormalities Differential diagnosis: Infection, dehydration, metabolic abnormality, hypo/hyperglycemia, electrolyte disturbance, anemia, hypoxia, cardiac sources, intracerebral event, toxicologic, neurologic, as well as other pathologies. ER treatment provided: See below. Diagnostics interpreted by me: ECG: Sinus rhythm, 80 bpm, no ectopy, no overt ST elevation or depression, QTC 449, QRS 78. Cardiac Monitoring: An order for continuous cardiac monitoring was placed and demonstrated sinus rhythm, 80 bpm, no ectopy, Laboratory studies: See below Imaging studies: See below Consultation(s): Dr. Woodruff [facility] [place] HPI: The patient is a pleasant 77-year-old gentleman with a past medical history of metastatic prostate cancer with metastasis to spine, lung and liver which was recently diagnosed and has yet to undergo treatment who presents to the emegency department from home where he lives alone for generalized weakness with recurrent falls over the past week. He reports today he was unable to get up and thinks maybe this is why he was sent to the hospital. He has home health aides twice a week per EMS report. He reports feeling feverish, cough, nauseated but not pain or diarrhea. He reports he is on ASA and Plavix but denies any blood thinners otherwise. He has bruising across his abdomen which she reports is from different falls throughout the week. He reports his left flank is the most painful. The patient was recent admitted to this facility from 07/06-07/08 for weakness and recurrent falls. ROS: See above HPI for pertinent positives & negatives. A total of 10 systems reviewed and were otherwise negative. VITALS:See Below PHYSICAL EXAMINATION: GENERAL: Mildly somnolent but awake, alert, acute on chronically ill-appearing, in no distress HENT: Normocephalic, atraumatic. Oropharynx with dry mucous membranes and otherwise unremarkable. EYES: Normal conjunctiva. Sclera mildly icteric. NECK: Supple. No nuchal rigidity. FROM. No JVD. RESPIRATORY: Diminished at the bases, otehrwise clear to auscultation. CARDIAC: Regular rate, normal rhythm. Extremities warm and well perfused. Pulses equal. ABDOMEN: Distended but soft. Subacute ecchymosis of bilateral flanks. Mild left tenderness to palpation. No rebound or guarding. No masses. RECTAL: Deferred. MUSCULOSKELETAL: Chest examination reveals no tenderness. The back is symmetrical on inspection without obvious abnormality. There is no CVA tenderness to palpation. No joint edema. LOWER EXTREMITIES: Calves are equal size bilaterally and non-tender. 3+ pitting edema. No discoloration. NEURO:No focal sensory or motor deficits noted. Generalized weakness. SKIN: No rash. Moderate jaundice noted. Epifanio Springer MD Past Med/Surg History Medical History (Updated 07/18/22 @ 17:56 by Epifanio Springer MD) CAD (coronary artery disease) Chronic obstructive pulmonary disease WELL CONTROLLED PER PATIENT Diabetes mellitus, type II IDDM Fusion of spine 1993 THORACIC AREA GERD (gastroesophageal reflux disease) UNDER CONTROL HLD (hyperlipidemia) HTN (hypertension) Kidney stones PASSED ON OWN Medical marijuana use Myocardial Infarction JANUARY 2019 FOLLOWS WITH [facility] [place] (obstructive sleep apnea) Osteoarthritis Sleep apnea CPAP Surgical History H/O removal of cyst FOREHEAD, THIGH, HIP> ALL BENIGN History of cholecystectomy History of colonoscopy History of esophagogastroduodenoscopy (EGD) History of left cataract surgery History of tonsillectomy History of tooth extraction Hx of angioplasty NO STENTS JANUARY 2019 FOLLOWING [place]> [facility] Hx of surgical procedure REMOVAL OF METAL FROM LEFT LEG OVER 10 YRS AGO Family History Sister Breast cancer Grandfather (Paternal) Myocardial infarction Uncle Myocardial infarction Father Myocardial infarction Brother Myocardial infarction Family/Other Myocardial infarction cousin Other Coronary heart disease Denies family history of Ovarian cancer Prostate cancer Colorectal cancer Social History Smoking Status: Former smoker Second Hand Exposure: No; Hx Alcohol Use: No Hx Substance Use: No Preferred Language: Uzbek Communication Ability: Effective 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 Beliefs That Will Affect Care: None marital status: Current Living Situation: Alone current occupational status: retired Other Information That Helps Us Care for You: No Feels Safe at Home: Yes Safety Concerns: Feels Safe At This Time caffeine: Yes (coffee) Dental Care, Regularly: No Physical Activity Frequency: 3-4 Times per Week Physical Activity Frequency Comment: walking the dog Seatbelt Use: always Sunscreen Use: No Assistive Devices: Denture - Upper, Denture - Lower and Glasses Allergies Allergies Allergy/AdvReac Type Severity Reaction Status Date / Time losartan Allergy Mild face Verified 07/17/22 23:37 swelling Home Meds Home Medications Medication Instructions Recorded Confirmed albuterol sulfate 90 mcg/actuation 2 puff inhalation QID PRN 02/03/19 07/18/22 aerosol inhaler shortness of breath aspirin 81 mg chewable tablet 81 mg PO QAM 02/03/19 07/18/22 budesonide-formoterol HFA 160 2 puff inhalation BID 02/03/19 07/18/22 mcg-4.5 mcg/actuation aerosol inhaler isosorbide mononitrate 30 mg 60 mg PO QAM 02/03/19 07/18/22 tablet,extended release 24 hr amlodipine 2.5 mg tablet 2.5 mg PO QAM 12/06/19 07/18/22 clopidogrel 75 mg tablet 75 mg PO QAM 12/06/19 07/18/22 famotidine 20 mg tablet 20 mg PO QAM 12/06/19 07/18/22 Medical Marijuana 1 vp information technology inhalation [id number] 06/04/20 07/17/22 cyanocobalamin (vitamin B-12) 1,000 mcg PO QAM 06/04/20 07/18/22 1,000 mcg tablet glipizide 10 mg tablet 10 mg PO BID 06/04/20 07/18/22 insulin glargine 100 unit/mL 30 unit subcut HS 06/16/20 07/18/22 subcutaneous solution Previous Rx's Medication Instructions Recorded metformin 1,000 mg tablet 1,000 mg PO BID #60 tabs 06/16/20 oxycodone 10 mg tablet 10 mg PO TID PRN pain #25 tabs 06/30/22 furosemide 40 mg tablet (Lasix) 40 mg PO DAILY #30 tabs 07/08/22 metoprolol tartrate 50 mg tablet 50 mg PO BID #60 tabs 07/08/22 potassium chloride 20 mEq 20 meq PO DAILY #30 tabs 07/08/22 tablet,extended release spironolactone 25 mg tablet 12.5 mg PO DAILY #30 tabs 07/08/22 Results & Data (ED) Vital Signs Vital Signs - 24 hr 07/17/22 22:38 07/17/22 23:20 07/17/22 23:04 Temperature 36.6 C Temperature Source Oral Pulse Rate 82 Pulse Rate from SpO2 Sensor Respiratory Rate 20 Respiratory Effort / Characteristics Non-Labored Respiratory Depth Normal Blood Pressure 143/90 H Blood Pressure Mean 107 Pulse Oximetry 94 94 94 Oxygen Delivery Method Room Air Room Air Room Air Sepsis Recent Fever Within 48 Hours No Sepsis New/Unexplained Change in Mental Status No Sepsis Action Taken by Nursing No Action Required 07/17/22 23:10 07/17/22 23:28 07/17/22 23:28 Temperature Temperature Source Pulse Rate 81 82 Pulse Rate from SpO2 Sensor 82 82 Respiratory Rate 22 25 H Respiratory Effort / Characteristics Respiratory Depth Blood Pressure 143/90 H Blood Pressure Mean 107 Pulse Oximetry 94 94 Oxygen Delivery Method Sepsis Recent Fever Within 48 Hours Sepsis New/Unexplained Change in Mental Status Sepsis Action Taken by Nursing 07/17/22 23:30 07/17/22 23:30 07/18/22 00:00 Temperature Temperature Source Pulse Rate 83 92 H Pulse Rate from SpO2 Sensor 83 93 H Respiratory Rate 27 H 18 Respiratory Effort / Characteristics Respiratory Depth Blood Pressure 139/85 Blood Pressure Mean 103 Pulse Oximetry 97 93 Oxygen Delivery Method Sepsis Recent Fever Within 48 Hours Sepsis New/Unexplained Change in Mental Status Sepsis Action Taken by Nursing 07/18/22 00:01 07/18/22 00:01 07/18/22 00:30 Temperature Temperature Source Pulse Rate 89 79 Pulse Rate from SpO2 Sensor 89 Respiratory Rate 28 H 23 Respiratory Effort / Characteristics Respiratory Depth Blood Pressure 122/98 Blood Pressure Mean 106 Pulse Oximetry 95 Oxygen Delivery Method Sepsis Recent Fever Within 48 Hours Sepsis New/Unexplained Change in Mental Status Sepsis Action Taken by Nursing 07/18/22 01:00 07/18/22 01:15 07/18/22 01:15 Temperature Temperature Source Pulse Rate 79 92 H Pulse Rate from SpO2 Sensor Respiratory Rate 24 23 Respiratory Effort / Characteristics Respiratory Depth Blood Pressure 131/90 Blood Pressure Mean 103 Pulse Oximetry Oxygen Delivery Method Sepsis Recent Fever Within 48 Hours Sepsis New/Unexplained Change in Mental Status Sepsis Action Taken by Nursing 07/18/22 01:39 07/18/22 01:43 07/18/22 01:43 Temperature Temperature Source Pulse Rate 100 H 91 H Pulse Rate from SpO2 Sensor 88 Respiratory Rate 20 23 Respiratory Effort / Characteristics Respiratory Depth Blood Pressure 153/100 H Blood Pressure Mean 117 Pulse Oximetry 95 Oxygen Delivery Method Sepsis Recent Fever Within 48 Hours Sepsis New/Unexplained Change in Mental Status Sepsis Action Taken by Nursing 07/18/22 02:00 Temperature Temperature Source Pulse Rate 106 H Pulse Rate from SpO2 Sensor Respiratory Rate 20 Respiratory Effort / Characteristics Respiratory Depth Blood Pressure 134/67 Blood Pressure Mean 89 Pulse Oximetry 93 Oxygen Delivery Method Room Air Sepsis Recent Fever Within 48 Hours Sepsis New/Unexplained Change in Mental Status Sepsis Action Taken by Nursing Laboratory Data Attestation: I reviewed the patient's lab results. Result diagrams: 07/18/22 01:07 07/18/22 04:53 Lab Results 07/17/22 07/17/22 07/17/22 Range/Units 00:36 00:36 00:36 WBC RBC Hgb Hct MCV MCH MCHC RDW Std Deviation RDW Coeff of Jatinder Plt Count MPV Immature Gran % (Auto) Neut % (Auto) Lymph % (Auto) [place] % (Auto) Eos % (Auto) Baso % (Auto) Neut # (Auto) Lymph # (Auto) [place] # (Auto) Eos # (Auto) Baso # (Auto) Immature Gran # (Auto) Absolute Nucleated RBC Nucleated RBC % (auto) Neutrophils % (Manual) Band Neutrophils % Lymphocytes % (Manual) Prolymphocyte % Reactive Lymphs % (Man) Monocytes % (Manual) Eosinophils % (Manual) Basophils % (Manual) Metamyelocytes % (Man) Myelocytes % (Man) Promyelocytes % (Man) Blast Cells % (Manual) Plasma Cell % (Manual) Other Cells % Nucleated RBC % Neutrophils # (Manual) Band Neutrophils # Total Absolute Neuts Lymphocytes # (Manual) Prolymphocyte # Reactive Lymphs # Total Abs Lymphocytes Monocytes # (Manual) Eosinophils # (Manual) Basophils # (Manual) Metamyelocytes # (Man) Myelocytes # (Manual) Promyelocytes # (Man) Blast Cells # (Man) Plasma Cell # (Manual) Other Cells # Nucleated RBCs # (Man) Hypersegmented Neuts Hyposegmented Neuts Hypogranular Neuts Large Granular Lymphs # Lrg Granular Lymphs Hairy Cells Smudge Cells Toxic Granulation Toxic Vacuolation Dohle Bodies Melissa Rods Platelet Estimate Hypogranular Platelets Clumped Platelets Giant Platelets Platelet Satelliting RBC Morphology Polychromasia Hypochromasia Poikilocytosis Basophilic Stippling Anisocytosis Microcytosis Macrocytosis Spherocytes Pappenheimer Bodies Sickle Cells Target Cells Tear Drop Cells Ovalocytes Stomatocytes [place] Bodies Echinocytes Acanthocytes (Spur) Rouleaux RBC Agglutinates Schistocytes Sezary Cell PT 12.8 H (9.0-12.0) Seconds INR 1.2 H (0.9-1.1) VBG pH (7.36-7.41) VBG pCO2 (38-50) mmHg VBG pO2 mmHg VBG HCO3 mmol/L VBG O2 Saturation % VBG Base Excess mEq/L Sodium (136-145) mmol/L Potassium (3.5-5.1) mmol/L Chloride (98-107) mmol/L Carbon Dioxide (21-32) mmol/L Anion Gap (3-11) BUN (6-23) mg/dl Creatinine (0.6-1.4) mg/dl Est Cr Clr Drug Dosing ml/min Est GFR ( Amer) ml/min Est GFR (Non-Af Amer) ml/min BUN/Creatinine Ratio (10-20) Glucose (70-99(Fasting)) mg/dl POC Glucose (70-99) mg/dl Lactate Calcium (8.5-10.1) mg/dl Phosphorus (2.5-4.9) mg/dl Magnesium (1.7-2.4) mg/dl Total Bilirubin (0.2-1.0) mg/dl Direct Bilirubin 5.6 H (0-0.2) mg/dl AST (13-39) U/L ALT (7-52) U/L Alkaline Phosphatase (34-104) U/L Ammonia (18-72) umol/L Total Creatine Kinase 420 H (30-223) U/L Troponin I High Sens (0-20) pg/ml Total Protein (6.0-8.3) gm/dl Albumin (3.4-5.0) gm/dl Globulin (2.5-4.0) gm/dl Albumin/Globulin Ratio (0.9-2) Lipase (11-82) U/L Procalcitonin 3.27 H (0-0.5) ng/ml TSH (0.300-4.500) uIu/ml Urine Color Urine Appearance (Clear) Urine pH (4.5-7.5) Ur Specific [place] (1.000-1.030) Urine Protein (Negative) Urine Glucose (UA) (Negative) Urine Ketones (Negative) Urine Blood (Negative) Urine Nitrite (Negative) Urine Bilirubin (Negative) Urine Urobilinogen (Negative) Ur Leukocyte Esterase (Negative) SARS-CoV-2, RNA, NAAT (NEGATIVE) Blood Parasites ID Blood Type Antibody Screen 07/17/22 07/17/22 07/17/22 Range/Units 22:58 23:21 23:21 WBC Cancelled RBC Cancelled Hgb Cancelled Hct Cancelled MCV Cancelled MCH Cancelled MCHC Cancelled RDW Std Deviation Cancelled RDW Coeff of Jatinder Cancelled Plt Count Cancelled MPV Cancelled Immature Gran % (Auto) Cancelled Neut % (Auto) Cancelled Lymph % (Auto) Cancelled [place] % (Auto) Cancelled Eos % (Auto) Cancelled Baso % (Auto) Cancelled Neut # (Auto) Cancelled Lymph # (Auto) Cancelled [place] # (Auto) Cancelled Eos # (Auto) Cancelled Baso # (Auto) Cancelled Immature Gran # (Auto) Cancelled Absolute Nucleated RBC Cancelled Nucleated RBC % (auto) Cancelled Neutrophils % (Manual) Cancelled Band Neutrophils % Cancelled Lymphocytes % (Manual) Cancelled Prolymphocyte % Cancelled Reactive Lymphs % (Man) Cancelled Monocytes % (Manual) Cancelled Eosinophils % (Manual) Cancelled Basophils % (Manual) Cancelled Metamyelocytes % (Man) Cancelled Myelocytes % (Man) Cancelled Promyelocytes % (Man) Cancelled Blast Cells % (Manual) Cancelled Plasma Cell % (Manual) Cancelled Other Cells % Cancelled Nucleated RBC % Cancelled Neutrophils # (Manual) Cancelled Band Neutrophils # Cancelled Total Absolute Neuts Cancelled Lymphocytes # (Manual) Cancelled Prolymphocyte # Cancelled Reactive Lymphs # Cancelled Total Abs Lymphocytes Cancelled Monocytes # (Manual) Cancelled Eosinophils # (Manual) Cancelled Basophils # (Manual) Cancelled Metamyelocytes # (Man) Cancelled Myelocytes # (Manual) Cancelled Promyelocytes # (Man) Cancelled Blast Cells # (Man) Cancelled Plasma Cell # (Manual) Cancelled Other Cells # Cancelled Nucleated RBCs # (Man) Cancelled Hypersegmented Neuts Cancelled Hyposegmented Neuts Cancelled Hypogranular Neuts Cancelled Large Granular Lymphs Cancelled # Lrg Granular Lymphs Cancelled Hairy Cells Cancelled Smudge Cells Cancelled Toxic Granulation Cancelled Toxic Vacuolation Cancelled Dohle Bodies Cancelled Melissa Rods Cancelled Platelet Estimate Cancelled Hypogranular Platelets Cancelled Clumped Platelets Cancelled Giant Platelets Cancelled Platelet Satelliting Cancelled RBC Morphology Cancelled Polychromasia Cancelled Hypochromasia Cancelled Poikilocytosis Cancelled Basophilic Stippling Cancelled Anisocytosis Cancelled Microcytosis Cancelled Macrocytosis Cancelled Spherocytes Cancelled Pappenheimer Bodies Cancelled Sickle Cells Cancelled Target Cells Cancelled Tear Drop Cells Cancelled Ovalocytes Cancelled Stomatocytes Cancelled [place] Bodies Cancelled Echinocytes Cancelled Acanthocytes (Spur) Cancelled Rouleaux Cancelled RBC Agglutinates Cancelled Schistocytes Cancelled Sezary Cell Cancelled PT (9.0-12.0) Seconds INR (0.9-1.1) VBG pH (7.36-7.41) VBG pCO2 (38-50) mmHg VBG pO2 mmHg VBG HCO3 mmol/L VBG O2 Saturation % VBG Base Excess mEq/L Sodium 137 (136-145) mmol/L Potassium 4.6 (3.5-5.1) mmol/L Chloride 95 L (98-107) mmol/L Carbon Dioxide 28 (21-32) mmol/L Anion Gap 14 H (3-11) BUN 27 H (6-23) mg/dl Creatinine 1.18 (0.6-1.4) mg/dl Est Cr Clr Drug Dosing 64.1 ml/min Est GFR ( Amer) 69.5 ml/min Est GFR (Non-Af Amer) 60.0 ml/min BUN/Creatinine Ratio 22.9 H (10-20) Glucose 440 H* (70-99(Fasting)) mg/dl POC Glucose 487 H* (70-99) mg/dl Lactate Calcium 9.9 (8.5-10.1) mg/dl Phosphorus 4.6 (2.5-4.9) mg/dl Magnesium 2.8 H (1.7-2.4) mg/dl Total Bilirubin 10.0 H (0.2-1.0) mg/dl Direct Bilirubin (0-0.2) mg/dl AST 491 H (13-39) U/L ALT 424 H (7-52) U/L Alkaline Phosphatase 479 H (34-104) U/L Ammonia (18-72) umol/L Total Creatine Kinase (30-223) U/L Troponin I High Sens 35.5 H D (0-20) pg/ml Total Protein 6.6 (6.0-8.3) gm/dl Albumin 3.5 (3.4-5.0) gm/dl Globulin 3.1 (2.5-4.0) gm/dl Albumin/Globulin Ratio 1.1 (0.9-2) Lipase 322 H (11-82) U/L Procalcitonin (0-0.5) ng/ml TSH (0.300-4.500) uIu/ml Urine Color Urine Appearance (Clear) Urine pH (4.5-7.5) Ur Specific [place] (1.000-1.030) Urine Protein (Negative) Urine Glucose (UA) (Negative) Urine Ketones (Negative) Urine Blood (Negative) Urine Nitrite (Negative) Urine Bilirubin (Negative) Urine Urobilinogen (Negative) Ur Leukocyte Esterase (Negative) SARS-CoV-2, RNA, NAAT (NEGATIVE) Blood Parasites ID Cancelled Blood Type Antibody Screen 07/17/22 07/17/22 07/18/22 Range/Units 23:21 23:21 00:00 WBC RBC Hgb Hct MCV MCH MCHC RDW Std Deviation RDW Coeff of Jatinder Plt Count MPV Immature Gran % (Auto) Neut % (Auto) Lymph % (Auto) [place] % (Auto) Eos % (Auto) Baso % (Auto) Neut # (Auto) Lymph # (Auto) [place] # (Auto) Eos # (Auto) Baso # (Auto) Immature Gran # (Auto) Absolute Nucleated RBC Nucleated RBC % (auto) Neutrophils % (Manual) Band Neutrophils % Lymphocytes % (Manual) Prolymphocyte % Reactive Lymphs % (Man) Monocytes % (Manual) Eosinophils % (Manual) Basophils % (Manual) Metamyelocytes % (Man) Myelocytes % (Man) Promyelocytes % (Man) Blast Cells % (Manual) Plasma Cell % (Manual) Other Cells % Nucleated RBC % Neutrophils # (Manual) Band Neutrophils # Total Absolute Neuts Lymphocytes # (Manual) Prolymphocyte # Reactive Lymphs # Total Abs Lymphocytes Monocytes # (Manual) Eosinophils # (Manual) Basophils # (Manual) Metamyelocytes # (Man) Myelocytes # (Manual) Promyelocytes # (Man) Blast Cells # (Man) Plasma Cell # (Manual) Other Cells # Nucleated RBCs # (Man) Hypersegmented Neuts Hyposegmented Neuts Hypogranular Neuts Large Granular Lymphs # Lrg Granular Lymphs Hairy Cells Smudge Cells Toxic Granulation Toxic Vacuolation Dohle Bodies Melissa Rods Platelet Estimate Hypogranular Platelets Clumped Platelets Giant Platelets Platelet Satelliting RBC Morphology Polychromasia Hypochromasia Poikilocytosis Basophilic Stippling Anisocytosis Microcytosis Macrocytosis Spherocytes Pappenheimer Bodies Sickle Cells Target Cells Tear Drop Cells Ovalocytes Stomatocytes [place] Bodies Echinocytes Acanthocytes (Spur) Rouleaux RBC Agglutinates Schistocytes Sezary Cell PT (9.0-12.0) Seconds INR (0.9-1.1) VBG pH (7.36-7.41) VBG pCO2 (38-50) mmHg VBG pO2 mmHg VBG HCO3 mmol/L VBG O2 Saturation % VBG Base Excess mEq/L Sodium (136-145) mmol/L Potassium (3.5-5.1) mmol/L Chloride (98-107) mmol/L Carbon Dioxide (21-32) mmol/L Anion Gap (3-11) BUN (6-23) mg/dl Creatinine (0.6-1.4) mg/dl Est Cr Clr Drug Dosing ml/min Est GFR ( Amer) ml/min Est GFR (Non-Af Amer) ml/min BUN/Creatinine Ratio (10-20) Glucose (70-99(Fasting)) mg/dl POC Glucose (70-99) mg/dl Lactate Calcium (8.5-10.1) mg/dl Phosphorus (2.5-4.9) mg/dl Magnesium (1.7-2.4) mg/dl Total Bilirubin (0.2-1.0) mg/dl Direct Bilirubin (0-0.2) mg/dl AST (13-39) U/L ALT (7-52) U/L Alkaline Phosphatase (34-104) U/L Ammonia (18-72) umol/L Total Creatine Kinase (30-223) U/L Troponin I High Sens (0-20) pg/ml Total Protein (6.0-8.3) gm/dl Albumin (3.4-5.0) gm/dl Globulin (2.5-4.0) gm/dl Albumin/Globulin Ratio (0.9-2) Lipase (11-82) U/L Procalcitonin (0-0.5) ng/ml TSH 0.411 (0.300-4.500) uIu/ml Urine Color Dark Yellow Urine Appearance Clear (Clear) Urine pH 6.5 (4.5-7.5) Ur Specific [place] 1.026 (1.000-1.030) Urine Protein Negative (Negative) Urine Glucose (UA) 3+ H (Negative) Urine Ketones Negative (Negative) Urine Blood Negative (Negative) Urine Nitrite Negative (Negative) Urine Bilirubin Negative (Negative) Urine Urobilinogen Negative (Negative) Ur Leukocyte Esterase Negative (Negative) SARS-CoV-2, RNA, NAAT NEGATIVE (NEGATIVE) Blood Parasites ID Blood Type Antibody Screen 07/18/22 07/18/22 07/18/22 Range/Units 00:36 00:36 00:36 WBC RBC Hgb Hct MCV MCH MCHC RDW Std Deviation RDW Coeff of Jatinder Plt Count MPV Immature Gran % (Auto) Neut % (Auto) Lymph % (Auto) [place] % (Auto) Eos % (Auto) Baso % (Auto) Neut # (Auto) Lymph # (Auto) [place] # (Auto) Eos # (Auto) Baso # (Auto) Immature Gran # (Auto) Absolute Nucleated RBC Nucleated RBC % (auto) Neutrophils % (Manual) Band Neutrophils % Lymphocytes % (Manual) Prolymphocyte % Reactive Lymphs % (Man) Monocytes % (Manual) Eosinophils % (Manual) Basophils % (Manual) Metamyelocytes % (Man) Myelocytes % (Man) Promyelocytes % (Man) Blast Cells % (Manual) Plasma Cell % (Manual) Other Cells % Nucleated RBC % Neutrophils # (Manual) Band Neutrophils # Total Absolute Neuts Lymphocytes # (Manual) Prolymphocyte # Reactive Lymphs # Total Abs Lymphocytes Monocytes # (Manual) Eosinophils # (Manual) Basophils # (Manual) Metamyelocytes # (Man) Myelocytes # (Manual) Promyelocytes # (Man) Blast Cells # (Man) Plasma Cell # (Manual) Other Cells # Nucleated RBCs # (Man) Hypersegmented Neuts Hyposegmented Neuts Hypogranular Neuts Large Granular Lymphs # Lrg Granular Lymphs Hairy Cells Smudge Cells Toxic Granulation Toxic Vacuolation Dohle Bodies Melissa Rods Platelet Estimate Hypogranular Platelets Clumped Platelets Giant Platelets Platelet Satelliting RBC Morphology Polychromasia Hypochromasia Poikilocytosis Basophilic Stippling Anisocytosis Microcytosis Macrocytosis Spherocytes Pappenheimer Bodies Sickle Cells Target Cells Tear Drop Cells Ovalocytes Stomatocytes [place] Bodies Echinocytes Acanthocytes (Spur) Rouleaux RBC Agglutinates Schistocytes Sezary Cell PT (9.0-12.0) Seconds INR (0.9-1.1) VBG pH 7.46 H (7.36-7.41) VBG pCO2 39 (38-50) mmHg VBG pO2 50 mmHg VBG HCO3 28 mmol/L VBG O2 Saturation 81.6 % VBG Base Excess 3.7 mEq/L Sodium (136-145) mmol/L Potassium (3.5-5.1) mmol/L Chloride (98-107) mmol/L Carbon Dioxide (21-32) mmol/L Anion Gap (3-11) BUN (6-23) mg/dl Creatinine (0.6-1.4) mg/dl Est Cr Clr Drug Dosing ml/min Est GFR ( Amer) ml/min Est GFR (Non-Af Amer) ml/min BUN/Creatinine Ratio (10-20) Glucose (70-99(Fasting)) mg/dl POC Glucose (70-99) mg/dl Lactate TNP Calcium (8.5-10.1) mg/dl Phosphorus (2.5-4.9) mg/dl Magnesium (1.7-2.4) mg/dl Total Bilirubin (0.2-1.0) mg/dl Direct Bilirubin (0-0.2) mg/dl AST (13-39) U/L ALT (7-52) U/L Alkaline Phosphatase (34-104) U/L Ammonia 51.0 (18-72) umol/L Total Creatine Kinase (30-223) U/L Troponin I High Sens (0-20) pg/ml Total Protein (6.0-8.3) gm/dl Albumin (3.4-5.0) gm/dl Globulin (2.5-4.0) gm/dl Albumin/Globulin Ratio (0.9-2) Lipase (11-82) U/L Procalcitonin (0-0.5) ng/ml TSH (0.300-4.500) uIu/ml Urine Color Urine Appearance (Clear) Urine pH (4.5-7.5) Ur Specific [place] (1.000-1.030) Urine Protein (Negative) Urine Glucose (UA) (Negative) Urine Ketones (Negative) Urine Blood (Negative) Urine Nitrite (Negative) Urine Bilirubin (Negative) Urine Urobilinogen (Negative) Ur Leukocyte Esterase (Negative) SARS-CoV-2, RNA, NAAT (NEGATIVE) Blood Parasites ID Blood Type Antibody Screen 07/18/22 07/18/22 07/18/22 Range/Units 00:36 01:07 02:22 WBC 12.60 H RBC 4.91 Hgb 15.3 Hct 45.2 MCV 92.1 MCH 31.2 MCHC 33.8 RDW Std Deviation 62.4 H RDW Coeff of Jatinder 19.1 H Plt Count 90 L MPV 11.9 Immature Gran % (Auto) 4.4 Neut % (Auto) 81.8 Lymph % (Auto) 8.1 [place] % (Auto) 5.2 Eos % (Auto) 0.1 Baso % (Auto) 0.4 Neut # (Auto) 10.30 H Lymph # (Auto) 1.02 L [place] # (Auto) 0.66 Eos # (Auto) 0.01 Baso # (Auto) 0.05 Immature Gran # (Auto) 0.56 H Absolute Nucleated RBC 0.03 H Nucleated RBC % (auto) 0.2 Neutrophils % (Manual) Band Neutrophils % Lymphocytes % (Manual) Prolymphocyte % Reactive Lymphs % (Man) Monocytes % (Manual) Eosinophils % (Manual) Basophils % (Manual) Metamyelocytes % (Man) Myelocytes % (Man) Promyelocytes % (Man) Blast Cells % (Manual) Plasma Cell % (Manual) Other Cells % Nucleated RBC % Neutrophils # (Manual) Band Neutrophils # Total Absolute Neuts Lymphocytes # (Manual) Prolymphocyte # Reactive Lymphs # Total Abs Lymphocytes Monocytes # (Manual) Eosinophils # (Manual) Basophils # (Manual) Metamyelocytes # (Man) Myelocytes # (Manual) Promyelocytes # (Man) Blast Cells # (Man) Plasma Cell # (Manual) Other Cells # Nucleated RBCs # (Man) Hypersegmented Neuts Hyposegmented Neuts Hypogranular Neuts Large Granular Lymphs # Lrg Granular Lymphs Hairy Cells Smudge Cells Toxic Granulation Toxic Vacuolation Dohle Bodies Melissa Rods Platelet Estimate Hypogranular Platelets Clumped Platelets Giant Platelets Platelet Satelliting RBC Morphology Polychromasia Hypochromasia Poikilocytosis Basophilic Stippling Anisocytosis Microcytosis Macrocytosis Spherocytes Pappenheimer Bodies Sickle Cells Target Cells Tear Drop Cells Ovalocytes Stomatocytes [place] Bodies Echinocytes Acanthocytes (Spur) Rouleaux RBC Agglutinates Schistocytes Sezary Cell PT (9.0-12.0) Seconds INR (0.9-1.1) VBG pH (7.36-7.41) VBG pCO2 (38-50) mmHg VBG pO2 mmHg VBG HCO3 mmol/L VBG O2 Saturation % VBG Base Excess mEq/L Sodium (136-145) mmol/L Potassium (3.5-5.1) mmol/L Chloride (98-107) mmol/L Carbon Dioxide (21-32) mmol/L Anion Gap (3-11) BUN (6-23) mg/dl Creatinine (0.6-1.4) mg/dl Est Cr Clr Drug Dosing ml/min Est GFR ( Amer) ml/min Est GFR (Non-Af Amer) ml/min BUN/Creatinine Ratio (10-20) Glucose (70-99(Fasting)) mg/dl POC Glucose 364 H* (70-99) mg/dl Lactate Calcium (8.5-10.1) mg/dl Phosphorus (2.5-4.9) mg/dl Magnesium (1.7-2.4) mg/dl Total Bilirubin (0.2-1.0) mg/dl Direct Bilirubin (0-0.2) mg/dl AST (13-39) U/L ALT (7-52) U/L Alkaline Phosphatase (34-104) U/L Ammonia (18-72) umol/L Total Creatine Kinase (30-223) U/L Troponin I High Sens (0-20) pg/ml Total Protein (6.0-8.3) gm/dl Albumin (3.4-5.0) gm/dl Globulin (2.5-4.0) gm/dl Albumin/Globulin Ratio (0.9-2) Lipase (11-82) U/L Procalcitonin (0-0.5) ng/ml TSH (0.300-4.500) uIu/ml Urine Color Urine Appearance (Clear) Urine pH (4.5-7.5) Ur Specific [place] (1.000-1.030) Urine Protein (Negative) Urine Glucose (UA) (Negative) Urine Ketones (Negative) Urine Blood (Negative) Urine Nitrite (Negative) Urine Bilirubin (Negative) Urine Urobilinogen (Negative) Ur Leukocyte Esterase (Negative) SARS-CoV-2, RNA, NAAT (NEGATIVE) Blood Parasites ID Blood Type A Positive Antibody Screen NEGATIVE Administered Medications Aspirin (Aspirin 81 Mg Ectab) 81 mg PO [facility] Stop: 08/17/22 08:59 Last Admin: 07/18/22 07:56 Dose: 81 mg Documented By: [id number] Famotidine (Famotidine 20 Mg Tab) 20 mg PO [facility] Stop: 08/17/22 08:59 Last Admin: 07/18/22 07:56 Dose: 20 mg Documented By: [id number] Fluticasone/Vilanterol (Fluticasone/Vilanterol 100/25mcg 14 Puffs/Inhaler) 1 puffs INH DAILY [facility] TO [facility] Stop: 08/17/22 08:59 Last Admin: 07/18/22 09:16 Dose: 1 puffs Documented By: [id number] Insulin Aspart (Insulin Aspart Per Unit) 0 units SC ACHS [facility]END[facility] TO [facility] Stop: 08/17/22 08:29 Last Admin: 07/18/22 17:25 Dose: 5 units Documented By: [id number] Co-signed By: PARRISH Admin: 07/18/22 13:25 Dose: 2 units Documented By: [id number] Co-signed By: PARRISH Admin: 07/18/22 09:16 Dose: 11 units Documented By: [id number] Co-signed By: PARRISH Insulin Glargine (Lantus Per Unit Charge) 20 units SC BIDM PENDING [facility] TO [facility] Stop: 08/17/22 16:59 Last Admin: 07/18/22 17:26 Dose: 20 units Documented By: [id number] Co-signed By: PARRISH Isosorbide Mononitrate (Isosorbide [place] Extended Rel 60 Mg Tabcr) 60 mg PO QAM [facility] Stop: 08/17/22 08:59 Last Admin: 07/18/22 07:56 Dose: 60 mg Documented By: [id number] Metoprolol Tartrate (Metoprolol Tartrate 50 Mg Tab) 50 mg PO BID [facility] Stop: 08/17/22 08:59 Last Admin: 07/18/22 07:56 Dose: 50 mg Documented By: [id number] Discontinued Medications Clopidogrel Bisulfate (Clopidogrel Bisulfate 75 Mg Tab) 75 mg PO QAM [facility] Stop: 08/17/22 08:59 Last Admin: 07/18/22 07:56 Dose: 75 mg Documented By: [id number] Furosemide (Furosemide Inj 20 Mg/2 Ml Vial) 20 mg IV DAILY [facility] Stop: 08/17/22 08:59 Last Admin: 07/18/22 08:02 Dose: 20 mg Documented By: [id number] Sodium Chloride (Nss) 500 mls @ 999 mls/hr IV .Q31M ONE Stop: 07/17/22 23:53 Last Infusion: 07/18/22 00:15 Dose: 0 mls/hr Documented By: Admin: 07/18/22 00:15 Dose: 999 mls/hr Documented By: FADI Insulin Aspart (Insulin Aspart Per Unit) 12 units SC NOW STA Stop: 07/18/22 05:45 Last Admin: 07/18/22 06:14 Dose: 12 units Documented By: [id number] Co-signed By: BELL Insulin Glargine (Lantus Per Unit Charge) 10 units SQ ONE ONE Stop: 07/18/22 05:45 Last Admin: 07/18/22 06:14 Dose: 10 units Documented By: [id number] Co-signed By: BELL Ioversol (Optiray 350 100ml) 95 ml IV ONCE ONE Stop: 07/18/22 01:39 Last Admin: 07/18/22 01:28 Dose: 95 ml Documented By: LINUS Imaging Data Radiologist's Impression: Abdomen/Pelvis CT 07/17/22 23:30 CT SCAN OF THE CHEST, ABDOMEN, AND PELVIS WITH IV CONTRAST CLINICAL HISTORY: Fall. Diffuse pain. Metastatic disease. COMPARISON STUDY: CT scans of the chest, abdomen, and pelvis dated 07/06/2022. TECHNIQUE: Following the IV administration of 95 of Optiray 350, CT scan of the chest, abdomen, and pelvis was performed from the thoracic inlet to the proximal femora. Images are reviewed in the axial, sagittal, and coronal planes. IV contrast was administered without complication. A dose lowering technique was utilized adhering to the principles of ALARA. The examination is degraded by streak artifact from the right arm which could not be elevated above the chest or abdomen. CT DOSE: 3949.62 mGy.cm FINDINGS: CHEST: Thyroid: Mildly enlarged and heterogeneous. Thoracic aorta: There is atherosclerotic calcification of the thoracic aorta, which is normal in caliber and demonstrates standard 3-vessel arch anatomy. No dissection is seen. Pulmonary vasculature: The pulmonary trunk is normal in caliber. There are no filling defects identified in the central pulmonary vessels to indicate pulmonary embolus. Note that this examination was not protocoled for evaluation of the pulmonary arteries. Heart: The heart is normal in size noting trace pericardial effusion. The coronary arteries are densely calcified. Lungs and pleural spaces: Evaluation of the lung parenchyma is degraded by motion artifact. There is moderate emphysema. No air space consolidation typical for pneumonia, pleural effusion, or pneumothorax is identified. Secretions are noted in the trachea. A 3.6 x 3.1 cm right suprahilar lung mass is similar to previous. This is best seen on image 110. There are satellite nodules in the right upper lobe which measure up to 1.2 cm. A 1.3 cm right lower lobe nodule on image #75 and a 1.1 cm groundglass lesion in the right lower lobe on image 197 are also unchanged. No left pulmonary lesions are clearly identified. There is mild bibasilar scarring/atelectasis. Mediastinum: There is no mediastinal hematoma. Mediastinal lymphadenopathy similar to previous. A subcarinal node measures 4.2 x 1.7 cm. A precarinal node measures 2.2 x 1.4 cm. Kathy: Right hilar adenopathy is similar to previous. A node on image 135 measures 3.1 x 2.9 cm. The left hilum is clear. Axillae: There is no axillary lymphadenopathy. Bony thorax: The skeletal structures are osteopenic. 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 Numerous pathologic rib fractures are unchanged. There are pathological inferior endplate compression fractures of T9 and T11. These have also not significantly changed. No acute fracture is clearly identified. There is extension of tumor into the anterior epidural space at T9 and T10. Tumor also encroaches upon the right neural foramen at T6-T7 as seen on image #126. ABDOMEN AND PELVIS: Liver: The contrast-enhanced liver is enlarged, measuring 25.5 cm in length. Diffusely diminished hepatic attenuation indicates steatosis. There is evidence of extensive/diffuse hepatic metastatic disease. A conglomerate lesion in the left lobe on image #114 measures up to 7.5 cm. There is no intrahepatic biliary ductal dilatation. The hepatic veins and portal veins are patent. Gallbladder: Surgically absent noting clips in the gallbladder fossa. Spleen: Normal in size and attenuation. Pancreas: Unremarkable. Adrenal glands: Bilateral nodularity of the adrenal glands is unchanged. Kidneys: The contrast enhanced kidneys demonstrate cortical atrophy and are without hydronephrosis. The kidneys enhance symmetrically. A 1.8 cyst is noted in the right lower pole. Additional subcentimeter cortical hypodensities also likely represent cysts but are too small for definitive characterization. Abdominal vasculature: The abdominal aorta is normal in course and caliber noting advanced atherosclerotic calcification. Stomach and bowel: There is a small hiatal hernia. There is mild colonic diverticulosis without CT evidence of acute diverticulitis. No bowel obstruction is seen. Mild fecal retention is noted throughout the colon. The appendix is well-visualized and normal. Peritoneum: A small amount of perihepatic ascites has increased from previous. No intraperitoneal free air is seen. Lymphadenopathy: Enlarged lymph nodes in the sonia hepatis are similar to previous. These measure up to 14 mm in short axis. An enlarged portacaval node is unchanged and measures 17 mm in short axis. There is no retroperitoneal, pelvic sidewall, or inguinal adenopathy. Pelvic viscera: The prostate gland is enlarged and heterogeneous noting median lobe hypertrophy. The bladder is distended and otherwise grossly unremarkable. There are bilateral fat-containing inguinal hernias. Skeletal structures: The skeletal structures are osteopenic. 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 No acute fracture is identified. A pathologic inferior endplate compression fracture of L2 is unchanged. IMPRESSION: 1. No acute posttraumatic intrathoracic abnormality is identified. 2. There is no evidence of solid organ injury in the abdomen or pelvis. 3. Again seen is a right suprahilar lung mass with several additional right- sided pulmonary lesions. The primary lesion appears modestly increased in size as compared to 07/06/2022. 4. Mediastinal and right hilar adenopathy has also not appreciably changed. 5. The liver is enlarged and steatotic, and infiltrated by diffuse metastatic d isease. Hepatic metastatic disease appears to have significantly progressed as compared to 07/06/2022. 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 7. Numerous pathological fractures are unchanged. No new fracture is clearly identified. 8. Note that tumor extends into the anterior epidural space at T9 and T10. Tumor also encroaches on the right T6-T7 neural foramen. 9. A small amount of perihepatic ascites has modestly increased from previous. 10. Emphysema. 11. There is no airspace consolidation typical for pneumonia, pleural effusion, or pneumothorax. 12. Additional findings as above. ACT 112: Negative or not required by law. Electronically signed by: Carlos Jennings M.D. 07/18/2022 9:[address] 07/17/22 23:30 CT SCAN OF THE CERVICAL SPINE CLINICAL HISTORY: Fall. Neck pain. COMPARISON STUDY: CT of the cervical spine dated 07/06/2022. TECHNIQUE: CT scan of the cervical spine is performed from the skull base to the upper thoracic spine. Images are reviewed in the axial, sagittal, and coronal planes. IV contrast was not administered for this examination. A dose lowering technique was utilized adhering to the principles of ALARA. FINDINGS: Skeletal structures: The skeletal structures are osteopenic. There is no evidence of fracture or subluxation involving the cervical spine. Vertebral body height and alignment are maintained. There is straightening of the cervical lordosis. Anterior osteophytes are seen throughout. The odontoid process and lateral masses are intact. The atlantoaxial articulation is preserved note is productive degenerative change. The spinous processes appear intact. There is moderate multilevel cervical spondylosis. Uncovertebral and facet arthropathy contribute to neural foraminal narrowing at several levels. Lucent lesions within the left facets of C6 and C7 are unchanged and suggestive of metastatic disease. Similar appearing lesions are seen within the posterior third ribs bilaterally. Intervertebral discs: There is moderate to severe disc space narrowing at C4-C5, C5-C6, C6-C7. Endplate sclerosis is noted at C4-C5. Central canal: Posterior disc osteophyte complexes are seen at all cervical levels between C3-C4 and C6-C7. This likely contributes to multilevel acquired compromise of the central canal. Soft tissues: The prevertebral and paraspinous soft tissues are within normal limits. There is atherosclerotic calcification of the carotid bulbs. A calcified sialolith is noted in the right parotid gland. Calvarium: The visualized calvarium at the skull base appears intact. Brain parenchyma: Partially visualized brain parenchyma at the skull base is within normal limits. Sinuses and mastoids: The visualized paranasal sinuses are clear. The mastoid air cells are well pneumatized. Lung apices: Emphysematous change is noted at the apices. IMPRESSION: 1. There is no evidence of fracture or subluxation involving the cervical spine. 2. Osteopenia and spondylotic change as above. 3. Lucent lesions within the left facets of C6 and C7 are similar previous and likely represent metastatic disease. There are also posterior rib lesions. 4. Emphysema. ACT 112: Negative or not required by law. Electronically signed by: Carlos Jennings M.D. 07/18/2022 7:[address] 07/17/22 23:30 CT SCAN OF THE CHEST, ABDOMEN, AND PELVIS WITH IV CONTRAST CLINICAL HISTORY: Fall. Diffuse pain. Metastatic disease. COMPARISON STUDY: CT scans of the chest, abdomen, and pelvis dated 07/06/2022. TECHNIQUE: Following the IV administration of 95 of Optiray 350, CT scan of the chest, abdomen, and pelvis was performed from the thoracic inlet to the proximal femora. Images are reviewed in the axial, sagittal, and coronal planes. IV contrast was administered without complication. A dose lowering technique was utilized adhering to the principles of ALARA. The examination is degraded by streak artifact from the right arm which could not be elevated above the chest or abdomen. CT DOSE: 3949.62 mGy.cm FINDINGS: CHEST: Thyroid: Mildly enlarged and heterogeneous. Thoracic aorta: There is atherosclerotic calcification of the thoracic aorta, which is normal in caliber and demonstrates standard 3-vessel arch anatomy. No dissection is seen. Pulmonary vasculature: The pulmonary trunk is normal in caliber. There are no filling defects identified in the central pulmonary vessels to indicate pulmonary embolus. Note that this examination was not protocoled for evaluation of the pulmonary arteries. Heart: The heart is normal in size noting trace pericardial effusion. The coronary arteries are densely calcified. Lungs and pleural spaces: Evaluation of the lung parenchyma is degraded by motion artifact. There is moderate emphysema. No air space consolidation typical for pneumonia, pleural effusion, or pneumothorax is identified. Secretions are noted in the trachea. A 3.6 x 3.1 cm right suprahilar lung mass is similar to previous. This is best seen on image 110. There are satellite nodules in the right upper lobe which measure up to 1.2 cm. A 1.3 cm right lower lobe nodule on image #75 and a 1.1 cm groundglass lesion in the right lower lobe on image 197 are also unchanged. No left pulmonary lesions are clearly identified. There is mild bibasilar scarring/atelectasis. Mediastinum: There is no mediastinal hematoma. Mediastinal lymphadenopathy similar to previous. A subcarinal node measures 4.2 x 1.7 cm. A precarinal node measures 2.2 x 1.4 cm. Kathy: Right hilar adenopathy is similar to previous. A node on image 135 measures 3.1 x 2.9 cm. The left hilum is clear. Axillae: There is no axillary lymphadenopathy. Bony thorax: The skeletal structures are osteopenic. 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 Numerous pathologic rib fractures are unchanged. There are pathological inferior endplate compression fractures of T9 and T11. These have also not significantly changed. No acute fracture is clearly identified. There is extension of tumor into the anterior epidural space at T9 and T10. Tumor also encroaches upon the right neural foramen at T6-T7 as seen on image #126. ABDOMEN AND PELVIS: Liver: The contrast-enhanced liver is enlarged, measuring 25.5 cm in length. Di ffusely diminished hepatic attenuation indicates steatosis. There is evidence of extensive/diffuse hepatic metastatic disease. A conglomerate lesion in the left lobe on image #114 measures up to 7.5 cm. There is no intrahepatic biliary ductal dilatation. The hepatic veins and portal veins are patent. Gallbladder: Surgically absent noting clips in the gallbladder fossa. Spleen: Normal in size and attenuation. Pancreas: Unremarkable. Adrenal glands: Bilateral nodularity of the adrenal glands is unchanged. Kidneys: The contrast enhanced kidneys demonstrate cortical atrophy and are without hydronephrosis. The kidneys enhance symmetrically. A 1.8 cyst is noted in the right lower pole. Additional subcentimeter cortical hypodensities also likely represent cysts but are too small for definitive characterization. Abdominal vasculature: The abdominal aorta is normal in course and caliber noting advanced atherosclerotic calcification. Stomach and bowel: There is a small hiatal hernia. There is mild colonic diverti culosis without CT evidence of acute diverticulitis. No bowel obstruction is seen. Mild fecal retention is noted throughout the colon. The appendix is well- visualized and normal. Peritoneum: A small amount of perihepatic ascites has increased from previous. No intraperitoneal free air is seen. Lymphadenopathy: Enlarged lymph nodes in the sonia hepatis are similar to previous. These measure up to 14 mm in short axis. An enlarged portacaval node is unchanged and measures 17 mm in short axis. There is no retroperitoneal, pelvic sidewall, or inguinal adenopathy. Pelvic viscera: The prostate gland is enlarged and heterogeneous noting median lobe hypertrophy. The bladder is distended and otherwise grossly unremarkable. There are bilateral fat-containing inguinal hernias. Skeletal structures: The skeletal structures are osteopenic. 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 No acute fracture is identified. A pathologic inferior endplate compression fracture of L2 is unchanged. IMPRESSION: 1. No acute posttraumatic intrathoracic abnormality is identified. 2. There is no evidence of solid organ injury in the abdomen or pelvis. 3. Again seen is a right suprahilar lung mass with several additional right- sided pulmonary lesions. The primary lesion appears modestly increased in size as compared to 07/06/2022. 4. Mediastinal and right hilar adenopathy has also not appreciably changed. 5. The liver is enlarged and steatotic, and infiltrated by diffuse metastatic disease. Hepatic metastatic disease appears to have significantly progressed as compared to 07/06/2022. 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 7. Numerous pathological fractures are unchanged. No new fracture is clearly identified. 8. Note that tumor extends into the anterior epidural space at T9 and T10. Tumor also encroaches on the right T6-T7 neural foramen. 9. A small amount of perihepatic ascites has modestly increased from previous. 10. Emphysema. 11. There is no airspace consolidation typical for pneumonia, pleural effusion, or pneumothorax. 12. Additional findings as above. ACT 112: Negative or not required by law. Electronically signed by: Carlos Jennings M.D. 07/18/2022 9:[address] 07/17/22 23:30 CT SCAN OF THE BRAIN WITHOUT IV CONTRAST CLINICAL HISTORY: Fall. COMPARISON STUDY: CT of the brain dated 07/06/2022. TECHNIQUE: Unenhanced axial CT scan of the brain is performed from the vertex to the skull base. A dose lowering technique was utilized adhering to the principles of ALARA. The patient was scanned twice due to motion artifact. FINDINGS: Brain parenchyma: There is age-related involutional change noting mild subcortical and periventricular microangiopathic disease. There is no hemorrhage, mass effect, or evidence of acute territorial ischemia by CT criteria. Ochoa-white matter differentiation is preserved. No extra-axial fluid collection is seen. Ventricles, sulci, cisterns: Prominent secondary to involutional change. Intracranial vasculature: There is atherosclerotic calcification of the cavernous carotid and vertebral arteries. Calvarium: The skeletal structures are osteopenic. No depressed calvarial fracture is seen. Sinuses and mastoids: The visualized paranasal sinuses are clear. The mastoid air cells are well pneumatized. Orbits: The bony orbits are grossly intact. There are bilateral ocular lens implants. IMPRESSION: There is no hemorrhage, mass effect, or evidence of acute territorial ischemia by CT criteria. ACT 112: Negative or not required by law. Electronically signed by: Carlos Jennings M.D. 07/18/2022 6:58 AM Orbit X-Ray 07/18/22 00:00 BONY ORBITS 3 VIEWS CLINICAL HISTORY: MRI clearance. FINDINGS: 3 views of the bony orbits are obtained. There is no radiodense/metallic foreign body seen in the region of the bony orbits. The bony orbits are intact as imaged. The visualized paranasal sinuses and the mastoid a ir cells appear clear. The imaged calvarium appears intact. IMPRESSION: There is no radiodense/metallic foreign body seen in the region of the bony orbits. ACT 112: Negative or not required by law. Electronically signed by: Carlos Jennings M.D. 07/18/2022 12:31 PM [facility] Preliminary Findings Only See Final Report For Complete Findings CT HEAD: No intracranial hemorrhage, mass-effect or midline shift. There is no abnormal extra axial fluid collection. No evidence of acute infarct. Mild periventricular white matter hypodensities are most consistent with chronic microangiopathy. The visualized paranasal sinuses and mastoid air cells are clear. No fracture. Radiologist: Slime Lemons MD Study ready at 01:58 and initial results transmitted at 02:31 Preliminary Findings Only See Final Report For Complete Findings CT C SPINE: No fracture or malalignment. No prevertebral soft tissue swelling. There are degenerative changes of the spine. Lucent lesions of C6 and C7 and the left third rib are most consistent with metastatic disease. Radiologist: Slime Lemons MD Study ready at 01:58 and initial results transmitted at 02:33 Preliminary Findings Only See Final Report For Complete Findings CT CHEST With Contrast: Pulmonary metastases are noted. Please note the questioned right lower lobe lesion most likely represents metastatic disease. Emphysema. Right hilar and subcarinal lymphadenopathy is most consistent with metastatic disease. The heart size is within normal limits. No fracture. Diffuse osseous metastases. Radiologist: Slime Lemons MD Study ready at 02:03 and initial results transmitted at 02:53 Preliminary Findings Only See Final Report For Complete Findings CT ABDOMEN & PELVIS With Contrast: Diffuse hepatic metastases. The remaining solid organs are within normal limits. No bowel obstruction. Diverticulosis. Mild age indeterminate T11 compression fracture. Diffuse osseous metastases. Indeterminant airspace opacity of the right lower lobe. This may be infectious or malignant. Radiologist: Slime Lemons MD Study ready at 02:03 and initial results transmitted at 02:46 Discharge Plan Visit Data Chief Complaint: Weakness Stated Complaint: Weakness, Confusion, Fall, Chest Pressure ED Provider: Epifanio Springer Discharge Problem: Metastatic disease, Transaminitis, Recurrent falls, Elevated troponin, Generalized weakness, Hyperglycemia Patient Disposition: Admitted As Inpatient Discharge Instructions Interventions: ED Discharge Assessment Last Done: 07/18/22 05:14
[2022-07-18 00:17] LABS: Troponin I High Sensitivity 35.5 pg/ml (0-20)
[2022-07-18 00:21] LABS: Appearance Urine Clear (Clear); Bilirubin Urine Negative (Negative); Blood Urine Negative (Negative); Color Urine Dark Yellow; Glucose Urine UA 3+ (Negative); Ketones Urine Negative (Negative); Leukocyte Esterase Urine Negative (Negative); Nitrite Urine Negative (Negative); Protein Urine Negative (Negative); Specific Gravity Urine 1.026 (1.000-1.030); Urobilinogen Urine Negative (Negative); pH Urine 6.5 (4.5-7.5)
[2022-07-18 00:51] LABS: Base Excess VBG 3.7 mEq/L; HCO3 VBG 28 mmol/L; Oxygen Saturation VBG 81.6 %; PCO2 VBG 39 mmHg (38-50); PO2 VBG 50 mmHg; pH VBG 7.46 (7.36-7.41)
[2022-07-18 00:58] LABS: INR 1.2 (0.9-1.1); Prothrombin Time 12.8 Seconds (9.0-12.0)
[2022-07-18 01:07] LABS: Potassium 4.6 mmol/L (3.5-5.1)
[2022-07-18 01:08] LABS: Albumin Globulin Ratio 1.1 (0.9-2); Albumin Level 3.5 gm/dl (3.4-5.0); BUN Creatinine Ratio 22.9 (10-20); Calcium 9.9 mg/dl (8.5-10.1); Creatinine Clr Calc Pharmacy 64.1 ml/min; Est GFR (African American) 69.5 ml/min; Globulin 3.1 gm/dl (2.5-4.0); Magnesium 2.8 mg/dl (1.7-2.4); Phosphorus 4.6 mg/dl (2.5-4.9); Total Protein 6.6 gm/dl (6.0-8.3)
[2022-07-18 01:26] LABS: Bilirubin Direct 5.6 mg/dl (0-0.2)
[2022-07-18] MEDS ORDERED: OPTIRAY 350 100ml IV ONE (01:38)
--- NOTE | 2022-07-18 01:49 | History & Physical Report ---
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 Patient is profoundly weak tired and likely intravascularly depleted despite his outward appearance of peripheral edema. He is unable to do for himself at home he has marked hyperglycemia which is likely leading to some dehydration Patient has significant elevation of his bilirubin and transaminases, he has hepatomegaly and his abdomen is tender at this time, CT abdomen and pelvis does not comment on biliard ductal obstruction will fractionate bili, and consider doppler or ask daytime radiology to comment on extrahepatic duct patency He is tachypneic markedly short of breath and mildly confused likely from his metabolic abnormalities. CTA did not suggest PE< I admitted the patient last time and he confirmed his DNR to me in that visit reconfirm that tonight Regarding his encephalopathy tonight he does not have elevation of his calcium, but does have mild leukocytosis Will consult hematology oncology to see if he is functional status precludes his ability to get chemotherapy and if so without able to correct some of his metabolic derangements which may be directly related to his malignancy he may not be a candidate to be treated may need to pursue comfort care (2) CHF (congestive heart failure): Plan: Patient has history of heart failure preserved ejection fraction he was discharged on diuretic therapy his hyperglycemia is likely compounding his intravascular volume depletion, will continue iv lasix low dose, recheck LE dopplers and if negative consider TEDS to help third spaced edema (3) Multiple falls: Plan: Patient still has lower extreme edema which is significant., He has bruises about his legs and arms (4) Diabetes mellitus, type II: Plan: Patient's diabetes is markedly uncontrolled he will be on sliding scale insulin with basal insulin added in, at home he is typically on glargine 30 with metformin and glipizide We given additional doses here in the emergency department to try to bring his blood glucose down and avoid insulin infusion (5) COPD (chronic obstructive pulmonary disease): Plan: Patient has baseline history of COPD from smoking is currently stable with regard to his oxygen saturations and respiratory effort (6) RICKEY (obstructive sleep apnea): Plan: Patient be offered CPAP here in the hospital (7) CAD (coronary artery disease): Plan: Plan aspirin and Plavix as well as isosorbide 60 and amlodipine. Patient is elevated troponin this is much less compared to his last visit. During the time of this was felt to be demand ischemia and likely would be the same today. We can repeat a high-sensitivity troponin in the morning Plan Patient will be placed on enoxaparin for DVT prevention due to his hypercoagulability of malignancy last hospital stay with his edema he had bilateral lower extremity DVTs which were negative for DVT and that was performed on July 07 History of Present Illness Primary Care Provider: Kirsten Arce MD 77-year-old gentleman with a past medical history of metastatic prostate cancer and small cell lung cancer with metastasis to spine, lung and liver which was recently diagnosed and has yet to undergo treatment who presents emerged department from home with generalized weakness with recurrent falls over the past week. He reports today he was unable to get up and thinks maybe this is why he was sent to the hospital. He has home health aides twice a week per EMS report. He reports feeling feverish, cough, nauseated but not pain or diarrhea. He reports he is on ASA and Plavix but denies any blood thinners otherwise. He has bruising across his abdomen which she reports is from different falls throughout the week. He reports his left flank is the most painful. The patient was recent admitted to this facility from 07/06-07/08 for weakness and recurrent falls where his widely metastatic cancer was found, liver biopsy shows small cell carcinoma. On arrival, the patient is slightly somnolent but alert, awake and oriented, afebrile with stable vital signs. He has dry mucous membranes with also 3+ pitting edema/third spacing. He was treated for HFpEF wtih lasix and spironolactone, He has some mild scleral icterus and jaundice. Biliriben is 10 Allergies Allergy/AdvReac Type Severity Reaction Status Date / Time losartan Allergy Mild face Verified 07/17/22 23:37 swelling Home Medications Medication Instructions Recorded Confirmed Type albuterol sulfate 90 mcg/actuation 2 puff inhalation QID PRN 02/03/19 07/18/22 History aerosol inhaler shortness of breath aspirin 81 mg chewable tablet 81 mg PO QAM 02/03/19 07/18/22 History budesonide-formoterol HFA 160 2 puff inhalation BID 02/03/19 07/18/22 History mcg-4.5 mcg/actuation aerosol inhaler isosorbide mononitrate 30 mg 60 mg PO QAM 02/03/19 07/18/22 History tablet,extended release 24 hr amlodipine 2.5 mg tablet 2.5 mg PO QAM 12/06/19 07/18/22 History clopidogrel 75 mg tablet 75 mg PO QAM 12/06/19 07/18/22 History famotidine 20 mg tablet 20 mg PO QAM 12/06/19 07/18/22 History Medical Marijuana 1 vp talent management inhalation [id number] 06/04/20 07/17/22 History cyanocobalamin (vitamin B-12) 1,000 mcg PO QAM 06/04/20 07/18/22 History 1,000 mcg tablet glipizide 10 mg tablet 10 mg PO BID 06/04/20 07/18/22 History insulin glargine 100 unit/mL 30 unit subcut HS 06/16/20 07/18/22 History subcutaneous solution metformin 1,000 mg tablet 1,000 mg PO BID #60 tabs 06/16/20 07/18/22 Rx oxycodone 10 mg tablet 10 mg PO TID PRN pain #25 tabs 06/30/22 07/17/22 Rx furosemide 40 mg tablet (Lasix) 40 mg PO DAILY #30 tabs 07/08/22 07/17/22 Rx metoprolol tartrate 50 mg tablet 50 mg PO BID #60 tabs 07/08/22 07/17/22 Rx potassium chloride 20 mEq 20 meq PO DAILY #30 tabs 07/08/22 07/17/22 Rx tablet,extended release spironolactone 25 mg tablet 12.5 mg PO DAILY #30 tabs 07/08/22 07/17/22 Rx Past Med/Surg History Medical History (Updated 07/18/22 @ 02:14 by Florencio Woodruff MD) CAD (coronary artery disease) Chronic obstructive pulmonary disease WELL CONTROLLED PER PATIENT Diabetes mellitus, type II IDDM Fusion of spine 1993 THORACIC AREA GERD (gastroesophageal reflux disease) UNDER CONTROL HLD (hyperlipidemia) HTN (hypertension) Kidney stones PASSED ON OWN Medical marijuana use Myocardial Infarction JANUARY 2019 FOLLOWS WITH [facility] RICKEY (obstructive sleep apnea) Osteoarthritis Sleep apnea CPAP Surgical History H/O removal of cyst FOREHEAD, THIGH, HIP> ALL BENIGN History of cholecystectomy History of colonoscopy History of esophagogastroduodenoscopy (EGD) History of left cataract surgery History of tonsillectomy History of tooth extraction Hx of angioplasty NO STENTS JANU[facility] Hx of surgical procedure REMOVAL OF METAL FROM LEFT LEG OVER 10 YRS AGO Family History Sister Breast cancer Grandfather (Paternal) Myocardial infarction Uncle Myocardial infarction Father Myocardial infarction Brother Myocardial infarction Family/Other Myocardial infarction cousin Other Coronary heart disease Denies family history of Ovarian cancer Prostate cancer Colorectal cancer Social History Smoking Status: Never smoker Second Hand Exposure: No; Hx Alcohol Use: No Hx Substance Use: No Preferred Language: Kiswahili Communication Ability: Effective Fire Services Plumber Required: No Beliefs That Will Affect Care: None marital status: Current Living Situation: Alone current occupational status: retired Feels Safe at Home: Yes caffeine: Yes (coffee) Dental Care, Regularly: No Physical Activity Frequency: 3-4 Times per Week Physical Activity Frequency Comment: walking the dog Seatbelt Use: always Sunscreen Use: No Assistive Devices: None Review of Systems Review of Systems: Mild distress and fatigue no headache, no visual changes no speech or swallowing issues no chest pain, pressure or palpitations no shortness of breath, cough or wheezes no abdominal pain, nausea or vomiting, diarrhea or constipation no dysuria, hematuria or frequency no focal joint pain or swelling no back pain, CVA tenderness or radicular pain no bruising, bleeding or rashes no focal signs of weakness or numbness or altered sensation no complaints of anxiety or depression.. Physical Exam Physical Exam: The patient appeared well nourished and normally developed. Vital signs as documented. Head exam is normocephalic atraumatic Neck is without JVD, thyromegaly, or carotid bruits. Lungs are clear to auscultation, no focal loss of breath sounds Cardiac exam, Rhythm is regular.. No murmurs, rubs or gallops. Abdominal exam reveals normal bowel sounds, soft non tender, no masses Extremities are nonedematous and both pedal pulses are present Neurologic exam is alert and oriented, no focal loss of strength or sensation Skin is without bruises or rashes Psychologically is without concerns for anxiety or depression.. Results & Data Results & Data (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
[2022-07-18] MEDS ORDERED: CARBOHYDRATES FOR HYPOGLYCEMIA PO PRN ×2 (02:01→05:44)
[2022-07-18] MEDS ORDERED: GLUCAGON FOR INJ 1 MG VIAL SQ PRN ×2 (02:01→05:44)
[2022-07-18] MEDS ORDERED: DEXTROSE 50% 50 ML SYRINGE IV PRN ×2 (02:01→05:44)
[2022-07-18] MEDS ORDERED: GLUCOSE 40% GEL 15 GM TUBE PO PRN ×2 (02:01→05:44)
[2022-07-18] MEDS ORDERED: GLUCOSE 10 TAB/TUBE PO PRN ×2 (02:01→05:44)
[2022-07-18 02:08] LABS: Basophils # (auto) 0.05 K/uL (0-0.2); Basophils % (auto) 0.4 %; Eosinophils # (auto) 0.01 K/uL (0-0.50); Eosinophils % (auto) 0.1 %; Hematocrit (blood only) 45.2 % (40.1-51.0); Hemoglobin 15.3 g/dl (14.0-18.0); Immature Granulocytes # (auto) 0.56 K/uL (0.00-0.02); Immature Granulocytes % (auto) 4.4 %; Lymphocytes # (auto) 1.02 K/uL (1.2-3.4); Lymphocytes % (auto) 8.1 %; Mean Corpuscular Hemoglobin 31.2 pg (25.0-34.0); Mean Corpuscular Hgb Conc 33.8 g/dL (32.0-36.0); Mean Corpuscular Volume 92.1 fL (80.0-100.0); Mean Platelet Volume 11.9 fL (9.4-12.4); Monocytes # (auto) 0.66 K/uL (0.24-0.82); Monocytes % (auto) 5.2 %; Neutrophils % (auto) 81.8 %; Nucleated RBC # (auto) 0.03 K/uL (0-0); Nucleated RBC % (auto) 0.2 %; Platelet Count 90 K/uL (130-400); RDW Coefficient of Variation 19.1 % (11.5-14.5); RDW Standard Deviation 62.4 fL (36.4-46.3); Red Blood Count 4.91 M/uL (4.63-6.08)
[2022-07-18] MEDS ORDERED: INSULIN ASPART PER UNIT SC STA (05:44)
[2022-07-18] MEDS ORDERED: LANTUS PER UNIT CHARGE SQ ONE (05:44)
[2022-07-18] MEDS ORDERED: ONDANSETRON INJ 2 MG/ML 2 ML VIAL IV PRN (05:44)
[2022-07-18] MEDS ORDERED: ALUMINUM/MAGNESIUM SUSP 30 ML UDC PO PRN (05:44)
[2022-07-18 05:46] LABS: Troponin I High Sensitivity 37.5 pg/ml (0-20)
[2022-07-18 06:17] LABS: Albumin Globulin Ratio 1.3 (0.9-2); Albumin Level 3.1 gm/dl (3.4-5.0); Bilirubin,Total 9.9 mg/dl (0.2-1.0); Calcium 9.2 mg/dl (8.5-10.1); Globulin 2.3 gm/dl (2.5-4.0); Potassium 4.5 mmol/L (3.5-5.1); Total Protein 5.4 gm/dl (6.0-8.3)
--- NOTE | 2022-07-18 06:19 | Ultrasound Report ---
ULTRASOUND BILATERAL LOWER EXTREMITY VENOUS CLINICAL HISTORY: Lower extremity edema. COMPARISON STUDY: Bilateral lower extremity venous ultrasound dated 07/07/2022. TECHNIQUE: Real-time, grayscale, and color Doppler sonography of the deep veins of the right and left lower extremity was performed from the inguinal crease to the calf. Compression and augmentation wer e utilized. FINDINGS: There is no sonographic evidence of deep venous thrombosis identified in the right or left lower extremity. The common femoral, superficial femoral, and popliteal veins are patent and normally compressible bilaterally. The greater saphenous vein and the profunda femoris vein at the junction w ith the common femoral vein are clear in both legs. The visualized calf veins are patent bilaterally. IMPRESSION: There is no sonographic evidence of deep venous thrombosis identified in the right or lef t lower extremity. ACT 112: Negative or not required by law. Electronically signed by: Carlos Jennings M.D. 07/18/2022 6:18 AM
[2022-07-18 06:45] LABS: BUN Creatinine Ratio 28.1 (10-20); Est GFR (African American) 89.3 ml/min
--- NOTE | 2022-07-18 07:00 | CT Scan Report ---
CT SCAN OF THE BRAIN WITHOUT IV CONTRAST CLINICAL HISTORY: Fall. COMPARISON STUDY: CT of the brain dated 07/06/2022. TECHNIQUE: Unenhanced axial CT scan of the brain is performed from the vertex to the skull base. A do se lowering technique was utilized adhering to the principles of ALARA. The patient was scanned twice due to motion artifact. FINDINGS: Brain parenchyma: There is age-related involutional change noting mild subcortical and periventricula r microangiopathic disease. There is no hemorrhage, mass effect, or evidence of acute territorial isc hemia by CT criteria. Ochoa-white matter differentiation is preserved. No extra-axial fluid collection is seen. Ventricles, sulci, cisterns: Prominent secondary to involutional change. Intracranial vasculature: There is atherosclerotic calcification of the cavernous carotid and vertebr al arteries. Calvarium: The skeletal structures are osteopenic. No depressed calvarial fracture is seen. Sinuses and mastoids: The visualized paranasal sinuses are clear. The mastoid air cells are well pneu matized. Orbits: The bony orbits are grossly intact. There are bilateral ocular lens implants. IMPRESSION: There is no hemorrhage, mass effect, or evidence of acute territorial ischemia by CT mariangel lamb. ACT 112: Negative or not required by law. Electronically signed by: Carlos Jennings M.D. 07/18/2022 6:58 AM
--- NOTE | 2022-07-18 07:15 | CT Scan Report ---
CT SCAN OF THE CERVICAL SPINE CLINICAL HISTORY: Fall. Neck pain. COMPARISON STUDY: CT of the cervical spine dated 07/06/2022. TECHNIQUE: CT scan of the cervical spine is performed from the skull base to the upper thoracic spine . Images are reviewed in the axial, sagittal, and coronal planes. IV contrast was not administered fo r this examination. A dose lowering technique was utilized adhering to the principles of ALARA. FINDINGS: Skeletal structures: The skeletal structures are osteopenic. There is no evidence of fracture or subl uxation involving the cervical spine. Vertebral body height and alignment are maintained. There is s traightening of the cervical lordosis. Anterior osteophytes are seen throughout. The odontoid process and lateral masses are intact. The atlantoaxial articulation is preserved note is productive degener ative change. The spinous processes appear intact. There is moderate multilevel cervical spondylosis. Uncovertebral and facet arthropathy contribute to neural foraminal narrowing at several levels. Lawrence nt lesions within the left facets of C6 and C7 are unchanged and suggestive of metastatic disease. Si milar appearing lesions are seen within the posterior third ribs bilaterally. Intervertebral discs: There is moderate to severe disc space narrowing at C4-C5, C5-C6, C6-C7. Endpla te sclerosis is noted at C4-C5. Central canal: Posterior disc osteophyte complexes are seen at all cervical levels between C3-C4 and C6-C7. This likely contributes to multilevel acquired compromise of the central canal. Soft tissues: The prevertebral and paraspinous soft tissues are within normal limits. There is athero sclerotic calcification of the carotid bulbs. A calcified sialolith is noted in the right parotid gla nd. Calvarium: The visualized calvarium at the skull base appears intact. Brain parenchyma: Partially visualized brain parenchyma at the skull base is within normal limits. Sinuses and mastoids: The visualized paranasal sinuses are clear. The mastoid air cells are well pneu matized. Lung apices: Emphysematous change is noted at the apices. IMPRESSION: 1. There is no evidence of fracture or subluxation involving the cervical spine. 2. Osteopenia and spondylotic change as above. 3. Lucent lesions within the left facets of C6 and C7 are similar previous and likely represent metas tatic disease. There are also posterior rib lesions. 4. Emphysema. ACT 112: Negative or not required by law. Electronically signed by: Carlos Jennings M.D. 07/18/2022 7:12 AM
[2022-07-18] MEDS: METOPROLOL TARTRATE 50 MG TAB PO SCH ×2 (07:56→20:26)
[2022-07-18] MEDS ORDERED: Nursing to Pharmacy Communication SCH (08:30)
[2022-07-18] MEDS ORDERED: CLOPIDOGREL BISULFATE 75 MG TAB PO SCH (09:00)
[2022-07-18] MEDS ORDERED: ASPIRIN 81 MG ECTAB PO SCH (09:00)
[2022-07-18] MEDS ORDERED: ISOSORBIDE MONO EXTENDED REL 60 MG TABCR PO SCH (09:00)
[2022-07-18] MEDS ORDERED: LANTUS PER UNIT CHARGE SC SCH ×3 (09:00→21:00)
[2022-07-18] MEDS ORDERED: FLUTICASONE/VILANTEROL 100/25MCG 14 PUFFS/INHALER INH SCH (09:00)
[2022-07-18] MEDS ORDERED: FUROSEMIDE INJ 20 MG/2 ML VIAL IV SCH (09:00)
[2022-07-18] MEDS ORDERED: FAMOTIDINE 20 MG TAB PO SCH (09:00)
--- NOTE | 2022-07-18 09:08 | CT Scan Report ---
CT SCAN OF THE CHEST, ABDOMEN, AND PELVIS WITH IV CONTRAST CLINICAL HISTORY: Fall. Diffuse pain. Metastatic disease. COMPARISON STUDY: CT scans of the chest, abdomen, and pelvis dated 07/06/2022. TECHNIQUE: Following the IV administration of 95 of Optiray 350, CT scan of the chest, abdomen, and p ilnee was performed from the thoracic inlet to the proximal femora. Images are reviewed in the axial, sagittal, and coronal planes. IV contrast was administered without complication. A dose lowering te chnique was utilized adhering to the principles of ALARA. The examination is degraded by streak artif act from the right arm which could not be elevated above the chest or abdomen. CT DOSE: 3949.62 mGy.cm FINDINGS: CHEST: Thyroid: Mildly enlarged and heterogeneous. Thoracic aorta: There is atherosclerotic calcification of the thoracic aorta, which is normal in shanna carrillo and demonstrates standard 3-vessel arch anatomy. No dissection is seen. Pulmonary vasculature: The pulmonary trunk is normal in caliber. There are no filling defects identif ied in the central pulmonary vessels to indicate pulmonary embolus. Note that this examination was no t protocoled for evaluation of the pulmonary arteries. Heart: The heart is normal in size noting trace pericardial effusion. The coronary arteries are dense ly calcified. Lungs and pleural spaces: Evaluation of the lung parenchyma is degraded by motion artifact. There is moderate emphysema. No air space consolidation typical for pneumonia, pleural effusion, or pneumothor ax is identified. Secretions are noted in the trachea. A 3.6 x 3.1 cm right suprahilar lung mass is s imilar to previous. This is best seen on image 110. There are satellite nodules in the right upper lo be which measure up to 1.2 cm. A 1.3 cm right lower lobe nodule on image #75 and a 1.1 cm groundglass lesion in the right lower lobe on image 197 are also unchanged. No left pulmonary lesions are clearl y identified. There is mild bibasilar scarring/atelectasis. Mediastinum: There is no mediastinal hematoma. Mediastinal lymphadenopathy similar to previous. A sub carinal node measures 4.2 x 1.7 cm. A precarinal node measures 2.2 x 1.4 cm. Kathy: Right hilar adenopathy is similar to previous. A node on image 135 measures 3.1 x 2.9 cm. The l eft hilum is clear. Axillae: There is no axillary lymphadenopathy. Bony thorax: The skeletal structures are osteopenic. 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 Numerous patho logic rib fractures are unchanged. There are pathological inferior endplate compression fractures of T9 and T11. These have also not significantly changed. No acute fracture is clearly identified. There is extension of tumor into the anterior epidural space at T9 and T10. Tumor also encroaches upon the right neural foramen at T6-T7 as seen on image #126. ABDOMEN AND PELVIS: Liver: The contrast-enhanced liver is enlarged, measuring 25.5 cm in length. Diffusely diminished hep atic attenuation indicates steatosis. There is evidence of extensive/diffuse hepatic metastatic disea se. A conglomerate lesion in the left lobe on image #114 measures up to 7.5 cm. There is no intrahepa tic biliary ductal dilatation. The hepatic veins and portal veins are patent. Gallbladder: Surgically absent noting clips in the gallbladder fossa. Spleen: Normal in size and attenuation. Pancreas: Unremarkable. Adrenal glands: Bilateral nodularity of the adrenal glands is unchanged. Kidneys: The contrast enhanced kidneys demonstrate cortical atrophy and are without hydronephrosis. T he kidneys enhance symmetrically. A 1.8 cyst is noted in the right lower pole. Additional subcentimet er cortical hypodensities also likely represent cysts but are too small for definitive characterizati on. Abdominal vasculature: The abdominal aorta is normal in course and caliber noting advanced atheroscle rotic calcification. Stomach and bowel: There is a small hiatal hernia. There is mild colonic diverticulosis without CT ev idence of acute diverticulitis. No bowel obstruction is seen. Mild fecal retention is noted throughou t the colon. The appendix is well-visualized and normal. Peritoneum: A small amount of perihepatic ascites has increased from previous. No intraperitoneal sahil e air is seen. Lymphadenopathy: Enlarged lymph nodes in the sonia hepatis are similar to previous. These measure up to 14 mm in short axis. An enlarged portacaval node is unchanged and measures 17 mm in short axis. Th ere is no retroperitoneal, pelvic sidewall, or inguinal adenopathy. Pelvic viscera: The prostate gland is enlarged and heterogeneous noting median lobe hypertrophy. The bladder is distended and otherwise grossly unremarkable. There are bilateral fat-containing inguinal hernias. Skeletal structures: The skeletal structures are osteopenic. Again seen is evidence of extensive oste olytic metastatic disease throughout the lumbosacral spine and bony pelvis. No acute fracture is iden tified. A pathologic inferior endplate compression fracture of L2 is unchanged. IMPRESSION: 1. No acute posttraumatic intrathoracic abnormality is identified. 2. There is no evidence of solid organ injury in the abdomen or pelvis. 3. Again seen is a right suprahilar lung mass with several additional right-sided pulmonary lesions. The primary lesion appears modestly increased in size as compared to 07/06/2022. 4. Mediastinal and right hilar adenopathy has also not appreciably changed. 5. The liver is enlarged and steatotic, and infiltrated by diffuse metastatic disease. Hepatic metast atic disease appears to have significantly progressed as compared to 07/06/2022. 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 7. Numerous pathological fractures are unchanged. No new fracture is clearly identified. 8. Note that tumor extends into the anterior epidural space at T9 and T10. Tumor also encroaches on t he right T6-T7 neural foramen. 9. A small amount of perihepatic ascites has modestly increased from previous. 10. Emphysema. 11. There is no airspace consolidation typical for pneumonia, pleural effusion, or pneumothorax. 12. Additional findings as above. ACT 112: Negative or not required by law. Electronically signed by: Carlos Jennings M.D. 07/18/2022 9:05 AM
[2022-07-18] MEDS: INSULIN ASPART PER UNIT SC SCH ×4 (09:16→20:26)
[2022-07-18] MEDS ORDERED: INSULIN ASPART PER UNIT SC SCH (12:00)
--- NOTE | 2022-07-18 12:32 | XRay Report ---
BONY ORBITS 3 VIEWS CLINICAL HISTORY: MRI clearance. FINDINGS: 3 views of the bony orbits are obtained. There is no radiodense/metallic foreign body seen in the region of the bony orbits. The bony orbits are intact as imaged. The visualized paranasal sinu ses and the mastoid air cells appear clear. The imaged calvarium appears intact. IMPRESSION: There is no radiodense/metallic foreign body seen in the region of the bony orbits. ACT 112: Negative or not required by law. Electronically signed by: Carlos Jennings M.D. 07/18/2022 12:31 PM
--- NOTE | 2022-07-18 13:03 | Hospitalist Progress Note ---
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 There is a lung mass that is likely from a lung site. Oncology consultation requested and pending. Liver ultrasound and brain MRI scan ordered and pending. Liver enzymes are markedly abnormal as expected. Chest CTA did not suggest PE. (2) CHF (congestive heart failure): Plan: History of chronic diastolic CHF. Although he has peripheral edema this is probably related to his liver metastases. No overt CHF at this time. Will monitor intake and output. Intravenous Lasix has been discontinued. Lower extremity venous Dopplers negative for DVT. (3) Multiple falls: Plan: supportive care. OT and PT assessments when appropriate (4) Diabetes mellitus, type II: Plan: ADA diet. Basal insulin has been initiated. Sliding scale coverage as needed. Metformin and glipizide have been discontinued for now. (5) COPD (chronic obstructive pulmonary disease): Plan: Currently stable Treat as necessary. (6) RICKEY (obstructive sleep apnea): Plan: treat as needed (7) CAD (coronary artery disease): Plan: Continue current medications. Stable . He has a chronically elevated troponin level ut there is no acute evidence of myocardial infarction. Plan to be determined Admission and Anticipated Discharge Date Admission Date: July 18, 2022 Subjective Alert and oriented but he appears chronically ill. He is known small cell cancer liver metastases with suspected lung primary. Liver ultrasound and brain MRI scan ordered per oncology request. Peripheral edema is probably from hepatic metastases and amlodipine could be contributing. IV Lasix stopped. He is now on basal insulin therapy for diabetic control. Review of Systems Review of Systems: Constitutional-no fever or chills. Appears chronically ill and very weak ENT-no blurred vision, no double vision, no epistaxis, no sore throat Respiratory-no cough, no wheezing, no shortness of breath Cardiac-no palpitations, no chest pain, no syncope GI-no nausea, vomiting, diarrhea, melena, hematochezia -no urinary retention, no urinary incontinence, no dysuria, no hematuria Musculoskeletal-no joint pain, no muscle tenderness. Severe generalized weakness. Diffuse bilateral lower extremity edema Skin-no bruising, no rashes, no pruritus. Pallor noted Neuro-generalized severe weakness noted. No focal deficits Psych-depressed affect Physical Exam Physical Exam: General-awake and alert but he appears chronically ill. HEENT-head atraumatic and normocephalic, pupils equal and reactive to light, extraocular muscles intact Neck-no lymphadenopathy or thyromegaly, trachea midline Chest-clear to auscultation percussion anteriorly. No rales wheezing or rhonchi Cardiac-regular rate and rhythm, normal S1 and S2 Abdomen-somewhat distended. Bowel sounds are active however. Extremities-pitting edema noted in bilateral lower extremities from the waist down Neuro-generalized weakness. No focal deficits Psych-depressed affect Results & Data Results & Data ([facility]) Vital Signs (Past 12 Hours) Vital Signs Temp Pulse Pulse Pulse Resp BP BP 07/18/22 12:01 37.2 C 95 H 21 120/83 07/18/22 10:22 113 H 07/18/22 07:45 37.0 C 126 H 20 120/73 07/18/22 05:48 117 H 07/18/22 05:56 37.0 C 121 H 20 123/48 L 07/18/22 04:26 114 H 26 H 119/77 07/18/22 04:00 36.8 C 117 H 24 07/18/22 02:00 106 H 20 134/67 07/18/22 01:43 91 H 23 07/18/22 01:43 153/100 H 07/18/22 01:39 100 H 20 07/18/22 01:15 131/90 07/18/22 01:15 92 H 23 07/18/22 01:00 79 24 Pulse Ox O2 Del Method 07/18/22 12:01 92 Room Air 07/18/22 10:22 07/18/22 07:45 92 Room Air 07/18/22 05:48 07/18/22 05:56 92 Room Air 07/18/22 04:26 94 Room Air 07/18/22 04:00 95 Room Air 07/18/22 02:00 93 Room Air 07/18/22 01:43 95 07/18/22 01:43 07/18/22 01:39 07/18/22 01:15 07/18/22 01:15 07/18/22 01:00 Laboratory Results Abnormal lab results 07/17/22 07/17/22 07/17/22 Range/Units 00:36 00:36 00:36 WBC (4.8-10.8) K/ul RDW Std Deviation (36.4-46.3) fL RDW Coeff of Jatinder (11.5-14.5) % Plt Count (130-400) K/uL Neut # (Auto) (1.4-6.5) K/uL Lymph # (Auto) (1.2-3.4) K/uL Immature Gran # (Auto) (0.00-0.02) K/uL Absolute Nucleated RBC (0-0) K/uL PT 12.8 H (9.0-12.0) Seconds INR 1.2 H (0.9-1.1) VBG pH (7.36-7.41) Chloride (98-107) mmol/L Anion Gap (3-11) BUN (6-23) mg/dl BUN/Creatinine Ratio (10-20) Glucose (70-99(Fasting)) mg/dl POC Glucose (70-99) mg/dl Magnesium (1.7-2.4) mg/dl Total Bilirubin (0.2-1.0) mg/dl Direct Bilirubin 5.6 H (0-0.2) mg/dl AST (13-39) U/L ALT (7-52) U/L Alkaline Phosphatase (34-104) U/L Total Creatine Kinase 420 H (30-223) U/L Troponin I High Sens (0-20) pg/ml Total Protein (6.0-8.3) gm/dl Albumin (3.4-5.0) gm/dl Globulin (2.5-4.0) gm/dl Lipase (11-82) U/L Procalcitonin 3.27 H (0-0.5) ng/ml Urine Glucose (UA) (Negative) 07/17/22 07/17/22 07/17/22 Range/Units 22:58 23:21 23:21 WBC (4.8-10.8) K/ul RDW Std Deviation (36.4-46.3) fL RDW Coeff of Jatinder (11.5-14.5) % Plt Count (130-400) K/uL Neut # (Auto) (1.4-6.5) K/uL Lymph # (Auto) (1.2-3.4) K/uL Immature Gran # (Auto) (0.00-0.02) K/uL Absolute Nucleated RBC (0-0) K/uL PT (9.0-12.0) Seconds INR (0.9-1.1) VBG pH (7.36-7.41) Chloride 95 L (98-107) mmol/L Anion Gap 14 H (3-11) BUN 27 H (6-23) mg/dl BUN/Creatinine Ratio 22.9 H (10-20) Glucose 440 H* (70-99(Fasting)) mg/dl POC Glucose 487 H* (70-99) mg/dl Magnesium 2.8 H (1.7-2.4) mg/dl Total Bilirubin 10.0 H (0.2-1.0) mg/dl Direct Bilirubin (0-0.2) mg/dl AST 491 H (13-39) U/L ALT 424 H (7-52) U/L Alkaline Phosphatase 479 H (34-104) U/L Total Creatine Kinase (30-223) U/L Troponin I High Sens 35.5 H D (0-20) pg/ml Total Protein (6.0-8.3) gm/dl Albumin (3.4-5.0) gm/dl Globulin (2.5-4.0) gm/dl Lipase 322 H (11-82) U/L Procalcitonin (0-0.5) ng/ml Urine Glucose (UA) 3+ H (Negative) 07/18/22 07/18/22 07/18/22 Range/Units 00:36 01:07 02:22 WBC 12.60 H (4.8-10.8) K/ul RDW Std Deviation 62.4 H (36.4-46.3) fL RDW Coeff of Jatinder 19.1 H (11.5-14.5) % Plt Count 90 L (130-400) K/uL Neut # (Auto) 10.30 H (1.4-6.5) K/uL Lymph # (Auto) 1.02 L (1.2-3.4) K/uL Immature Gran # (Auto) 0.56 H (0.00-0.02) K/uL Absolute Nucleated RBC 0.03 H (0-0) K/uL PT (9.0-12.0) Seconds INR (0.9-1.1) VBG pH 7.46 H (7.36-7.41) Chloride (98-107) mmol/L Anion Gap (3-11) BUN (6-23) mg/dl BUN/Creatinine Ratio (10-20) Glucose (70-99(Fasting)) mg/dl POC Glucose 364 H* (70-99) mg/dl Magnesium (1.7-2.4) mg/dl Total Bilirubin (0.2-1.0) mg/dl Direct Bilirubin (0-0.2) mg/dl AST (13-39) U/L ALT (7-52) U/L Alkaline Phosphatase (34-104) U/L Total Creatine Kinase (30-223) U/L Troponin I High Sens (0-20) pg/ml Total Protein (6.0-8.3) gm/dl Albumin (3.4-5.0) gm/dl Globulin (2.5-4.0) gm/dl Lipase (11-82) U/L Procalcitonin (0-0.5) ng/ml Urine Glucose (UA) (Negative) 07/18/22 07/18/22 07/18/22 Range/Units 04:49 04:53 04:53 WBC (4.8-10.8) K/ul RDW Std Deviation (36.4-46.3) fL RDW Coeff of Jatinder (11.5-14.5) % Plt Count (130-400) K/uL Neut # (Auto) (1.4-6.5) K/uL Lymph # (Auto) (1.2-3.4) K/uL Immature Gran # (Auto) (0.00-0.02) K/uL Absolute Nucleated RBC (0-0) K/uL PT (9.0-12.0) Seconds INR (0.9-1.1) VBG pH (7.36-7.41) Chloride (98-107) mmol/L Anion Gap 13 H (3-11) BUN 27 H (6-23) mg/dl BUN/Creatinine Ratio 28.1 H (10-20) Glucose 341 H* (70-99(Fasting)) mg/dl POC Glucose 334 H* (70-99) mg/dl Magnesium (1.7-2.4) mg/dl Total Bilirubin 9.9 H (0.2-1.0) mg/dl Direct Bilirubin 6.3 H (0-0.2) mg/dl AST 631 H (13-39) U/L ALT 428 H (7-52) U/L Alkaline Phosphatase 480 H (34-104) U/L Total Creatine Kinase (30-223) U/L Troponin I High Sens 37.5 H (0-20) pg/ml Total Protein 5.4 L (6.0-8.3) gm/dl Albumin 3.1 L (3.4-5.0) gm/dl Globulin 2.3 L (2.5-4.0) gm/dl Lipase (11-82) U/L Procalcitonin (0-0.5) ng/ml Urine Glucose (UA) (Negative) 07/18/22 07/18/22 07/18/22 Range/Units 05:34 05:36 07:25 WBC (4.8-10.8) K/ul RDW Std Deviation (36.4-46.3) fL RDW Coeff of Jatinder (11.5-14.5) % Plt Count (130-400) K/uL Neut # (Auto) (1.4-6.5) K/uL Lymph # (Auto) (1.2-3.4) K/uL Immature Gran # (Auto) (0.00-0.02) K/uL Absolute Nucleated RBC (0-0) K/uL PT (9.0-12.0) Seconds INR (0.9-1.1) VBG pH (7.36-7.41) Chloride (98-107) mmol/L Anion Gap (3-11) BUN (6-23) mg/dl BUN/Creatinine Ratio (10-20) Glucose (70-99(Fasting)) mg/dl POC Glucose 365 H* 378 H* 531 H* (70-99) mg/dl Magnesium (1.7-2.4) mg/dl Total Bilirubin (0.2-1.0) mg/dl Direct Bilirubin (0-0.2) mg/dl AST (13-39) U/L ALT (7-52) U/L Alkaline Phosphatase (34-104) U/L Total Creatine Kinase (30-223) U/L Troponin I High Sens (0-20) pg/ml Total Protein (6.0-8.3) gm/dl Albumin (3.4-5.0) gm/dl Globulin (2.5-4.0) gm/dl Lipase (11-82) U/L Procalcitonin (0-0.5) ng/ml Urine Glucose (UA) (Negative) 07/18/22 07/18/22 07/18/22 Range/Units 07:26 07:28 11:30 WBC (4.8-10.8) K/ul RDW Std Deviation (36.4-46.3) fL RDW Coeff of Jatinder (11.5-14.5) % Plt Count (130-400) K/uL Neut # (Auto) (1.4-6.5) K/uL Lymph # (Auto) (1.2-3.4) K/uL Immature Gran # (Auto) (0.00-0.02) K/uL Absolute Nucleated RBC (0-0) K/uL PT (9.0-12.0) Seconds INR (0.9-1.1) VBG pH (7.36-7.41) Chloride (98-107) mmol/L Anion Gap (3-11) BUN (6-23) mg/dl BUN/Creatinine Ratio (10-20) Glucose (70-99(Fasting)) mg/dl POC Glucose 348 H* 322 H* 152 H (70-99) mg/dl Magnesium (1.7-2.4) mg/dl Total Bilirubin (0.2-1.0) mg/dl Direct Bilirubin (0-0.2) mg/dl AST (13-39) U/L ALT (7-52) U/L Alkaline Phosphatase (34-104) U/L Total Creatine Kinase (30-223) U/L Troponin I High Sens (0-20) pg/ml Total Protein (6.0-8.3) gm/dl Albumin (3.4-5.0) gm/dl Globulin (2.5-4.0) gm/dl Lipase (11-82) U/L Procalcitonin (0-0.5) ng/ml Urine Glucose (UA) (Negative) PG Care Time/CCT Total # of Minutes Spent Total Time Spent with Patient: Total time spent is greater than 50% in coordination of care (as documented) at patient's floor/unit and/or counseling patient: Coding Level of Care Code 10704 Subseq Hosp Care Lvl 3 Diagnoses 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
--- NOTE | 2022-07-18 13:29 | Magnetic Resonance Report ---
MRI OF THE BRAIN WITHOUT IV CONTRAST CLINICAL HISTORY: Metastatic disease. COMPARISON STUDY: CT of the brain dated 07/18/2022. TECHNIQUE: MRI of the brain was initiated. Axial diffusion weighted, axial T2, axial T2*, and sagitta l T1-weighted sequences were acquired. These sequences are severely compromised by motion artifact an d of limited diagnostic utility. The examination was discontinued at this time due to lack of patient cooperation. IV contrast was not administered. FINDINGS: Brain parenchyma: There is age-related involutional change and microangiopathic disease. There is no restricted diffusion seen typical for acute ischemia. There is no obvious hemorrhage. The cerebellar tonsils are normal in configuration. No obvious mass lesion is seen. Ventricles, sulci, and cisterns: Prominent secondary to positional change. Pituitary and sella: Grossly unremarkable. Intracranial vasculature: Flow voids appear maintained at the skull base. Orbits: Orbital contents are grossly unremarkable noting bilateral ocular lens implants in place. Sinuses and mastoids: Clear. Calvarium: Grossly unremarkable. Cervical cord: Partially visualized cervical spinal cord is normal in morphology and signal intensity . IMPRESSION: 1. Severely motion compromised and incomplete examination. This is of limited diagnostic value. 2. There is no restricted diffusion identified typical for acute ischemia. 3. No obvious mass lesion or large hemorrhage is seen. Intracranial metastatic disease is not exclude d on this examination. ACT 112: Negative or not required by law. Electronically signed by: Carlos Jennings M.D. 07/18/2022 1:27 PM
--- NOTE | 2022-07-18 16:14 | Ultrasound Report ---
ULTRASOUND RIGHT UPPER QUADRANT ABDOMEN CLINICAL HISTORY: Hepatic metastatic disease. COMPARISON STUDY: Abdominal CT performed the same day 07/18/2022. TECHNIQUE: Real-time, grayscale, and color flow sonography of the right upper quadrant of the abdomen was performed. Images are reviewed in the transverse and longitudinal planes. FINDINGS: Liver: The liver is enlarged and heterogeneous, and infiltrated by diffuse hepatic metastatic disease . Increased echotexture indicates steatosis. There is no intrahepatic biliary ductal dilatation. The main portal vein is patent. Gallbladder: The gallbladder is surgically absent. The common bile duct measures up to 0.3 cm in diam eter. Pancreas: Visualized portions of the pancreatic head are normal in appearance. The majority of the pa ncreas was not visualized due to overlying bowel gas. Right kidney: Survey images of the right kidney demonstrate mild cortical atrophy. Echotexture is nor mal. There is no hydronephrosis. Ascites: None. IMPRESSION: 1 The liver is enlarged and infiltrated by diffuse metastatic disease. This was better assessed on to day's CT scan. 2. Status post cholecystectomy. ACT 112: Negative or not required by law. Electronically signed by: Carlos Jennings M.D. 07/18/2022 4:12 PM
--- NOTE | 2022-07-18 19:43 | Electrocardiogram Report ---
Test Reason : Blood Pressure : / mmHG Vent. Rate : 080 BPM Atrial Rate : 080 BPM P-R Int : 102 ms QRS Dur : 078 ms QT Int : 390 ms P-R-T Axes : -27 -25 057 degrees QTc Int : 449 ms Low right atrial rhythm Otherwise normal ECG When compared with ECG of 06-JUL-2022 10:58, Premature atrial complexes are no longer Present Confirmed by Derrick Braden ([id number]) on 07/18/2022 7:42:50 PM Referred By: REFERRED SELF Confirmed By:Derrick Braden
[2022-07-19 00:30] VITALS: TEMP 100
[2022-07-19] MEDS ORDERED: SODIUM CHLORIDE 0.9% 1000ML 500 ML IV ONE (03:44)
[2022-07-19] MEDS ORDERED: SODIUM CHLORIDE 0.9% 1000ML 250 ML IV ONE (03:49)
[2022-07-19] MEDS ORDERED: ALBUMIN 25% 100 mL 25 GM/100 ML VIAL IV ONE (03:49)
[2022-07-19] MEDS ORDERED: STAT IV Infusion **Titration per Protocol STA ×3 (04:05→06:13)
[2022-07-19] MEDS ORDERED: NOREPINEPHRINE/D5W 4 MG/250 ML IV ONE (04:09)
[2022-07-19 04:13] LABS: Base Excess VBG 5.2 mEq/L; HCO3 VBG 33 mmol/L; Oxygen Saturation VBG < 60.0 %; PCO2 VBG 59 mmHg (38-50); PO2 VBG 38 mmHg; pH VBG 7.35 (7.36-7.41)
[2022-07-19] MEDS ORDERED: NOREPINEPHRINE/D5W 4 MG/250 ML PLCT IV SCH (04:15)
[2022-07-19] MEDS ORDERED: fentaNYL citrate 100 MCG/2 ML VIAL ONE (04:41)
[2022-07-19 04:43] LABS: Anisocytosis Present; Basophils # (auto) 0.03 K/uL (0-0.2); Basophils % (auto) 0.3 %; Eosinophils % (auto) 0.9 %; Hematocrit (blood only) 50.5 % (40.1-51.0); Hemoglobin 17.1 g/dl (14.0-18.0); Immature Granulocytes # (auto) 0.71 K/uL (0.00-0.02); Immature Granulocytes % (auto) 6.1 %; Lymphocytes # (auto) 1.76 K/uL (1.2-3.4); Lymphocytes % (auto) 15.1 %; Mean Corpuscular Hemoglobin 31.5 pg (25.0-34.0); Mean Corpuscular Hgb Conc 33.9 g/dL (32.0-36.0); Mean Platelet Volume 11.9 fL (9.4-12.4); Monocytes # (auto) 0.67 K/uL (0.24-0.82); Monocytes % (auto) 5.8 %; Neutrophils # (auto) 8.38 K/uL (1.4-6.5); Neutrophils % (auto) 71.8 %; Nucleated RBC # (auto) 0.19 K/uL (0-0); Nucleated RBC % (auto) 1.6 %; Platelet Count 91 K/uL (130-400); Polychromasia 1+; RDW Coefficient of Variation 21.1 % (11.5-14.5); RDW Standard Deviation 67.7 fL (36.4-46.3); Red Blood Count 5.43 M/uL (4.63-6.08); White Blood Count 11.65 K/ul (4.8-10.8)
--- NOTE | 2022-07-19 04:47 | Communication Note ---
Date of Service: July 19, 2022 Notified early this morning the patient was demonstrating difficulty breathing and was also showing softer blood pressures. On arrival, patient was found to be obtunded, with effortful breathing and use of accessory muscles on OxiMask. Attempted to obtain blood pressure multiple times, but was unable. Left radial pulse was also not palpable, however left femoral pulse was 2+. Capillary refill in the upper extremities was approximately 4 seconds Patient demonstrated tachycardia initially with regular rhythm Gurgling sounds were heard from the upper airway. Airway was suctioned. Lungs demonstrated bilateral crackles primarily in the upper lung plaza, right greater than left. Abdomen was mildly distended, unable to assess for tenderness. Pupils were equal and reactive to light, though sluggish. Unable to follow commands. No stiffness appreciated in the upper or lower extremities. Following assessment, a chest x-ray, laboratories, and an ECG were ordered. ECG did not show appreciable changes compared to prior. NSR. Chest x-ray did appear to show interstitial edema primarily in the upper lung plaza Labs pending throughout work-up Patient's obtunded state, respiratory distress, and lack of palpable upper extremity pulses and blood pressure were consistent with shock - etiology not clear at that time, though work-up with laboratories was ongoing. BiPAP was immediately initiated, duo nebs were given, and patient was given 250 cc bolus of lactated Ringer's alongside 25 g of 25% albumin (given unclear whether or not how much of the respiratory distress was secondary to known HFpEF). Patient's chart was thoroughly reviewed throughout this work-up; noted that he is currently suffering from metastatic cancer and identified is a DNR/DNI. Primary contact, patient's sister, was called early during these interventions given rapid decline in his overall state. She stated that the patient and her did not have discussions about what to do in situations like this, i.e. emergency; she believes he has forms at home however. Attempted to call patient's daughter, who is listed as secondary contact but would be decision-maker in this situation, however she did not answer despite [address] Baeza was able to reach her after an additional attempt - please see her addendum for details. In brief, she noted that her father would want vasopressor and antibiotics, at least initially. Prior to transfer to ICU, patient did flip into AFib with RVR. He spontaneously converted thereafter. Patient was subsequently transferred to the ICU for immediate hemodynamic support - reconverted into AFib just prior to transfer. Imaging deferred to ICU discretion following stabilization. Please see Dr. Bazea's addendum for further details and/or clarifications. Agree with above. Upon arrival to the MICU patient was hemodynamically unstable - again in AF with RVR, rates of 130's to 140's with low blood pressure on escalating doses of Levophed. He had synchronized cardioversion performed with temporary return to sinus tachycardia with frequent ectopy. Patient had a right IJ triple lumen CVC and right radial arterial line placed by the MICU team. Hanna catheter placed with return of minimal dark yellow urine. Patient was started on Amiodarone drip following bolus for recurrent atrial fibrillation. Remained on BiPAP - with worsening respiratory status with progression of respiratory acidosis. Patient's daughter, Stephanie Ott, was reached via telephone ([phone], Kishor [phone]). She was updated regarding patient's rapid decline and critically ill status. Daughter aware of patient's DNR/DNI status and is in agreement to comply with his wishes. I advised patient to come to the hospital to see her father due to his declining status despite aggressive measures. Upon arrival to the MICU daughter was updated on her father's condition. Comfort measures discussed. Daughter decided to not escalate care and to provide comfort measures only for her father at this time. Patient had palliative withdrawal of care and was provided a morphine drip for management of pain and shortness of breath. He at 06:55. Daughter at bedside at time of . Pronounced by MICU ENVIRONMENT COORDINATOR Resident Activity Tracking Resident Involvement: Resident Care Provided Care Provided: Adult [facility] Medicine
[2022-07-19] MEDS ORDERED: AMIODARONE 150MG / 100ML D5W IV ONE (05:03)
[2022-07-19] MEDS ORDERED: AMIODARONE 360MG / 200ML D5W IV ONE (05:03)
[2022-07-19 05:08] LABS: Potassium 5.8 mmol/L (3.5-5.1)
[2022-07-19 05:15] LABS: Albumin Globulin Ratio 1.2 (0.9-2); Albumin Level 3.5 gm/dl (3.4-5.0); BUN Creatinine Ratio 23.5 (10-20); Bilirubin,Total 19.2 mg/dl (0.2-1.0); Calcium 9.8 mg/dl (8.5-10.1); Creatinine Clr Calc Pharmacy 37.4 ml/min; Est GFR (African American) 36.7 ml/min; Est GFR (Non-African American) 31.7 ml/min; Globulin 2.9 gm/dl (2.5-4.0); Total Protein 6.4 gm/dl (6.0-8.3); Troponin I High Sensitivity 174.6 pg/ml (0-20)
--- NOTE | 2022-07-19 05:21 | Procedure Note ---
Procedure Note Date of Service July 19, 2022 Note INTERNAL JUGULAR CENTRAL LINE PROCEDURE NOTE: Procedure: Internal Jugular Central Line Placement Attending: Dr. Stone Provider: MICAELA Hussein Indication: Central Drug Administration, Poor Venous Access, Multiple Lab Draws Necessary, etc. Anesthesia: None Line placed emergently in the setting of shock requiring vasopressor support. A time-out was completed verifying correct patient, procedure, site, positioning, and implants(s) or special equipment if applicable. Patients right neck was cleansed and draped in the typical sterile fashion using Chloraprep. The Internal Jugular Vein and Carotid Artery were identified using ultrasound. The superficial tissue was anesthetized using 3 mL of 1% lidocaine without epinephrine under direct visualization with the ultrasound. After adequate anesthetization was achieved, the Internal Jugular vein was cannulated under direct ultrasound guidance using an introducer needle on a syringe. Good venous blood return was maintained prior to removal of syringe from introducer needle. Using Seldinger Technique, a guide wire was advanced through the introducer needle without resistance. The introducer needle was removed and ultrasound images were obtained of the guide wire within the Internal Jugular Vein and saved to the patients medical record. A small incision was made in penetrating fashion at the guide wire insertion site utilizing an 11 blade scalpel. The dilator was advanced to the vessel without resistance. The dilator was exchanged for the triple lumen catheter which was advanced into the vessel without resistance. The guide wire was removed intact from the catheter without issue. Claves were placed on each catheter tip with confirmation of good blood flow from each lumen. Each port was easily flushed with sterile saline. The catheter was placed at 16 cm and sut[address] in place. BioPatch was applied to the catheter and a sterile Tegaderm dressing was applied over the catheter with careful attention to sterility. Patient tolerated procedure well. No immediate complications were met. Post procedure x-ray was completed, placement was appropriate and no pneumothorax was noted. Images obtained are saved for permanent record Procedural Ultrasound Guidance: Procedure Date: 07/19/2022 Indication: Central venous catheter insertion Attending: Dr. Stone Provider: MICAELA Hussein Artery AND Vein visualized: Yes Compressible Vein: Yes Guidewire or Short Catheter seen in vein prior to dilation: Yes Line confirmed in Vein with ultrasound: Yes Coding CPT Codes Tubes, Drains, and Vasc Access - Tubes, Drains, and Vasc Access: [id number] Place catheter in vein superior or inferior vena cava ([id number]) Tubes, Drains, and Vasc Access - Tubes, Drains, and Vasc Access: [id number] Ultrasound Guidance For Vascular ([id number]) [facility] Procedure Codes (Charges) Tubes, Drains, and Vasc Access Procedure 1: Tubes, Drains, and Vasc Access: [id number] Place catheter in vein superior or inferior vena cava Procedure 2: Tubes, Drains, and Vasc Access: [id number] Ultrasound Guidance For Vascular
--- NOTE | 2022-07-19 05:21 | Critical Care Consultation ---
Date of Consultation July 19, 2022 Assessment & Plan (1) Shock: Patient presented to the ICU with severe hypotension and hypoxic hypercapnic respiratory failure while obtunded. Per conversation with hospitalist, daughter was okay with vasopressors despite DNR/DNI status. Patient was found to be in A. fib RVR and was cardioverted to sinus tachycardia but remained hypotensive and hypoxic. A-line and central line were emergently inserted. Patient was on high-dose Levophed and amiodarone drip was started for rate control. He was on 100% FiO2 on BiPAP at 18/10. He remained hypercapnic and hypotensive. Unsure of etiology of shock although he did have elevated Pro-Gilberto and cannot rule out sepsis or possible aspiration. He has worsening renal function, hyperkalemia and decrease liver function as well. Troponin elevated at 174. He is too unstable to undergo CT imaging. ABG with respiratory acidosis and severe hypoxia on 100% FiO2. 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 Patient's prognosis severely guarded. Upon conversation with the patient's daughter with myself and the hospitalist, Dr. Baeza, decision was made to transition to comfort measures due to his declining status despite aggressive measures. We are now transitioning to comfort measures only and will proceed with palliative withdrawal once analgesics have been started. CRITICAL CARE TIME - I have personally spent 65 minutes of critical care time in the direct management of this patient. This is a life/limb threatening event. This includes time spent evaluating patient, direct bedside care, chart review, placing or ders, interpretation of diagnostic studies, discussion with consultants, patient, and family members, as well as other required patient management activities. This time is exclusive of all separately billable procedures, and teaching time and separate from and in addition to any other critical care service time. (2) Liver failure: (3) Recurrent falls: (4) Elevated troponin: (5) Generalized weakness: (6) Metastatic small cell carcinoma involving liver with unknown primary site: (7) CHF (congestive heart failure): (8) COPD (chronic obstructive pulmonary disease): (9) HLD (hyperlipidemia): (10) CAD (coronary artery disease): (11) Diabetes mellitus, type II: History of Present Illness Attending Physician: Bruce Kolb MD History of Present Illness Patient is a 77-year-old male with metastatic small cell carcinoma involving the lungs, spine and liver, diastolic heart failure, DM type II, COPD, RICKEY, CAD. He was reported to have not undergone treatment for recently diagnosed cancer. He presented to the emergency department on 07/17 with increased falls and generalized weakness and was admitted inpatient. Patient is DNR/DNI. Earlier this evening he was found by nurse to be short of breath and unresponsive. They were unable to obtain oxygen saturation or blood pressure and he was transferred emergently to the ICU on BiPAP and on vasopressors. Upon arrival he was noted to be in A. fib RVR with heart rate in the 190s and was emergently cardioverted with 100 J. He successfully converted to sinus tachycardia with 1 attempt. Patient has remained extensively hypotensive and hypoxic on BiPAP with 100% FiO2. He is on high-dose Levophed. Central line and A-line were inserted emergently. Family was called to the bedside as patient's condition is severely guarded. Given his CODE STATUS and worsening condition despite aggressive measures, family has opted to pursue comfort measures. We will transition to morphine drip here in the ICU and discontinue BiPAP and vasopressor support in order to pursue palliative withdrawal per family wishes. Allergies Allergy/AdvReac Type Severity Reaction Status Date / Time losartan Allergy Mild face Verified 07/17/22 23:37 swelling Home Medications Medication Instructions Recorded Confirmed Type albuterol sulfate 90 mcg/actuation 2 puff inhalation QID PRN 02/03/19 07/18/22 History aerosol inhaler shortness of breath aspirin 81 mg chewable tablet 81 mg PO QAM 02/03/19 07/18/22 History budesonide-formoterol HFA 160 2 puff inhalation BID 02/03/19 07/18/22 History mcg-4.5 mcg/actuation aerosol inhaler isosorbide mononitrate 30 mg 60 mg PO QAM 02/03/19 07/18/22 History tablet,extended release 24 hr amlodipine 2.5 mg tablet 2.5 mg PO QAM 12/06/19 07/18/22 History clopidogrel 75 mg tablet 75 mg PO QAM 12/06/19 07/18/22 History famotidine 20 mg tablet 20 mg PO QAM 12/06/19 07/18/22 History Medical Marijuana 1 second vp hr assessment inhalation [id number] 06/04/20 07/17/22 History cyanocobalamin (vitamin B-12) 1,000 mcg PO QAM 06/04/20 07/18/22 History 1,000 mcg tablet glipizide 10 mg tablet 10 mg PO BID 06/04/20 07/18/22 History insulin glargine 100 unit/mL 30 unit subcut HS 06/16/20 07/18/22 History subcutaneous solution metformin 1,000 mg tablet 1,000 mg PO BID #60 tabs 06/16/20 07/18/22 Rx oxycodone 10 mg tablet 10 mg PO TID PRN pain #25 tabs 06/30/22 07/17/22 Rx furosemide 40 mg tablet (Lasix) 40 mg PO DAILY #30 tabs 07/08/22 07/17/22 Rx metoprolol tartrate 50 mg tablet 50 mg PO BID #60 tabs 07/08/22 07/17/22 Rx potassium chloride 20 mEq 20 meq PO DAILY #30 tabs 07/08/22 07/17/22 Rx tablet,extended release spironolactone 25 mg tablet 12.5 mg PO DAILY #30 tabs 07/08/22 07/17/22 Rx Patient History Medical History (Updated 07/19/22 @ 06:27 by MICAELA Emanuel) CAD (coronary artery disease) Chronic obstructive pulmonary disease WELL CONTROLLED PER PATIENT Diabetes mellitus, type II IDDM Fusion of spine 1993 THORACIC AREA GERD (gastroesophageal reflux disease) UNDER CONTROL HLD (hyperlipidemia) HTN (hypertension) Kidney stones PASSED ON OWN Medical marijuana use Myocardial Infarction JANUARY 2019 FOLLOWS WITH [facility] RICKEY (obstructive sleep apnea) Osteoarthritis Sleep apnea CPAP Surgical History H/O removal of cyst FOREHEAD, THIGH, HIP> ALL BENIGN History of cholecystectomy History of colonoscopy History of esophagogastroduodenoscopy (EGD) History of left cataract surgery History of tonsillectomy History of tooth extraction Hx of angioplasty NO STENTS JANUARY 2019 FOLLOWING AL> [facility] Hx of surgical procedure REMOVAL OF METAL FROM LEFT LEG OVER 10 YRS AGO Family History Sister Breast cancer Grandfather (Paternal) Myocardial infarction Uncle Myocardial infarction Father Myocardial infarction Brother Myocardial infarction Family/Other Myocardial infarction cousin Other Coronary heart disease Denies family history of Ovarian cancer Prostate cancer Colorectal cancer Social History Smoking Status: Former smoker Second Hand Exposure: No; Hx Alcohol Use: No Hx Substance Use: No Preferred Language: Khmer Communication Ability: Effective Rope Cleaner Required: No Beliefs That Will Affect Care: None marital status: Current Living Situation: Alone current occupational status: retired Other Information That Helps Us Care for You: No Feels Safe at Home: Yes Safety Concerns: Feels Safe At This Time caffeine: Yes (coffee) Dental Care, Regularly: No Physical Activity Frequency: 3-4 Times per Week Physical Activity Frequency Comment: walking the dog Seatbelt Use: always Sunscreen Use: No Assistive Devices: Denture - Upper, Denture - Lower and Glasses Review of Systems Review of Systems: Unobtainable due to cognitive status Physical Exam Constitutional: + acute distress Obtunded Eyes: PERRL, conjunctivae normal, anicteric sclerae ENMT: external ear and nose normal, oropharynx normal Neck: trachea midline, no thyromegaly Respiratory: Tachypneic, respiratory distress. On BiPAP. Symmetrical chest wall movement. Lungs diminished bilaterally. No crackles or wheezes Cardiovascular: Narrow complex tachycardia with irregular rhythm on monitor. +1 pulses peripherally radial and pedal. No murmur. Gastrointestinal (Abdomen): normal bowel sounds, soft, nontender, no hepatosplenomegaly Musculoskeletal: no cyanosis or clubbing, extremities motor strength 5/5 Skin: no rashes, warm and dry Neurologic: Obtunded, does not follow commands. PERRLA Psychiatric: Unable to assess due to reduced consciousness Genitourinary: Indwelling Hanna catheter Results & Data Results & Data ([facility]) Vital Signs (Past 12 Hours) Vital Signs Temp Pulse Pulse Resp BP Pulse Ox O2 Del Method 07/19/22 03:48 97 07/19/22 03:30 99 H 38 H 07/19/22 00:29 37.8 C H 95 H 22 97/67 L 07/18/22 22:22 106 H 07/18/22 19:54 36.8 C 86 20 123/90 92 Room Air 07/18/22 19:13 Room Air FiO2 07/19/22 03:48 80 07/19/22 03:30 100 07/19/22 00:29 07/18/22 22:22 07/18/22 19:54 07/18/22 19:13 Coding Level of Care Code Critical Care 1st 30-74 mins Diagnoses Shock R57.9 Liver failure K72.90 Recurrent falls R29.6 Elevated troponin R77.8 Generalized weakness R53.1 Metastatic small cell carcinoma involving liver with unknown primary site C78.7; C80.1 CHF (congestive heart failure) I50.31 Heart failure chronicity: acute Heart failure type: diastolic COPD (chronic obstructive pulmonary disease) J44.9 HLD (hyperlipidemia) E78.5 CAD (coronary artery disease) I25.10 Diabetes mellitus, type II E11.9 (1) CHF (congestive heart failure) Heart failure chronicity: acute Heart failure type: diastolic Qualified Code(s): I50.31 - Acute diastolic (congestive) heart failure
--- NOTE | 2022-07-19 05:21 | Procedure Note ---
Procedure Note Date of Service July 19, 2022 Note ARTERIAL LINE PROCEDURE NOTE: Procedure: Arterial Line Placement Attending: Dr. Stone Provider: MICAELA Hussein Indication: Monitoring on Pressors Anesthesia: None Line placed emergently in the setting of shock requiring vasopressor support and need for continuous hemodynamic monitoring. A time-out was completed verifying correct patient, procedure, site, positioning, and implant(s) or special equipment if applicable. Allens test was performed to ensure adequate perfusion. Patients right wrist was prepped and draped in the usual sterile fashion. Ultrasound guidance was used to aid needle placement. A 20g Arrow arterial line was introduced into the right radial artery. Catheter was threaded, and the needle was removed with appropriate blood return. Good waveform was observed. The patient tolerated the procedure well. Confirmation of placement with ultrasound. Blood Loss: Minimal Complications: None Procedural Ultrasound Guidance: Procedure Date: 07/19/2022 Indication: Arterial line insertion] Attending: Dr. Stone Provider: MICAELA Hussein Artery Identified: YES Line confirmed in Artery with ultrasound: Yes Complications: NONE Patient tolerated procedure: WELL Coding CPT Codes Tubes, Drains, and Vasc Access - Tubes, Drains, and Vasc Access: [id number] Place Catheter In Artery ([id number]) Tubes, Drains, and Vasc Access - Tubes, Drains, and Vasc Access: [id number] Ultrasound Guidance For Vascular ([id number]) [facility] [place] Codes (Charges) Tubes, Drains, and Vasc Access Procedure 1: Tubes, Drains, and Vasc Access: [id number] Place Catheter In Artery Procedure 2: Tubes, Drains, and Vasc Access: [id number] Ultrasound Guidance For Vascular
[2022-07-19] MEDS ORDERED: SODIUM BICARB 8.4% INJ 50 MEQ/50 ML SYR IV ONE (05:23)
[2022-07-19 05:27] LABS: iSTAT Art Bld Gas pCO2 Correct 73 mmHg (35-46); iSTAT Art Bld Gas pH Corrected 7.199 (7.35-7.45); iSTAT Arterial Blood Gas HCO3 29 meg/L (19-24); iSTAT Arterial Blood Gas pCO2 73 mmHg (35-46); iSTAT Arterial Blood Gas pO2 54 mmHg (80-95); iSTAT Arterial Blood Gas pO2 C 55; iSTAT Carbon Dioxide 31 mmol/L (24-31); iSTAT FiO2 100 %; iSTAT Hematocrit 44 % (42-52); iSTAT Potassium 6.5 mmol/L (3.3-5.0); iSTAT Site Art Line; iSTAT Sodium 143 mmol/L (135-144)
[2022-07-19] MEDS ORDERED: LORazepam 0.5 MG in SYRINGE 0.25 ML IV PRN (05:49)
[2022-07-19] MEDS ORDERED: LORazepam 0.5 MG TAB PO PRN (05:49)
[2022-07-19] MEDS ORDERED: ONDANSETRON 4 MG OD TAB SL PRN (05:49)
[2022-07-19] MEDS ORDERED: MoRPHine SULFATE 2 MG/ML CARP IV STA (05:49)
[2022-07-19] MEDS ORDERED: ONDANSETRON INJ 2 MG/ML 2 ML VIAL IV PRN (05:49)
[2022-07-19] MEDS ORDERED: MoRPHine SULFATE 2 MG/ML CARP ONE (05:52)
[2022-07-19] MEDS ORDERED: MoRPHine SULF/NSS 250 MG/250 ML BTL IV SCH (06:00)
[2022-07-19] MEDS ORDERED: DEXTROSE 50% 50 ML SYRINGE IV STA (06:13)
[2022-07-19] MEDS ORDERED: STAT IV STA (06:13)
[2022-07-19] MEDS ORDERED: SODIUM BICARB 8.4% INJ 50 MEQ/50 ML SYR IV STA (06:13)
[2022-07-19] MEDS ORDERED: AMIODARONE IV BOLUS & DRIP IV STA (06:13)
[2022-07-19] MEDS ORDERED: 0.2 MICRON FILTER SET 1 EACH IV STA (06:13)
[2022-07-19] MEDS ORDERED: AMIODARONE / D5W 150 MG/100 ML BAG IV STA (06:19)
[2022-07-19] MEDS ORDERED: CALCIUM GLUCONATE 10% 1,000 MG in DEXTROSE 5% 50 ML IV ONE (06:30)
[2022-07-19] MEDS ORDERED: AMIODARONE / D5W 360 MG/200 ML BAG IV ONE (06:30)
[2022-07-19 06:31] VITALS: BP 99/75; PULSE 133; O2SAT 59
--- NOTE | 2022-07-19 06:59 | XRay Report ---
XR chest 1V portable HISTORY: 77 years-old Male SOB acute shortness of breath COMPARISON: Chest radiograph 07/06/2022 and 07/19/2022, chest CT 07/18/2022 TECHNIQUE: Portable AP view of the chest FINDINGS: Cardiac silhouette is normal in size. Mild right hilar prominence. Bilateral pulmonary nodules are be tter seen and characterized on yesterday's chest CT. Right upper lobe 3.67 m nodule. Degenerative andra nges of the shoulders and spine. Osteolytic metastatic disease is also better characterized on the co mparison chest CT. There are a few healed left-sided nondisplaced left-sided rib fractures. IMPRESSION: 1. No acute process. 2. Emphysema with lymphatic, pulmonary and bony metastatic disease which is better characterized on y esterday's chest CT. ACT 112: Negative or not required by law. The above report was generated using voice recognition software. It may contain grammatical, syntax o r spelling errors. Electronically signed by: Ortiz Blevins M.D. 07/19/2022 6:58 AM
--- NOTE | 2022-07-19 07:05 | XRay Report ---
XR chest 1V portable CLINICAL HISTORY: Central venous line insertion. Metastatic disease. COMPARISON STUDY: Chest CT July 18, 2022. Chest radiograph July 19, 2022. FINDINGS: There is no pneumothorax following placement of a right internal jugular central line. Cath eter tip projects over the distal SVC. Right upper lobe mass and thoracic lymphadenopathy is better d epicted on recent chest CT. Multiple pathologic rib fractures are noted. No evidence for pulmonary ed ita. There is no pleural effusion. There is possible left basilar opacity. IMPRESSION: 1. No pneumothorax following placement of a a right internal jugular central line. Catheter tip proje cts over the distal SVC. 2. Possible left basilar opacity. This could reflect atelectasis or developing consolidation. 3. Right upper lobe mass with lymphadenopathy and skeletal metastases better depicted on chest CT. ACT 112: Negative or not required by law. Electronically signed by: Scott Lloyd M.D. 07/19/2022 7:03 AM
--- NOTE | 2022-07-19 07:07 | Death Pronouncement Note ---
Date of Service July 19, 2022 Pronouncement Note Admission Date Admission Date: July 18, 2022 PRONOUNCEMENT NOTE - Date: 07/19/2022 Time: I was contacted by nursing staff regarding the patients declining status and concerns for imminent demise. In short, patient recently been diagnosed with metastatic small cell with mets to lungs, liver, and spine. He was admitted to the hospital with increased falls and bilateral lower extremity edema. His CODE STATUS was DNR/DNI. He was found earlier this morning to be unresponsive, hypotensive, and hypoxic and was placed on BiPAP and vasopressors and transferred to ICU. He was found to be in A. fib RVR and was converted to sinus tachycardia with synchronized cardioversion. Patient's clinical status continued to decline despite aggressive measures and upon conversation with family, patient was transition to comfort measures only. He underwent palliative withdrawal of care and at this morning. Assessment: I presented to the patients room for evaluation. Upon assessment, the patient was found to be in a terminal state. Pupils were fixed and dilated without response. No palpable pulses appreciated. No spontaneous breaths noted. Heart sounds were absent. No response to painful stimuli. Time of : as pronounced by myself. Family present at bedside. Appropriate response to grief appreciated. Condolences provided. Questions were addressed and emotional support was provided. Patients primary service was contacted and made aware of patient demise. Pronouncement section of the Certificate was filled out and signed by myself. Cause of : Primary -acute hypoxic hypercapnic respiratory failure Secondary -septic shock Contributing Causes of -metastatic lung cancer, diastolic heart failure] Please feel free to contact me with any questions regarding the above-mentioned course. Contributing Factors (1) Shock: (2) Liver failure: (3) Recurrent falls: (4) Elevated troponin: (5) Generalized weakness: (6) Metastatic small cell carcinoma involving liver with unknown primary site: (7) CHF (congestive heart failure): (8) COPD (chronic obstructive pulmonary disease): (9) HLD (hyperlipidemia): (10) CAD (coronary artery disease): (11) Diabetes mellitus, type II: Additional Data Attending physician: Brcue Kolb MD Coding Level of Care Code None Diagnoses Shock R57.9 Liver failure K72.90 Recurrent falls R29.6 Elevated troponin R77.8 Generalized weakness R53.1 Metastatic small cell carcinoma involving liver with unknown primary site C78.7; C80.1 CHF (congestive heart failure) I50.31 Heart failure chronicity: acute Heart failure type: diastolic COPD (chronic obstructive pulmonary disease) J44.9 HLD (hyperlipidemia) E78.5 CAD (coronary artery disease) I25.10 Diabetes mellitus, type II E11.9
--- NOTE | 2022-07-19 07:08 | XRay Report ---
KUB HISTORY: Acute generalized abdominal pain with distention abdominal distention COMPARISON: Chest radiograph of same day, CT abdomen pelvis 07/18/2022 FINDINGS: Moderate fecal retention. Cholecystectomy. Air-filled loop of small bowel within the abdome n measures 3.5 cm. Gaseous distention of the large bowel measures up to approximately 11 cm. No deborah l calculi. No ureteral calculi. No pneumoperitoneum or pneumatosis. Multifocal osteolytic metastatic disease is better seen on the comparison CT study. IMPRESSION: 1. There are a few air-filled loops of large and small bowel which are likely physiologic. No bowel o bstruction identified. 2. Moderate fecal retention. 3. Osteolytic metastasis are better characterized on the comparison CT study. ACT 112: Negative or not required by law. The above report was generated using voice recognition software. It may contain grammatical, syntax o r spelling errors. Electronically signed by: Ortiz Blevins M.D. 07/19/2022 7:06 AM
--- NOTE | 2022-07-19 11:06 | Discharge Summary ---
Date of Service July 19, 2022 Admission HPI Per Admitting Provider 77-year-old gentleman with a past medical history of metastatic prostate cancer and small cell lung cancer with metastasis to spine, lung and liver which was recently diagnosed and has yet to undergo treatment who presents emerged department from home with generalized weakness with recurrent falls over the past week. He reports today he was unable to get up and thinks maybe this is why he was sent to the hospital. He has home health aides twice a week per EMS report. He reports feeling feverish, cough, nauseated but not pain or diarrhea. He reports he is on ASA and Plavix but denies any blood thinners otherwise. He has bruising across his abdomen which she reports is from different falls throughout the week. He reports his left flank is the most painful. The patient was recent admitted to this facility from 07/06-07/08 for weakness and recurrent falls where his widely metastatic cancer was found, liver biopsy shows small cell carcinoma. On arrival, the patient is slightly somnolent but alert, awake and oriented, afebrile with stable vital signs. He has dry mucous membranes with also 3+ pitting edema/third spacing. He was treated for HFpEF wtih lasix and spironolactone, He has some mild scleral icterus and jaundice. Biliriben is 10 Principal Diagnosis metastatic small cell cancer Discharge Exam Pt was pronounced by MICAELA Evans in the ICU Discharge Data Allergies Allergy/AdvReac Type Severity Reaction Status Date / Time losartan Allergy Mild face Verified 07/17/22 23:37 swelling Consultations 07/18/22 03:07 ED Decision to Admit Stat 07/18/22 05:44 Consult Hematology Routine 07/19/22 05:49 Consult Palliative Care Routine Ordered Studies 07/17/22 23:30 CT abd pelvis IV con only Urgent CT cervical spine wo con Urgent CT chest diagnostic w con Urgent CT head/brain wo con Urgent 07/18/22 03:29 US venous doppler LE BI Routine 07/18/22 10:46 MR brain wo con Routine US liver Routine Hospital Course (1) Metastatic small cell carcinoma involving liver with unknown primary site: Patient had liver biopsy confirmed small cell carcinoma. There is a lung mass that is likely from a lung site Liver enzymes are markedly abnormal as expected. Chest CTA did not suggest PE. PT declined with regard to respiratory status, was moved to ICU, declied further and made comfort care by family eventually dying at 0655 on 07/19/22 (2) CHF (congestive heart failure): History of chronic diastolic CHF. Although he has peripheral edema this is probably related to his liver metastases. No overt CHF at this time. Will monitor intake and output. Intravenous Lasix has been discontinued. Lower extremity venous Dopplers negative for DVT. (3) Multiple falls: (4) Diabetes mellitus, type II: (5) COPD (chronic obstructive pulmonary disease): (6) RICKEY (obstructive sleep apnea): (7) CAD (coronary artery disease): He has a chronically elevated troponin level but there was no acute evidence of myocardial infarction. Plan to be determined Total Time Total Time Spent Total Time Spent (In Minutes): It required less than 30 minutes to prepare this patient for discharge Discharge Plan Discharge Items Patient Disposition: Other Date/Time: 07/19/22 06:55 Coding Level of Care Code D/C DAY MANAGEMENT <30 MINS Diagnoses Metastatic small cell carcinoma involving liver with unknown primary site C78.7; C80.1 CHF (congestive heart failure) I50.31 Heart failure chronicity: acute Heart failure type: diastolic Multiple falls R29.6 Diabetes mellitus, type II E11.9 COPD (chronic obstructive pulmonary disease) J44.9 RICKEY (obstructive sleep apnea) G47.33 CAD (coronary artery disease) I25.10
[2022-07-19] MEDS ORDERED: AMIODARONE / D5W 360 MG/200 ML BAG IV SCH (12:15)
--- NOTE | 2022-07-19 21:57 | Electrocardiogram Report ---
Test Reason : Blood Pressure : / mmHG Vent. Rate : 095 BPM Atrial Rate : 095 BPM P-R Int : 108 ms QRS Dur : 072 ms QT Int : 344 ms P-R-T Axes : 034 -19 067 degrees QTc Int : 432 ms Possible wandering atrial pacemaker When compared with ECG of 17-JUL-2022 23:04, Multiple P wave morphologies are now present Confirmed by Gabino Torres ([id number]) on 07/19/2022 9:56:47 PM Referred By: REFERRED SELF Confirmed By:Gabino Torres
== END 2022-07-19 10:40 | disposition expired | DRG 436 ==
LOC: ED 22:47 → 2W 07-18 03:24 → SUATTDRO 07-18 03:24 → 2W 07-18 05:14 → 1E 07-19 05:26
DX: Z88.8 Allergy status to other drugs, medicaments and biological substances; I11.0 Hypertensive heart disease with heart failure; E78.5 Hyperlipidemia, unspecified; Z51.5 Encounter for palliative care; K21.9 Gastro-esophageal reflux disease without esophagitis; R74.01 Elevation of levels of liver transaminase levels; I48.91 Unspecified atrial fibrillation; I25.2 Old myocardial infarction; I25.10 Atherosclerotic heart disease of native coronary artery without angina pectoris; Z98.1 Arthrodesis status; C61 Malignant neoplasm of prostate; Z82.49 Family history of ischemic heart disease and other diseases of the circulatory system; G47.33 Obstructive sleep apnea (adult) (pediatric); C79.51 Secondary malignant neoplasm of bone; R00.0 Tachycardia, unspecified; C78.01 Secondary malignant neoplasm of right lung; E11.65 Type 2 diabetes mellitus with hyperglycemia; C80.1 Malignant (primary) neoplasm, unspecified; Z79.84 Long term (current) use of oral hypoglycemic drugs; R29.6 Repeated falls; J44.9 Chronic obstructive pulmonary disease, unspecified; Z87.891 Personal history of nicotine dependence; I50.32 Chronic diastolic (congestive) heart failure; Z66 Do not resuscitate; C78.7 Secondary malignant neoplasm of liver and intrahepatic bile duct; Z88.6 Allergy status to analgesic agent; R57.9 Shock, unspecified; K72.90 Hepatic failure, unspecified without coma